=== PATIENT | female | born 1995 | race Caucasian/White ===

== ENCOUNTER → 2019-07-17 12:55 | Outpatient (CLI) | payer SELFPAY ==
[2019-07-17 13:54] LABS: HCG,Quantitative 9951 mIU/mL
== END ==
PROVIDERS: PCP Internal Medicine; Visit Provider Emergency Medicine
DX: O20.0 Threatened abortion (principal)
CPT/HCPCS: 36415; 84702

== ENCOUNTER 2019-11-22 17:49 | Outpatient (CLI) | payer OTHER, SELFPAY ==
[2019-11-22 18:10] VITALS: BMI 38.5
[2019-11-22 18:15] VITALS: BP 147/98; PULSE 115; RESP 20; TEMP 36.8; O2SAT 98; BMI 38.5
[2019-11-22 18:26] LABS: Microscopic, Urine URINE MICROSCOPIC (MICROSCOPIC)
[2019-11-22 18:31] LABS: Appearance,Urine CLEAR (Clear); Bilirubin,Urine Negative (Negative); Blood, Urine Negative (Negative); Color,Urine YELLOW (Yellow); Glucose,Urine (UA) Negative (Negative); Ketones,Urine Negative (Negative); Leukocyte Esterase,Urine Negative (Negative); Nitrate,Urine Negative (Negative); PH,Urine 6.5 (5.0-8.5); Protein,Urine Negative (Negative); Specific Gravity, Urine 1.025 (1.005-1.030); Urobilinogen,Urine 0.2 EU/dl (0.2)
[2019-11-22 19:02] LABS: Bacteria,Urine Trace /lpf
[2019-11-22 19:10] LABS: Amphetamine/Metha Screen,Urine Negative ng/mL (<1000); Barbiturates Screen,Urine Negative ng/mL (<200); Benzodiazepines Screen,Urine Negative ng/mL (<200); Cannabinoid Screen,Urine Negative ng/mL (<50); Cocaine Screen,Urine Negative ng/mL (<300); Methadone Screen,Urine Negative ng/mL (<300); Opiate Screen,Urine Negative ng/mL (<300); Phencyclidine Screen,Urine Negative ng/mL (<25)
== END 2019-11-22 18:54 | disposition home or self-care (01) ==
LOC: OBOUT 17:54 → OB 17:56
PROVIDERS: PCP Obstetrics & Gynecology; Visit Provider Obstetrics & Gynecology
DX: O13.2 Gestational [pregnancy-induced] hypertension without significant proteinuria, second trimester (principal); O12.00 Gestational edema, unspecified trimester; Z3A.23 23 weeks gestation of pregnancy
CPT/HCPCS: 59025; 80305; 81001

== ENCOUNTER 2019-12-11 09:48 | Outpatient (CLI) | payer OTHER, SELFPAY ==
[2019-12-11 10:05] VITALS: BP 119/66; PULSE 87; RESP 18; TEMP 36.9
[2019-12-11 10:19] VITALS: BMI 38.0
[2019-12-11 10:32] LABS: Microscopic, Urine URINE MICROSCOPIC (MICROSCOPIC)
[2019-12-11 10:34] LABS: Appearance,Urine SL CLOUDY (Clear); Bilirubin,Urine Negative (Negative); Blood, Urine Negative (Negative); Color,Urine YELLOW (Yellow); Glucose,Urine (UA) Negative (Negative); Ketones,Urine Negative (Negative); Leukocyte Esterase,Urine Negative (Negative); Nitrate,Urine Negative (Negative); Protein,Urine Negative (Negative); Specific Gravity, Urine 1.025 (1.005-1.030); Urobilinogen,Urine 0.2 EU/dl (0.2)
[2019-12-11 10:49] LABS: Amphetamine/Metha Screen,Urine Negative ng/mL (<1000); Barbiturates Screen,Urine Negative ng/mL (<200); Benzodiazepines Screen,Urine Negative ng/mL (<200); Cannabinoid Screen,Urine Negative ng/mL (<50); Cocaine Screen,Urine Negative ng/mL (<300); Methadone Screen,Urine Negative ng/mL (<300); Opiate Screen,Urine Negative ng/mL (<300); Phencyclidine Screen,Urine Negative ng/mL (<25)
[2019-12-11 10:53] LABS: Bacteria,Urine Trace /lpf
[2019-12-11 11:01] VITALS: BMI 38.0
== END 2019-12-11 11:40 | disposition home or self-care (01) ==
LOC: OBOUT 09:50 → OB 09:51
PROVIDERS: PCP Internal Medicine; Visit Provider Nurse Practitioner Obstetrics & Gynecology
DX: O26.92 Pregnancy related conditions, unspecified, second trimester (principal); Z3A.26 26 weeks gestation of pregnancy; R11.2 Nausea with vomiting, unspecified
CPT/HCPCS: 59025; 80305; 81001; 96365; G0463

== ENCOUNTER 2019-12-29 21:28 | Outpatient (CLI) | payer OTHER, SELFPAY ==
[2019-12-29 21:46] VITALS: BMI 40.0
[2019-12-29 21:47] VITALS: BP 163/93; PULSE 115; RESP 20; TEMP 36.7; O2SAT 98; BMI 40.0
[2019-12-29 21:50] LABS: Microscopic, Urine URINE MICROSCOPIC (MICROSCOPIC)
[2019-12-29 21:52] LABS: Appearance,Urine CLOUDY (Clear); Bilirubin,Urine Negative (Negative); Blood, Urine Negative (Negative); Color,Urine YELLOW (Yellow); Glucose,Urine (UA) Negative (Negative); Ketones,Urine Negative (Negative); Leukocyte Esterase,Urine Negative (Negative); Nitrate,Urine Negative (Negative); PH,Urine 7.5 (5.0-8.5); Protein,Urine Negative (Negative); Urobilinogen,Urine 0.2 EU/dl (0.2)
[2019-12-29 21:54] LABS: Amorphous Sediment,Urine 4+ /lpf
[2019-12-29 21:58] LABS: Amphetamine/Metha Screen,Urine Negative ng/mL (<1000); Barbiturates Screen,Urine Negative ng/mL (<200); Benzodiazepines Screen,Urine Negative ng/mL (<200); Cannabinoid Screen,Urine Negative ng/mL (<50); Cocaine Screen,Urine Negative ng/mL (<300); Methadone Screen,Urine Negative ng/mL (<300); Opiate Screen,Urine Negative ng/mL (<300); Phencyclidine Screen,Urine Negative ng/mL (<25)
== END 2019-12-29 22:35 | disposition home or self-care (01) ==
LOC: OBOUT 21:30 → OB 21:31
PROVIDERS: PCP Obstetrics & Gynecology; Visit Provider Nurse Practitioner Obstetrics & Gynecology
DX: O13.2 Gestational [pregnancy-induced] hypertension without significant proteinuria, second trimester (principal); Z3A.28 28 weeks gestation of pregnancy
CPT/HCPCS: 59025; 80305; 81001; G0463

== ENCOUNTER 2020-05-08 15:15 | Emergency (ER) | payer OTHER, SELFPAY ==
[2020-05-08 15:15] VITALS: BP 124/76; PULSE 76; RESP 20; TEMP 36.8; O2SAT 98; BMI 34.0
--- NOTE | 2020-05-08 15:38 | HMH.EDUTC ---
[facility] [place] Disposition Clinical Impression: Gastroenteritis Disposition: Home, Self-Care Condition on Discharge: Good Instructions: Viral Gastroenteritis, DI for Viral Gastroenteritis -- Adult Additional Instructions: Drink plenty of fluids. Take tylenol or ibuprofen for pain or fever. Take the medications as directed. Follow up with your regular doctor. GO TO THE ER FOR ANY WORSENING SYMPTOMS Prescriptions: Ondansetron [Zofran 4mg ODT] 4 mg PO Q8HP PRN #20 tab.rapdis PRN Reason: Nausea Transmission Status[facility] Referrals: Holland Schmitt [Primary Care Provider] - Forms: Work/School Release Time of Disposition: 15:49 Medical Decision Making - Medical Records Medical records reviewed: No: I reviewed the patient's medical records. - Catracho Inquiry Pt receiving controlled substance: No Vital Signs: 05/08/20 15:15 05/08/20 15:55 Temperature 98.2 F 98.2 F Temperature Source Oral Pulse Rate 76 Pulse Rate [Left Radial] 76 Respiratory Rate 20 20 Blood Pressure 124/76 Blood Pressure [Left Arm] 124/76 Blood Pressure Mean [Left Arm] 92 Blood Pressure Source [Left Arm] Automatic Cuff Blood Pressure Position [Left Arm] Sitting 02 Sat by Pulse Oximetry 98 Oxygen Delivery Method Room Air [facility] [place] HPI - General Stated complaint: nausea, diarrhea Time Seen by Provider: 05/08/20 15:39 - History of Present Illness Provider Complaint: She states that since early this morning she has had nausea and vomiting and diarrhea. She has vomited X2. She denies abdominal pain. She denies any urinary complaints. She denies any fever or chills. - Related Data Home Medications Medication Instructions Recorded Confirmed Pnv No.95/Ferrous Fum/Folic AC 1 each PO DAILY 07/15/19 01/10/20 [ Caplet] Labetalol HCl 200 mg PO QID 01/10/20 01/10/20 ondansetron HCL [Zofran 8mg Tab*] 8 mg PO TID PRN 01/10/20 01/10/20 Previous Rx's Medication Instructions Recorded Ondansetron [Zofran 4mg ODT] 4 mg PO Q8HP PRN #20 tab.rapdis 05/08/20 Allergies Allergy/AdvReac Type Severity Reaction Status Date / Time No Known Allergies Allergy Verified 12/11/19 11:26 [facility] History - Hepatitis A Screen Attestation statement:: This patient has been screened for Hepatitis A risk factors. I have reviewed the patient's past medical history: Yes Medical History: Denies:: Anxiety, Depression, Diabetes Mellitus Type 1, Diabetes Mellitus Type 2 Other Surgeries: Yes: Amputation: No Fractures: No Comment: wisdom teeth - Social History Smoking Status: Current every day smoker Tobacco Type: cigarettes # Packs/Day (cigarettes): 1 Alcohol Intake: never Alcohol Intake Frequency:: holidays/special occasions only Substance Use Type: denies use Occupational Status: other - Psychiatric History Pschychiatric History:: Denies:: Anxiety, Depression Family Hx:: Cancer, Diabetes, Heart Attack, Hyperlipidemia, Hypertension, Coronary Artery Disease, Stroke, Kidney Disease, Asthma ROS Obtained: Yes All systems reviewed & no additional complaints - Constitutional Constitutional: Denies chills, Denies fever(s) - ENT Ears, Nose, Mouth, and Throat: Denies dizziness, Denies otalgia, Denies sore throat - Cardiovascular Cardiovascular: Denies chest pain - Respiratory Respiratory: No chest congestion, No cough, No dyspnea, No coughing up blood, No stridor, No wheezing - Gastrointestinal Gastrointestingal: Reports: as per HPI Physical Exam - General General appearance: alert, in no apparent distress - Head Head exam: atraumatic, normocephalic, normal inspection - Eye Eye exam: Present: normal appearance, PERRL, EOMI - ENT ENT exam: Present: normal exam, normal oropharynx, mucous membranes moist, TM's normal bilaterally, normal external ear exam - Neck Neck exam: Present: normal inspection, full ROM, trachea midline. Absent: meningismus, lymphadeno
[2020-05-08 15:55] VITALS: BP 124/76; PULSE 76; RESP 20; TEMP 36.8; O2SAT 98
== END 2020-05-08 15:55 | disposition home or self-care (01) ==
PROVIDERS: Emergency Provider Nurse Practitioner Family; PCP Internal Medicine
DX: K52.9 Noninfective gastroenteritis and colitis, unspecified (principal); F17.210 Nicotine dependence, cigarettes, uncomplicated
CPT/HCPCS: 99201

== ENCOUNTER 2020-05-09 13:00 | Emergency (ER) | payer OTHER, SELFPAY ==
--- NOTE | 2020-05-09 13:23 | HMH.EDUTC ---
[facility] [place] Disposition Clinical Impression: Gastroenteritis Fever Qualifiers: Fever type: unspecified Qualified Code(s): R50.9 - Fever, unspecified Disposition: Home, Self-Care Condition on Discharge: Good Instructions: Preventing the Spread of Coronavirus Discharge Instructions Additional Instructions: Drink plenty of fluids. Take tylenol or ibuprofen for pain or fever. Take the zofran for nausea. If your abdominal pain worsens, you have to go to the er for further evaluation for appendicitis. Follow up with your regular doctor. GO TO THE ER FOR ANY WORSENING SYMPTOMS Referrals: Holland Schmitt [Primary Care Provider] - Forms: Work/School Release Time of Disposition: 14:03 Medical Decision Making - Medical Records Medical records reviewed: No: I reviewed the patient's medical records. - Catracho Inquiry Pt receiving controlled substance: No Vital Signs: 05/09/20 13:32 05/09/20 14:05 Temperature 99.6 F 99.6 F Temperature Source Oral Pulse Rate 90 Pulse Rate [Right Brachial] 90 Respiratory Rate 20 20 Blood Pressure 119/83 Blood Pressure [Right Arm] 119/83 Blood Pressure Mean [Right Arm] 95 Blood Pressure Source [Right Arm] Automatic Cuff Blood Pressure Position [Right Arm] Sitting 02 Sat by Pulse Oximetry 97 Oxygen Delivery Method Room Air Orders (Tests/Meds): ORDERS Category Date Time Status SARS-CoV-2, LIBBY Stat Lab 05/09/20 13:47 Received [facility] [place] HPI - General Stated complaint: need covid test for work Time Seen by Provider: 05/09/20 13:23 - History of Present Illness Provider Complaint: She was here in the [facility] yesterday with c/o n/v/d. She states that her work is going to require her to have a test for COVID-19 before she is allowed to return to work. - Related Data Home Medications Medication Instructions Recorded Confirmed Pnv No.95/Ferrous Fum/Folic AC 1 each PO DAILY 07/15/19 01/10/20 [ Caplet] Labetalol HCl 200 mg PO QID 01/10/20 01/10/20 ondansetron HCL [Zofran 8mg Tab*] 8 mg PO TID PRN 01/10/20 01/10/20 Previous Rx's Medication Instructions Recorded Ondansetron [Zofran 4mg ODT] 4 mg PO Q8HP PRN #20 tab.rapdis 05/08/20 Allergies Allergy/AdvReac Type Severity Reaction Status Date / Time No Known Allergies Allergy Verified 12/11/19 11:26 [facility] History - Hepatitis A Screen Attestation statement:: This patient has been screened for Hepatitis A risk factors. I have reviewed the patient's past medical history: Yes Medical History: Denies:: Anxiety, Depression, Diabetes Mellitus Type 1, Diabetes Mellitus Type 2 Other Surgeries: Yes: Amputation: No Fractures: No Comment: wisdom teeth - Social History Smoking Status: Current every day smoker Tobacco Type: cigarettes # Packs/Day (cigarettes): 1 Alcohol Intake: never Alcohol Intake Frequency:: holidays/special occasions only Substance Use Type: denies use Occupational Status: employed - Psychiatric History Pschychiatric History:: Denies:: Anxiety, Depression Family Hx:: Cancer, Diabetes, Heart Attack, Hyperlipidemia, Hypertension, Coronary Artery Disease, Stroke, Kidney Disease, Asthma ROS Obtained: Yes All systems reviewed & no additional complaints - Constitutional Constitutional: Denies chills, Denies fever(s), Reports poor appetite, Reports malaise - Eyes Eyes: Denies eye discharge - ENT Ears, Nose, Mouth, and Throat: Denies dizziness, Denies otalgia, Denies sore throat - Cardiovascular Cardiovascular: Denies chest pain - Respiratory Respiratory: No chest congestion, No cough, No dyspnea, No coughing up blood, No stridor, No wheezing - Gastrointestinal Gastrointestingal: Reports: as per HPI Physical Exam - General General appearance: alert, in no apparent distress - Head Head exam: atraumatic, normocephalic, normal inspection - Eye Eye exam: Present: normal appearance, PERRL, EOMI - ENT ENT exam: Present: normal e
[2020-05-09 13:31] VITALS: BMI 35.6
[2020-05-09 13:32] VITALS: BP 119/83; PULSE 90; RESP 20; TEMP 37.6; O2SAT 97; BMI 35.6
[2020-05-09 14:05] VITALS: BP 119/83; PULSE 90; RESP 20; TEMP 37.6; O2SAT 97
[2020-05-10 15:14] LABS: Covid-19 Nasal PCR Sendout Lex NOT DETECTED
== END 2020-05-09 14:07 | disposition home or self-care (01) ==
PROVIDERS: Emergency Provider Nurse Practitioner Family; PCP Internal Medicine
DX: Z20.828 Contact with and (suspected) exposure to other viral communicable diseases (principal); K52.9 Noninfective gastroenteritis and colitis, unspecified; F41.8 Other specified anxiety disorders; F17.210 Nicotine dependence, cigarettes, uncomplicated
CPT/HCPCS: 99201; U0004

== ENCOUNTER 2020-06-03 15:26 | Emergency (ER) | payer OTHER, SELFPAY ==
[2020-06-03 16:12] LABS: Apearance,Urine Slightly Cloudy (Clear); Bilirubin,Urine Negative (Negative); Blood, Urine Negative (Negative); Color,Urine Yellow (Yellow); Glucose,Urine (UA) Negative (Negative); Ketones,Urine Negative (Negative); Protein,Urine Negative (Negative); UTC Leukocyte Esterase,Urine Negative (Negative); UTC Nitrate,Urine Negative (Negative); UTC Pregnancy Test, Urine Negative (Negative); Urobilinogen,Urine 0.2 EU/dl (0.2)
[2020-06-03 16:13] VITALS: BP 135/85; PULSE 85; RESP 20; TEMP 37.1; O2SAT 98; BMI 33.6
--- NOTE | 2020-06-03 16:48 | HMH.EDUTC ---
[facility] [place] Clinical Impression: Constipation Qualifiers: Constipation type: unspecified constipation type Qualified Code(s): K59.00 - Constipation, unspecified Disposition: Home, Self-Care Condition on Discharge: Good Instructions: Constipation, Acute Abdominal Pain, DI for Abdominal Pain-Adult, DI for Constipation, Magnesium Citrate Additional Instructions: Make sure to follow up with Family Doctor as soon as possible for further testing and evaluation *Follow up with OBGYN for further evaluation and examination Return if needed Straight to ER if any life threatening symptoms, worsening of pain etc Magnesium Citrate oral Make sure to go and pick it up now and take to help relieve constipation Prescriptions: Magnesium Citrate [Magnesium Citrate 10oz Bottle] 240 ml PO ONCE #1 bottle Transmission Status: Pending to [id number] Referrals: Holland Schmitt [Primary Care Provider] - As needed Waldo Guidry MD [Staff Physician] - Betty Freed MD [Staff Physician] - Forms: Work/School Release Time of Disposition: 17:19 Medical Decision Making - Catracho Inquiry Pt receiving controlled substance: No Catracho was queried for this patient: No Vital Signs: 06/03/20 16:13 Temperature 98.8 F Temperature Source Oral Pulse Rate [Right Brachial] 85 Respiratory Rate 20 Blood Pressure [Right Arm] 135/85 Blood Pressure Mean [Right Arm] 101 Blood Pressure Source [Right Arm] Automatic Cuff Blood Pressure Position [Right Arm] Sitting 02 Sat by Pulse Oximetry 98 Oxygen Delivery Method Room Air - Lab Data Lab results reviewed: Yes: I reviewed the patient's lab results. Lab Results 06/03/20 16:10: Urine Color Yellow, Urine Appearance Slightly cloudy, Urine pH 6.0, Ur Specific [place] 1.030, Urine Protein Negative, Urine Glucose (UA) Negative, Urine Ketones Negative, Urine Blood Negative, Urine Nitrate Negative, Urine Bilirubin Negative, Urine Urobilinogen 0.2, Ur Leukocyte Esterase Negative, Tst Clinic Negative Orders (Tests/Meds): ORDERS Category Date Time Status XR KUB Stat Exams 06/03/20 16:50 Ordered - Radiology Data #1 Image(s): KUB Image Reviewed: Yes I reviewed the patient's radiology image w/the ED provider Discussed with Dr Rowe, constipation - Reevaluation(s) Time: 16:55 Reevaluation #1: Discussed with patient and recommended transfer to ED for further workup and evaluation for abdominal pain and patient refused transfer States that pain has eased at this time and she will follow up with family doctor or OBGYN for further testing and evaluation Patient aware of risks associated with lower abdominal pain and still declined transfer [facility] [place] HPI - General Stated complaint: Lower abd pain Time Seen by Provider: 06/03/20 16:48 Mode of Arrival: Ambulatory Source of Information: Patient Limitations: No Limitations Description of Symptoms (Recalled from Triage Doc. by RN): PATIENT C/O LOWER ABDOMINAL X 3 WEEKS. SHE IS 3 MONTHS VIA . SHE C/O OF A RANDOM SHARP PAIN AND PRESSURE WHEN SHE IS URINATING OR HAVING A BOWEL MOVEMENT. ALSO C/O DIARRHEA. DENIES FEVER, NAUSEA OR VOMITING. HEENT Symptoms (Recalled from RN notes): No Resp Symptoms (Recalled from RN notes): No Skin Symptoms (Recalled from RN notes): No MS Symptoms (Recalled from RN notes): No Functional Status (Recalled from RN notes): WNL - History of Present Illness Provider Complaint: Patient states that she has been having cramping achy like pain on and off for about 3 weeks in her lower abdomen that seems worse when she urinates or has a bowel movement States that she had a baby about 3mths ago States that she called OBGYN to go see them but they couldnt get her in until Jun. States that she wanted to come and get her urine checked to see if she may have a UTI - Related Data Previous Rx's Medication Instructions Recorded Magnesium Citrate [Magnesium 240 ml PO ONCE #1 bottle 06/03/20 [place]
--- NOTE | 2020-06-03 16:50 | XR_ITS ---
PROCEDURE: XR KUB CLINICAL INDICATION: PAIN COMPARISON: No exams were available for comparison FINDINGS: No fracture or dislocation. No lytic or blastic change. There is normal mineralization. The joint spaces are well-preserved. No significant degenerative/arthritic changes. No erosive changes evident. Other findings:Small calcific density is present in the right and left paracentral aspect of the urinary bladder and could be due phleboliths. IMPRESSION: No acute findings. Dictated by: Luis Wyman MD 06/03/2020 22:23 Electronically signed by Luis Wyman MD in [place] 06/03/2020 22:23
[2020-06-03 17:20] VITALS: BP 135/85; PULSE 85; RESP 20; TEMP 37.1; O2SAT 98
== END 2020-06-03 17:25 | disposition home or self-care (01) ==
PROVIDERS: Emergency Provider Nurse Practitioner; PCP Internal Medicine
DX: K59.00 Constipation, unspecified (principal); F17.210 Nicotine dependence, cigarettes, uncomplicated
CPT/HCPCS: 74018; 81003; 81025; 99202

== ENCOUNTER → 2020-06-14 10:26 | Outpatient (CLI) | payer OTHER, SELFPAY ==
--- NOTE | 2020-06-14 10:30 | CT_ITS ---
PROCEDURE: CT ABDOMEN PELVIS WO CON CLINICAL INDICATION: ABD PAIN,DIARRHEA COMPARISON: No exams were available for comparison TECHNIQUE: Axial images obtained with sagittal and coronal reformats. All CT scans at the facility use one or more dose reduction, viz: automated exposure control, ma/kV adjustment per patient size (including targeted exams where dose is matched to indication, i.e. head), or iterative reconstruction technique. FINDINGS: LOWER THORAX: No acute finding. Included extent of the lung bases are clear. ABDOMEN & PELVIS: Hepatobiliary: The liver has a normal size with a smooth surface. Normal unenhanced liver. The gallbladder and biliary ductal system is unremarkable. Pancreas: Normal unenhanced pancreas. Spleen: The spleen is not enlarged. Adrenals: The adrenal glands are normal. Kidneys, ureters and bladder: Both kidneys have normal size and morphology. There is no demonstrated renal calculi or hydronephrosis. Both ureters have normal course and caliber. The urinary bladder is nearly empty and demonstrate normal uniform wall thickness. No ureteral or bladder calculi are identified. Gastrointestinal: The stomach and small bowel are normal with no obstruction or inflammation. The large bowel is within normal limits. Moderate amount of retained fecal debris is seen in the ascending and transverse colon. The appendix appears normal. Reproductive organs: The uterus and right adnexa is unremarkable. There is a 6.3 x 5.7 x 6.0 centimeter large left adnexal/ovarian cyst seen with mass effect superiorly on the urinary bladder. Lymphatic system: There is no significant adenopathy demonstrated within the abdomen/pelvis. Vasculature: Normal caliber abdominal aorta. Peritoneum: No free fluid, free air or inflammation. Abdominal wall and musculoskeletal: Unremarkable. IMPRESSION: 1.A 6.3 x 5.7 x 6.0 centimeter left adnexal/ovarian cyst is seen with mass effect on the urinary bladder. Pelvic ultrasound correlation is recommended. 2. Essentially otherwise unremarkable non IV contrast CT abdomen/pelvis. Dictated by: Bijal Sandhu 06/14/2020 11:56 Electronically signed by Bijal Sandhu in [place] 06/14/2020 11:56
== END ==
PROVIDERS: PCP Internal Medicine; Visit Provider Internal Medicine
DX: R10.30 Lower abdominal pain, unspecified (principal); R19.7 Diarrhea, unspecified
CPT/HCPCS: 74176

== ENCOUNTER → 2020-06-28 10:57 | Outpatient (CLI) | payer OTHER, SELFPAY ==
--- NOTE | 2020-06-28 11:00 | US_ITS ---
PROCEDURE: US TRANSVAGINAL CLINICAL INDICATION: ABD PAIN, L OVARIAN CYST COMPARISON: US US OB TRANSVAGINAL from 07/15/2019 FINDINGS: UTERUS: 9cm x 6cmx 5cm with a combined endometrial thickness of 16.9mm LEFT OVARY: [id number] with a volume of 46.7ml. RIGHT OVARY: [id number] with a volume of 8.8ml. The uterus has a somewhat bulky appearance in the fundal region. She there is a simple left ovarian cyst 4.4 x 3 cm. The endometrium is thickened at 17 mm. A small amount fluid is present in the endocervical canal. There are 2 right ovarian cyst at 1.6 and 1.7 cm. No cul-de-sac fluid evident IMPRESSION: The 1. Thickened endometrium at 17 mm. 2. 5 cm simple left ovarian cyst and 2 smaller simple right ovarian cyst. Suggest follow-up ultrasound to confirm resolution of the 5 cm cyst Dictated by: Luis Wyman MD 06/28/2020 14:06 Luis Wyman MD in [place] 06/28/2020 14:06
== END ==
PROVIDERS: PCP Internal Medicine; Visit Provider Internal Medicine
DX: R10.9 Unspecified abdominal pain (principal); N83.202 Unspecified ovarian cyst, left side
CPT/HCPCS: 76830

== ENCOUNTER → 2020-07-01 17:41 | Outpatient (CLI) | payer OTHER, SELFPAY | PROVIDERS: Visit Provider Nurse Practitioner Obstetrics & Gynecology | DX: N39.0 Urinary tract infection, site not specified (principal) | CPT/HCPCS: 87086; 87088; 87186 ==

== ENCOUNTER → 2020-07-03 15:39 | Outpatient (CLI) | payer OTHER, SELFPAY ==
[2020-07-03 16:09] LABS: Basophils # 0.1 K/mm3 (0-0.2); Basophils % 0.4 % (0.1-2.0); Eosinophils # 0.2 K/mm3 (0.0-0.4); Eosinophils % 1.9 % (0.1-12.0); Hematocrit 34.2 % (37.0-47.0); Lymphocytes # 3.4 K/mm3 (0.7-4.5); Lymphocytes % 30.1 % (10-50); Mean Corpuscular HGB Conc 32.2 g/dL (31.8-35.4); Mean Corpuscular Volume 71.3 fl (81-99); Mean Platelet Volume 7.7 fl (7.4-10.4); Monocytes # 0.5 K/mm3 (0.1-1.0); Neutrophils # 7.1 K/mm3 (1.8-7.8); Neutrophils % 63.5 % (37.0-80.0); Platelet Count 395 K/mm3 (142-424); Red Blood Count 4.79 M/mm3 (4.20-5.40); White Blood Count 11.1 K/mm3 (4.8-10.8)
[2020-07-03 16:45] LABS: HCG Qualitative, Serum Negative (Negative)
[2020-07-03 17:05] LABS: Chloride 104 mmol/L (98-107); Potassium 4.3 mmoL/L (3.5-5.1); Sodium 138 mmol/L (136-145)
[2020-07-03 17:08] LABS: Anion Gap 15.3 mEq/L (5-15); Blood Urea Nitrogen 15 mg/dl (7-17); Carbon Dioxide 23 mmol/L (22.0-30.0); Estimated Glomerular Filt Rate 123 ml/min (>60); GFR (African American) 149 ML/MIN (>60)
[2020-07-03 17:09] LABS: Glucose 96 mg/dl (74-100)
[2020-07-03 17:18] LABS: Coronavirus 19 IgG Antibody Negative (Negative); Coronavirus 19 IgM Antibody Negative (Negative)
== END ==
PROVIDERS: Visit Provider Nurse Practitioner Obstetrics & Gynecology
DX: Z01.818 Encounter for other preprocedural examination (principal); N83.202 Unspecified ovarian cyst, left side; R10.32 Left lower quadrant pain
CPT/HCPCS: 36415; 80048; 84703; 85025; 86328

== ENCOUNTER 2020-07-05 09:28 | Day surgery (SDC) | payer OTHER, SELFPAY ==
[2020-07-03 11:20] VITALS: BMI 32.5
[2020-07-05] VITALS (14 sets, daily range): BP systolic 127–152; BP diastolic 70–95; PULSE 58–91; RESP 12–20; TEMP 22.2–36.8; O2SAT 96–100
--- NOTE | 2020-07-05 11:07 | HMH.ANESCL ---
[facility] Anesthesia Checklist - Structural Data Admitted From: Home Planned Operative Procedure/s: dx lap Consent for Planned Operative Procedure(s) Verified: Yes - Additional verifications Anesthesia Reactions: No Hx Blood Transfusions: No Blood Transfusion Reaction: No - Airway Assessment C-Spine Mobility Assessed: Yes TMJ Mobility Assessed: Yes Dentition: Good Dentition - Neurological Assessment Level of Consciousness: Awake, Alert, Appropriate - Anesthesia Plan Anesthesia Risk discussed: Yes Anesthesia Plan: Verified ASA Class: I Anesthesia Type: General [facility] History I have reviewed the patient's past medical history: Yes Medical History: Denies:: Anxiety, Cancer, Depression, Diabetes Mellitus Type 1, Diabetes Mellitus Type 2, MRSA, Seizures *Have you ever received a pneumonia vaccine?: No *Have you received a flu vaccine this season?: Yes Other Medical History: Denies: Blood Transfusion Reaction Anesthesia experience/problems:: none Other Surgeries: Yes: Amputation: No Fractures: No - *Social History Last grade of school completed: 9th or 10th Smoking Status: Current every day smoker Tobacco Type: cigarettes # Packs/Day (cigarettes): 1 Alcohol Intake: current Alcohol Intake Frequency:: holidays/special occasions only Substance Use Type: denies use *Occupational Status:: employed *Travel in the last 8 weeks: None - Psychiatric History Pschychiatric History:: Denies:: Anxiety, Depression Family Hx:: Cancer, Diabetes, Heart Attack, Hyperlipidemia, Hypertension, Coronary Artery Disease, Stroke, Kidney Disease, Asthma
--- NOTE | 2020-07-05 11:39 | HMH.OPNOTE ---
Date of procedure: 07/05/20 Pre-op Diagnosis:: Left lower quadrant pain, left ovarian cyst Post-op Diagnosis:: Left lower quadrant pain, left ovarian cyst, omental adhesions Procedure performed:: Laparoscopic left ovarian cystectomy, lysis of adhesions Surgeon:: Waldo Guidry MD SOA ARCHITECT:: Kota Carlson Anesthesia: GETA Estimated blood loss (mL): 50 Clinical Note:: She is a 25-year-old 2 para 2 lady who complains of left lower quadrant pain. She had an ultrasound that showed a 5 cm left ovarian cyst. She had 2 previous sections. After having discussed the risks and benefits we elected perform a laparoscopic left ovarian cystectomy Operative findings:: She had a 5 cm left ovarian cyst that was filled with clear straw-colored fluid. There were adhesions of omentum to the anterior abdominal wall just below the umbilicus and these adhesions were also adherent into the left lower quadrant overlying the uterus and left side of the bladder. The right ovary had a couple of small follicles tubes appeared normal. Upper abdomen appeared normal. Operative note:: She was taken the operating room where general anesthesia was found be adequate. She was prepped and draped in normal sterile fashion in the semilithotomy position. A weighted speculum is placed in the vagina and the anterior lip of the cervix was grasped with a tenaculum. The cervix was dilated to approximately 4 mm. I then inserted a Hiral uterine manipulator into the uterine cavity. The balloon was insufflated. I then changed gloves and injected 10 cc of 0.25% ropivacaine around the umbilicus. I made a small incision within the umbilicus and inserted a Veress needle into the abdominal cavity. The abdominal cavity was then insufflated with carbon oxide gas to pressure of 20 mmHg. I then inserted a 5 mm trocar under direct vision. I then injected through and through the pubic hairline, made a small incision here and inserted an 8 mm trocar under direct vision. Identified the inferior epigastric arteries on the left side, went lateral to these and injected through and through. I made a small incision and inserted a 5 mm trocar here under direct vision. Upon entering the abdominal cavity was noted that there was omentum hanging all the way down the anterior abdominal wall. There was an approximately 1 cm area of omentum adherent to the anterior abdominal wall and there were filmy adhesions of omentum into the left lower quadrant above the uterus along the vesicouterine peritoneum on the left side. I placed the camera in the left lower quadrant port and using harmonic scalpel through the umbilical port I was able to take down the omental adhesion just below the umbilicus. I then placed the camera in the umbilical port and using harmonic scalpel and graspers with traction countertraction I was able to free up the omental adhesion on the left side and into the left lower quadrant. After freeing up the adhesion I then turned my attention to the left ovary. The left ovary was grasped and using harmonic scalpel I drilled the blade into the uterine cyst. I then opened up the cyst wall with harmonic scalpel. I then peeled out a portion of the ovarian cyst wall that was unable to completely remove the entire cyst wall. It was quite adherent and I did not want to cause any tearing or bleeding in the ovary. I unroofed a section of the cyst wall and then rinsed the cyst interior with saline. I then placed pieces of Gelfoam into the ovarian cyst cavity to obtain excellent hemostasis. The ovary was then wrapped in Interceed. The pelvis was then rinsed well with saline. After once again assuring hemostasis I then injected 20 cc of 0.25% ropivacaine into the pelvis. The gas was let out the abdomen once again hemostasis was assured then. We then removed the left lower quadrant trocar under direct vision. The gas was let out of the abdomen once again and the 8 mm trocar was removed. T
--- NOTE | 2020-07-05 11:46 | HMH.ANESI ---
[facility] Anesthesia Record Part I Intake, IV Amount: 1,500 Estimated blood loss (mL): 25 Urine output (mL): 0 Blood Pressure: 140/85 SaO2: 97 Pulse Rate: 91 Respiratory Rate: 12 Temperature: 97.7 F Patient is:: Awake, Stable Stable to PACU at:: 11:45
--- NOTE | 2020-07-05 13:26 | P.PN_ITS ---
[facility] Anesthesia Record Part II Discharge Time: 12:15 Destination: [facility] PACU nurse assessment reviewed?: Yes Patient Condition:: Good Anesthesia Complications:: None Swallowing reflex intact?: Yes Cyanosis?: No Blood Pressure: 127/80 Pulse Rate: 76 Temperature: 98.0 F Mental Status: Alert & Oriented Pain level:: 0 Nausea and/or vomitting:: None Intake, IV Amount: 1,500
== END 2020-07-05 13:20 | disposition home or self-care (01) ==
LOC: OR 09:29
PROVIDERS: PCP Internal Medicine; Visit Provider Nurse Practitioner Obstetrics & Gynecology
PROC: (CPT 58925; principal; 2020-07-05 11:00)
DX: N83.202 Unspecified ovarian cyst, left side (principal); N73.6 Female pelvic peritoneal adhesions (postinfective); Z72.0 Tobacco use; Z80.9 Family history of malignant neoplasm, unspecified; Z83.3 Family history of diabetes mellitus; Z82.49 Family history of ischemic heart disease and other diseases of the circulatory system; Z83.438 Family history of other disorder of lipoprotein metabolism and other lipidemia; Z84.89 Family history of other specified conditions; Z84.1 Family history of disorders of kidney and ureter; Z82.5 Family history of asthma and other chronic lower respiratory diseases
CPT/HCPCS: 58662; 49329; 96374; J2405; J2710

== ENCOUNTER 2020-09-30 14:56 | Emergency (ER) | payer OTHER, SELFPAY ==
[2020-09-30 15:40] VITALS: BP 139/86; PULSE 65; RESP 20; TEMP 37; O2SAT 100; BMI 30.2
--- NOTE | 2020-09-30 15:54 | HMH.EDUTC ---
[facility] [place] Disposition Clinical Impression: Gastroenteritis Disposition: Home, Self-Care Condition on Discharge: Good Instructions: Viral Gastroenteritis, DI for Viral Gastroenteritis -- Adult Additional Instructions: Drink plenty of fluids. Take tylenol for pain or fever. Take the medications as directed. Follow up with your regular doctor. GO TO THE ER FOR ANY WORSENING SYMPTOMS Prescriptions: Ondansetron [Zofran 4mg ODT] 4 mg PO Q8HP PRN #12 tab.rapdis PRN Reason: Nausea Transmission Status: Received by [id number] Referrals: Holland Schmitt [Primary Care Provider] - Forms: Work/School Release Time of Disposition: 15:58 Medical Decision Making - Medical Records Medical records reviewed: No: I reviewed the patient's medical records. - Catracho Inquiry Pt receiving controlled substance: No Vital Signs: 09/30/20 15:40 09/30/20 16:08 Temperature 98.6 F 98.6 F Temperature Source Oral Pulse Rate 65 Pulse Rate [Right Brachial] 65 Respiratory Rate 20 20 Blood Pressure 139/86 Blood Pressure [Right Arm] 139/86 Blood Pressure Mean [Right Arm] 103 Blood Pressure Source [Right Arm] Automatic Cuff Blood Pressure Position [Right Arm] Sitting 02 Sat by Pulse Oximetry 100 Oxygen Delivery Method Room Air - Lab Data Lab Results 09/30/20 15:45: Chlamy pneumoniae PCR Not detected, Adenovirus (PCR) Not detected, B. pertussis DNA (PCR) Not detected, Coronavirus OC43 (PCR) Not detected, Coronavirus HKU1 (PCR) Not detected, Coronavirus 229E (PCR) Not detected, SARS-CoV-2 (PCR) Not detected, Coronavirus NL63 (PCR) Not detected, Human Metapneumovir PCR Not detected, Influenza A (H1) PCR Not detected, Influ A (H1N1/09) PCR Not detected, Influenza A (H3) PCR Not detected, Influenza Type A (PCR) Not detected, Influenza Type B (PCR) Not detected, M. pneumoniae (PCR) Not detected, Parainfluenza 1 (PCR) Not detected, Parainfluenza 2 (PCR) Not detected, Parainfluenza 3 (PCR) Not detected, Parainfluenza 4 (PCR) Not detected, RSV (PCR) Not detected, Entero/Rhino (PCR) Detected A [facility] [place] HPI - General Stated complaint: fever,nausea,wants covid test Time Seen by Provider: 09/30/20 15:54 Mode of Arrival: Ambulatory Source of Information: Patient Limitations: No Limitations Description of Symptoms (Recalled from Triage Doc. by RN): PATIENT C/O FEVER AND NAUSEA THAT STARTED TODAY. STATES HER WORK IS REQUESTING A NEGATIVE COVID TEST FOR HER TO RETURN TO WORK HEENT Symptoms (Recalled from RN notes): No Resp Symptoms (Recalled from RN notes): No Skin Symptoms (Recalled from RN notes): No MS Symptoms (Recalled from RN notes): No Functional Status (Recalled from RN notes): WNL - History of Present Illness Provider Complaint: She states that she had n/v yesterday. She states that today she has began to feel better. She needs a covid test to be allowed to return to work. - Related Data Previous Rx's Medication Instructions Recorded ondansetron 4 mg disintegrating 4 mg PO Q6H #30 tab 07/08/20 tablet oxycodone-acetaminophen 5 mg-325 1 tab PO Q4-6H PRN #30 tab 07/08/20 mg tablet fluconazole 150 mg tablet 150 mg PO Q3D 0 Days #2 tab 08/30/20 terconazole 0.8 % vaginal cream 1 appful VAGINAL HS 3 Days #20 g 08/30/20 Ondansetron [Zofran 4mg ODT] 4 mg PO Q8HP PRN #12 tab.rapdis 09/30/20 Allergies Allergy/AdvReac Type Severity Reaction Status Date / Time No Known Allergies Allergy Verified 07/16/20 09:51 - Worker's Comp Is this a Worker's Comp case?: No [facility] History - Hepatitis A Screen Drug use history?: No High risk sexual behaviors?: No History of sexually transmitted infection?: No Currently employed?: No Childcare worker?: No Do you have indoor plumbing?: Yes Do you have electricity?: Yes Attestation statement:: This patient has been screened for Hepatitis A risk factors. I have reviewed the patient's past medical history: Yes Medical History: Denies:: Anxiety, Cance
[2020-09-30 16:08] VITALS: BP 139/86; PULSE 65; RESP 20; TEMP 37; O2SAT 100
[2020-09-30 19:27] LABS: Adenovirus,PCR Not Detected (NotDetected); Bordetella Pertussis Not Detected (NotDetected); Chlamydophila Pneumoniae, PCR Not Detected (NotDetected); Coronavirus 19, PCR Not Detected (NotDetected); Coronavirus 229E Not Detected (NotDetected); Coronavirus NL63 Not Detected (NotDetected); Coronavirus OC43 Not Detected (NotDetected); Coronovirus HKU1,PCR Not Detected (NotDetected); Human Metapneumovirus Not Detected (NotDetected); Influenza A, PCR Not Detected (NotDetected); Influenza AH1, 2009 Not Detected (NotDetected); Influenza AH1, PCR Not Detected (NotDetected); Influenza AH3,PCR Not Detected (NotDetected); Influenza B, PCR Not Detected (NotDetected); Mycoplasma Pneumoniae, PCR Not Detected (NotDetected); Parainfluenza 1, PCR Not Detected (NotDetected); Parainfluenza 2, PCR Not Detected (NotDetected); Parainfluenza 3, PCR Not Detected (NotDetected); Parainfluenza 4, PCR Not Detected (NotDetected); Respiratory Syncytial Virus Not Detected (NotDetected)
[2020-09-30 20:57] LABS: Rhinovirus/Enterovirus Detected (NotDetected)
== END 2020-09-30 16:10 | disposition home or self-care (01) ==
PROVIDERS: Emergency Provider Nurse Practitioner Family; PCP Internal Medicine
DX: Z20.828 Contact with and (suspected) exposure to other viral communicable diseases (principal); K52.9 Noninfective gastroenteritis and colitis, unspecified; F17.210 Nicotine dependence, cigarettes, uncomplicated
CPT/HCPCS: 87581; 87633; 87798; 99201; U0003

== ENCOUNTER 2020-10-15 10:44 | Emergency (ER) | payer OTHER, SELFPAY ==
[2020-10-15 10:55] VITALS: BP 133/76; PULSE 69; RESP 18; TEMP 36.8; O2SAT 100; BMI 30.2
--- NOTE | 2020-10-15 11:04 | HMH.EDUTC ---
[facility] [place] Clinical Impression: Viral upper respiratory illness Disposition: Home, Self-Care Condition on Discharge: Good Instructions: Preventing the Spread of Coronavirus Discharge Instructions, Sore Throat, DI for Nasal Congestion Additional Instructions: *Monitor Temp, Over the counter Motrin or Tylenol as directed/as needed Tylenol every 4 hours and Motrin every 6 hours (as long as your family doctor has told you that you can take it) for fever or pain. and straight to ER if unable to lower temp less than 101.0 after medication given *Warm salt water gargles may help to soothe the throat *Throat Lozenges *Warm fluids like tea with honey may help to soothe the throat *Sleep elevated *Humidifier/Vaporizer *Flonase 2 sprays in each nostril daily but be aware that it may take 2-3 days before you notice improvement *Bromfed may cause drowsiness. Know how it effects you (your child) before driving, caring for small child, or sending your child to school. Not other antihistamines/allergy medications while taking bromfed Follow up IMMEDIATELY for new or worsening symptoms or no Noticeable improvement over the next 48-72 hours. 911 for difficulty breathing or swallowing You was tested for today for COVID19 your test result should be back in the next 24-48 hours, you may call to the [facility] later today or tomorrow to see if your test results are back and the result [phone] [facility] hours are 9am-9pm You was given a handout with instructions for Self Quarantine and Self isolation for while you wait on test results and what to do if they are positive If you are positive the Health Dept will be contacting you also Prescriptions: Brompheniramine/Pseudoephed/Dm [Bromfed Dm Cough Syrup] 5 - 10 ml PO Q46H PRN #150 ml PRN Reason: Cough Transmission Status: Pending to [facility] Fluticasone Propionate [Flonase 50mcg nasal spray 16gm] 1 spr NS DAILY #1 bottle Transmission Status: Pending to [facility] Referrals: Holland Schmitt [Primary Care Provider] - As needed Forms: Work/School Release Time of Disposition: 11:12 Medical Decision Making - Catracho Inquiry Pt receiving controlled substance: No Catracho was queried for this patient: No Vital Signs: 10/15/20 10:55 Temperature 98.3 F Temperature Source Oral Pulse Rate [Right Brachial] 69 Respiratory Rate 18 Blood Pressure [Right Arm] 133/76 Blood Pressure Mean [Right Arm] 95 Blood Pressure Source [Right Arm] Automatic Cuff Blood Pressure Position [Right Arm] Sitting 02 Sat by Pulse Oximetry 100 Oxygen Delivery Method Room Air Orders (Tests/Meds): ORDERS Category Date Time Status Covid-19 Nasal PCR [facility] 10/15/20 11:00 Received [facility] [place] - General Stated complaint: covid test Time Seen by Provider: 10/15/20 11:04 Mode of Arrival: Ambulatory Source of Information: Patient Limitations: No Limitations Description of Symptoms (Recalled from Triage Doc. by RN): PATIENT REQUESTING COVID TEST D/T EXPOSURE. C/O RUNNY NOSE, HEADACHE, DIARRHEA, FEVER, COUGH, AND EAR ACHE X 2 DAYS HEENT Symptoms (Recalled from RN notes): Yes Resp Symptoms (Recalled from RN notes): Yes Skin Symptoms (Recalled from RN notes): No MS Symptoms (Recalled from RN notes): No Functional Status (Recalled from RN notes): WNL - History of Present Illness Provider Complaint: Patient state that she wants to get tested for COVID States that her boyfriend that she has been around recently tested positive for COVID States that she has been having body aches, chills, headache cough and diarrhea for the last two days and she didnt want to work if she may have COVID so she came in to get tested - Related Data Previous Rx's Medication Instructions Recorded Brompheniramine/Pseudoephed/Dm 5 - 10 ml PO Q46H PRN #150 ml 10/15/20 [Bromfed Dm Cough Syrup] Fluticasone Propionate [Flonase 1 spr NS DAILY #1 bottle 10/15/20 50mcg nasal spray 16gm] Allergies
[2020-10-15 11:15] LABS: UTC Influenza A Antigen Negative (Negative); UTC Influenza B Antigen Negative (Negative)
[2020-10-15 11:16] VITALS: BP 133/76; PULSE 69; RESP 18; TEMP 36.8; O2SAT 100
[2020-10-16 15:54] LABS: Covid-19 Nasal PCR Sendout Lex Not Detected
== END 2020-10-15 11:19 | disposition home or self-care (01) ==
PROVIDERS: Emergency Provider Nurse Practitioner; PCP Internal Medicine
DX: Z20.828 Contact with and (suspected) exposure to other viral communicable diseases (principal); J06.9 Acute upper respiratory infection, unspecified; F17.210 Nicotine dependence, cigarettes, uncomplicated
CPT/HCPCS: 87804; 99201; U0004

== ENCOUNTER 2020-11-21 11:16 | Emergency (ER) | payer OTHER, SELFPAY ==
[2020-11-21 11:16] VITALS: BP 148/97; PULSE 89; RESP 16; TEMP 37.2; O2SAT 98; BMI 31.1
[2020-11-21 12:12] LABS: UTC Influenza A Antigen Negative (Negative)
[2020-11-21 12:14] LABS: UTC Influenza B Antigen Negative (Negative)
--- NOTE | 2020-11-21 12:26 | HMH.EDUTC ---
[facility] Disposition Clinical Impression: Viral syndrome Acute bronchitis Qualifiers: Bronchitis organism: unspecified organism Qualified Code(s): J20.9 - Acute bronchitis, unspecified Disposition: Home, Self-Care Condition on Discharge: Good Instructions: DI for Acute Bronchitis, DI for COVID-19 (Suspected or Confirmed ), Preventing the Spread of Coronavirus Discharge Instructions Additional Instructions: Drink plenty of fluids. Take tylenol for pain or fever. Return if you begin to have difficulty breathing. Follow up with your regular doctor. GO TO THE ER FOR ANY WORSENING SYMPTOMS *Monitor Temp, Over the counter Motrin or Tylenol as directed/as needed Tylenol every 4 hours and Motrin every 6 hours (as long as your family doctor has told you that you can take it) for fever or pain. and straight to ER if unable to lower temp less than 101.0 after medication given Follow up IMMEDIATELY for new or worsening symptoms or no Noticeable improvement over the next 48-72 hours. 911 for difficulty breathing or swallowing You were tested for today for COVID19 your test result should be back in the next 24-48 hours, you may call to the [facility] to see if your test results are back in the next 48 hours [phone] [facility] hours are 9am-9pm You was given a handout with instructions for Self Quarantine and Self isolation for while you wait on test results and what to do if they are positive If you are positive the Health Dept will be contacting you also Prescriptions: Brompheniramine/Pseudoephed/Dm [Bromfed Dm Cough Syrup] 5 ml PO Q6HP PRN #240 syrup PRN Reason: Cough Transmission Status: Received by [facility] Ondansetron [Zofran 4mg ODT] 4 mg PO Q8HP PRN #9 tab.rapdis PRN Reason: Nausea Transmission Status: Received by [facility] Azithromycin [Z-Dannie 250mg Tab*] 250 mg PO UD DOSE PK #6 tab Transmission Status: Received by [facility] Referrals: Holland Schmitt [Primary Care Provider] - Time of Disposition: 12:29 Medical Decision Making - Medical Records Medical records reviewed: No: I reviewed the patient's medical records. - Catracho Inquiry Pt receiving controlled substance: No Vital Signs: 11/21/20 11:16 11/21/20 12:38 Temperature 98.9 F 98.9 F Temperature Source Oral Oral Pulse Rate 89 Pulse Rate [Right] 89 Respiratory Rate 16 16 Blood Pressure 148/97 H Blood Pressure [Right Arm] 148/97 H Blood Pressure Mean [Right Arm] 114 02 Sat by Pulse Oximetry 98 - Lab Data Lab Results 11/21/20 11:50: Influenza Type A Ag Negative, Influenza Type B Ag Negative [facility] HPI - General Stated complaint: covid test Time Seen by Provider: 11/21/20 12:26 Mode of Arrival: Ambulatory Description of Symptoms (Recalled from Triage Doc. by RN): pt request COVID test pt c/o of cough BREWER, body aches, chills since yesterday HEENT Symptoms (Recalled from RN notes): Yes Resp Symptoms (Recalled from RN notes): Yes Skin Symptoms (Recalled from RN notes): No MS Symptoms (Recalled from RN notes): No Functional Status (Recalled from RN notes): wnl - History of Present Illness Provider Complaint: She c/o 2 days of cough, chest congestion, low grade fever and malaise. She has been coughing up greenish sputum. She denies shortness of breath and chest pain. - Related Data Previous Rx's Medication Instructions Recorded Brompheniramine/Pseudoephed/Dm 5 - 10 ml PO Q46H PRN #150 ml 10/15/20 [Bromfed Dm Cough Syrup] Fluticasone Propionate [Flonase 1 spr NS DAILY #1 bottle 10/15/20 50mcg nasal spray 16gm] Azithromycin [Z-Dannie 250mg Tab*] 250 mg PO UD DOSE PK #6 tab 11/21/20 Brompheniramine/Pseudoephed/Dm 5 ml PO Q6HP PRN #240 syrup 11/21/20 [Bromfed Dm Cough Syrup] Ondansetron [Zofran 4mg ODT] 4 mg PO Q8HP PRN #9 tab.rapdis 11/21/20 Allergies Allergy/AdvReac Type Severity Reaction Status Date / Time No Known Allergies Allergy Verified 07/16/20 09:51 - Work
[2020-11-21 12:38] VITALS: BP 148/97; PULSE 89; RESP 16; TEMP 37.2; O2SAT 98
== END 2020-11-21 12:41 | disposition home or self-care (01) ==
PROVIDERS: Emergency Provider Nurse Practitioner Family; PCP Internal Medicine
DX: Z20.822 Contact with and (suspected) exposure to COVID-19 (principal); B34.9 Viral infection, unspecified; J20.9 Acute bronchitis, unspecified; F41.8 Other specified anxiety disorders; F17.210 Nicotine dependence, cigarettes, uncomplicated
CPT/HCPCS: 87804; 99202; G0463; U0003

== ENCOUNTER 2021-02-18 02:58 | Emergency (ER) | payer OTHER, SELFPAY ==
[2021-02-18 02:59] VITALS: BP 160/87; PULSE 95; RESP 16; TEMP 36.6; O2SAT 97; BMI 28.3
--- NOTE | 2021-02-18 03:19 | CT_ITS ---
PROCEDURE: CT ABDOMEN PELVIS W CON CLINICAL INDICATION: abd pain Nausea, vomiting, diarrhea, generalized abdominal pain COMPARISON: CT CT ABDOMEN PELVIS WO CON from 06/14/2020 TECHNIQUE: IV Contrast: 75ML Isovue 370 Oral Contrast None Axial images obtained with sagittal and coronal reformats. All CT scans at the facility use one or more dose reduction, viz: automated exposure control, ma/kV adjustment per patient size (including targeted exams where dose is matched to indication, i.e. head), or iterative reconstruction technique. FINDINGS: LOWER THORAX: No acute finding ABDOMEN & PELVIS: The liver, spleen, pancreas, adrenal glands, and kidneys have an unremarkable appearance. No evidence of appendicitis. No intestinal obstruction or free air. Mild thickening of the small bowel in the left mid abdominal region nondistended haustra of versus diverticulosis of the colon in the descending and sigmoid region. Trace amount of fluid in the pelvis. No acute bony findings. No pelvic mass or localized fluid collection. IMPRESSION: Mild thickening of the small bowel which could be due to nondistention or mild enteritis. Dictated by: Luis Wmyan MD 02/18/2021 05:57 Luis Wyman MD in [place] 02/18/2021 05:57
[2021-02-18 03:35] LABS: Microscopic, Urine URINE MICROSCOPIC (MICROSCOPIC)
[2021-02-18 03:36] LABS: Basophils % 0.4 % (0.1-2.0); Eosinophils # 0.1 K/mm3 (0.0-0.4); Eosinophils % 0.9 % (0.1-12.0); Hematocrit 38.1 % (37.0-47.0); Hemoglobin 11.9 g/dL (12.2-16.2); Lymphocytes % 29.7 % (10-50); Mean Corpuscular HGB Conc 31.2 g/dL (31.8-35.4); Mean Corpuscular Hemoglobin 24.5 pg (27.0-31.2); Mean Corpuscular Volume 78.3 fl (81-99); Mean Platelet Volume 7.7 fl (7.4-10.4); Monocytes # 0.5 K/mm3 (0.1-1.0); Neutrophils # 6.4 K/mm3 (1.8-7.8); Platelet Count 384 K/mm3 (142-424); Red Blood Count 4.87 M/mm3 (4.20-5.40)
[2021-02-18 03:38] LABS: Urine Pregnancy, HCG Qual. Negative (Negative)
[2021-02-18 03:38] LABS: Appearance,Urine SL CLOUDY (Clear); Bilirubin,Urine Negative (Negative); Blood, Urine 2+ (Negative); Color,Urine YELLOW (Yellow); Glucose,Urine (UA) Negative (Negative); Ketones,Urine Negative (Negative); Leukocyte Esterase,Urine Negative (Negative); Nitrate,Urine Negative (Negative); Protein,Urine Negative (Negative); Specific Gravity, Urine >= 1.030 (1.005-1.030); Urobilinogen,Urine 0.2 EU/dl (0.2)
[2021-02-18 03:41] LABS: Alanine Aminotransferase 30 U/L (12-78); Albumin Level 4.8 g/dl (3.5-5.0); Albumin/Globulin Ratio 1.3 (1.1-1.8); Alkaline Phosphatase 85 U/L (38-126); Anion Gap 11.9 mEq/L (5-15); Aspartate Amino Transferase 42 U/L (14-36); Bilirubin,Total 0.3 mg/dl (0.2-1.3); Blood Urea Nitrogen 18 mg/dl (7-17); Calcium 9.9 mg/dl (8.4-10.2); Carbon Dioxide 27 mmol/L (22.0-30.0); Chloride 105 mmol/L (98-107); Creatinine Clearance Estimated 116 mL/min (50-200); Estimated Glomerular Filt Rate 88 ml/min (>60); GFR (African American) 107 ML/MIN (>60); Globulin 3.7 g/dL (1.3-3.2); Glucose 102 mg/dl (74-100); Potassium 3.9 mmoL/L (3.5-5.1); Sodium 140 mmol/L (136-145); Total Protein,Serum 8.5 g/dl (6.3-8.2)
[2021-02-18 03:47] LABS: C-Reactive Protein 0.4 mg/L (0-4)
[2021-02-18 04:01] LABS: Bacteria,Urine 2+ /lpf; Mucus,Urine 1+ /lpf; RBC,Urine Occasional #/hpf (0-3); Squamous Epithelial Cell,Urine TNTC #/hpf (0-5)
[2021-02-18 04:02] LABS: Procalcitonin < 0.030 ng/mL (0.0-2.0)
--- NOTE | 2021-02-18 04:06 | HMH.EDNVD ---
ED Disposition Clinical Impression: Abdominal pain Qualifiers: Abdominal location: unspecified location Qualified Code(s): R10.9 - Unspecified abdominal pain Disposition: Home, Self-Care Condition on Discharge: Good Instructions: DI for Acute Abdominal Pain Additional Instructions: see pcp for cachorro [place] Referrals: Holland Schmitt [Primary Care Provider] - - Critical Care Critical Care Time: No Attestation: On 02/18/21, the high probability of a clinically significant, sudden or life threatening deterioration of the following system(s) required my full and direct attention, intervention and personal management. The time I documented below is in addition to time spent performing reported procedures but includes the following listed in this critical care notation. Medical Decision Making - Medical Records Medical records reviewed: Yes: I reviewed the patient's medical records. - Catracho Inquiry Pt receiving controlled substance: No Vital Signs: 02/18/21 02:59 02/18/21 04:46 02/18/21 05:00 Temperature 97.8 F Temperature Source Oral Pulse Rate 79 63 Pulse Rate [Right] 95 H Respiratory Rate 16 Blood Pressure 143/90 H 129/66 Blood Pressure [Right Arm] 160/87 H Blood Pressure Mean 128 88 Blood Pressure Mean [Right Arm] 111 02 Sat by Pulse Oximetry 97 99 98 Oxygen Delivery Method Room Air 02/18/21 05:30 Temperature Temperature Source Pulse Rate 71 Pulse Rate [Right] Respiratory Rate Blood Pressure 142/75 H Blood Pressure [Right Arm] Blood Pressure Mean 92 Blood Pressure Mean [Right Arm] 02 Sat by Pulse Oximetry 98 Oxygen Delivery Method - Lab Data Lab results reviewed: Yes: I reviewed the patient's lab results. Lab Results 02/18/21 03:15: WBC 10.0, RBC 4.87, Hgb 11.9 L, Hct 38.1, MCV 78.3 L, MCH 24.5 L, MCHC 31.2 L, RDW 15.0, Plt Count 384, MPV 7.7, Neut % (Auto) 64.0, Lymph % (Auto) 29.7, Harlan % (Auto) 5.0, Eos % (Auto) 0.9, Baso % (Auto) 0.4, Neut # (Auto) 6.4, Lymph # (Auto) 3.0, Harlan # (Auto) 0.5, Eos # (Auto) 0.1, Baso # (Auto) 0.0, ESR 22 H 02/18/21 03:15: Urine HCG, Qual Negative 02/18/21 03:15: Sodium 140, Potassium 3.9, Chloride 105, Carbon Dioxide 27, Anion Gap 11.9, BUN 18 H, Creatinine 0.80, Estimated Creat Clear 116, Estimated GFR 88, Est GFR ( Amer) 107, Glucose 102 H, Calcium 9.9, Total Bilirubin 0.3, AST 42 H, ALT 30, Alkaline Phosphatase 85, C-Reactive Protein 0.4, Total Protein 8.5 H, Albumin 4.8, Globulin 3.7 H, Albumin/Globulin Ratio 1.3, Procalcitonin < 0.030 02/18/21 03:19: Urine Color Yellow, Urine Appearance Sl cloudy, Urine pH 6.0, Ur Specific [place] >= 1.030, Urine Protein Negative, Urine Glucose (UA) Negative, Urine Ketones Negative, Urine Blood 2+, Urine Nitrate Negative, Urine Bilirubin Negative, Urine Urobilinogen 0.2, Ur Leukocyte Esterase Negative, Urine RBC Occasional, Urine WBC 3-5, Ur Squamous Epith Cells Tntc, Urine Bacteria 2+, Urine Mucus 1+ Result diagrams: 02/18/21 03:15 02/18/21 03:15 Orders (Tests/Meds): ED MEDICATIONS Generic Name Dose Route Start Last Admin Trade Name Freq PRN Reason Stop Dose Admin Sodium Chloride 1,000 mls @ 999 mls/hr 02/18/21 03:30 02/18/21 03:23 Sod Chlor 0.9% 1000ml Bag IV 02/18/21 04:30 999 mls/hr .Q1H1M EVERARDO Administration Sodium Chloride 1,000 mls @ 999 mls/hr 02/18/21 04:15 02/18/21 04:16 Sod Chlor 0.9% 1000ml Bag IV 02/18/21 05:15 999 mls/hr .Q1H1M EVERARDO Administration Discontinued Medications Generic Name Dose Route Start Last Admin Trade Name Freq PRN Reason Stop Dose Admin Iopamidol 75 ml 02/18/21 04:39 02/18/21 04:40 Iopamidol-370 (76%);100ml Bottle IV 02/18/21 04:40 75 ml ONCE ONE Administration Ketorolac Tromethamine 30 mg 02/18/21 03:21 02/18/21 03:47 Ketorolac 30mg/Ml Vial IV 02/18/21 03:22 30 mg ONCE ONE Administration Metoclopramide HCl 10 mg 02/18/21 03:21 02/18/21 03:47 Metoclopramide Hcl 10mg/2ml Vial IVP 02/18/21 03:22 1
[2021-02-18 04:08] LABS: Erythrocyte Sedimentation Rate 22 mm/hr (0-20)
[2021-02-18 04:46] VITALS: BP 143/90; PULSE 79; O2SAT 99
[2021-02-18 05:00] VITALS: BP 129/66; PULSE 63; O2SAT 98
[2021-02-18 05:30] VITALS: BP 142/75; PULSE 71; O2SAT 98
[2021-02-18 05:58] VITALS: BP 134/75; PULSE 84; RESP 16; TEMP 36.6; O2SAT 97
== END 2021-02-18 05:59 | disposition home or self-care (01) ==
PROVIDERS: Emergency Provider Emergency Medicine; PCP Internal Medicine
DX: R10.30 Lower abdominal pain, unspecified (principal); R42 Dizziness and giddiness; F17.210 Nicotine dependence, cigarettes, uncomplicated
CPT/HCPCS: 74177; 80053; 81001; 81025; 84145; 85025; 85651; 86140; 87086; 96366; 96375; 99283; J2405; Q9967

== ENCOUNTER 2021-03-19 18:03 | Emergency (ER) | payer OTHER, SELFPAY ==
[2021-03-19 18:16] VITALS: BP 135/91; PULSE 81; RESP 18; TEMP 36.8; O2SAT 100; BMI 28.3
--- NOTE | 2021-03-19 18:24 | HMH.EDUTC ---
[facility] [place] Disposition Clinical Impression: Encounter for laboratory testing for COVID-19 virus Conjunctivitis Qualifiers: Conjunctivitis type: unspecified Laterality: right Qualified Code(s): H10.9 - Unspecified conjunctivitis Disposition: Home, Self-Care Condition on Discharge: Good Instructions: Conjunctivitis, DI for Conjunctivitis, DI for COVID-19 (Suspected or Confirmed ), COVID-19: Testing and Tracing, Preventing the Spread of Coronavirus Discharge Instructions Additional Instructions: Wash hands well before and after placing eye drops in right eye *Clean eye with warm water and baby shampoo Cool compresses may help with pain and swelling Return if needed Follow up with Eye Doctor if no improvement or any worsening of symptoms Follow up with your Family Doctor if needed Prescriptions: Polymyxin B Sulf/Trimethoprim [Polytrim Ophth Soln 10mL Bottle] 2 drops EYE-RIGHT Q6H 7 Days #1 bottle Transmission Status: Pending to [id number] Referrals: Holland Schmitt [Primary Care Provider] - As needed Forms: Work/School Release Time of Disposition: 18:35 Medical Decision Making - Catracho Inquiry Pt receiving controlled substance: No Catracho was queried for this patient: No Vital Signs: 03/19/21 18:16 Temperature 98.2 F Temperature Source Oral Pulse Rate [Right] 81 Respiratory Rate 18 Blood Pressure [Right Arm] 135/91 H Blood Pressure Mean [Right Arm] 105 Blood Pressure Source [Right Arm] Automatic Cuff Blood Pressure Position [Right Arm] Sitting 02 Sat by Pulse Oximetry 100 Orders (Tests/Meds): ORDERS Category Date Time Status Covid-19 Nasal PCR ([facility]) Routine Lab 03/19/21 18:10 Received [facility] [place] HPI - General Stated complaint: covid exposure, test Time Seen by Provider: 03/19/21 18:25 Mode of Arrival: Ambulatory Source of Information: Patient Limitations: No Limitations Description of Symptoms (Recalled from Triage Doc. by RN): pt was exposed to covid positive coworker around wednesday. pt is now congested and wanting a covid test. pt R eye is also red and swollen. this came on suddenly this afternoon. HEENT Symptoms (Recalled from RN notes): Yes (congestion and swollen R eye) Resp Symptoms (Recalled from RN notes): No Skin Symptoms (Recalled from RN notes): No MS Symptoms (Recalled from RN notes): No Functional Status (Recalled from RN notes): na - History of Present Illness Provider Complaint: Patient state that she was around someone last week that tested positive for COVID States that they wanted her to wait 5 days and get tested States that earlier today she noticed she was having some drainage from her right eye and it was red and looked swollen Denies FB denies known injury States that swelling just started today - Related Data Previous Rx's Medication Instructions Recorded Brompheniramine/Pseudoephed/Dm 5 - 10 ml PO Q46H PRN #150 ml 10/15/20 [Bromfed Dm Cough Syrup] Fluticasone Propionate [Flonase 1 spr NS DAILY #1 bottle 10/15/20 50mcg nasal spray 16gm] Azithromycin [Z-Dannie 250mg Tab*] 250 mg PO UD DOSE PK #6 tab 11/21/20 Brompheniramine/Pseudoephed/Dm 5 ml PO Q6HP PRN #240 syrup 11/21/20 [Bromfed Dm Cough Syrup] Ondansetron [Zofran 4mg ODT] 4 mg PO Q8HP PRN #9 tab.rapdis 11/21/20 Polymyxin B Sulf/Trimethoprim 2 drops EYE-RIGHT Q6H 7 Days #1 03/19/21 [Polytrim Ophth Soln 10mL Bottle] bottle Allergies Allergy/AdvReac Type Severity Reaction Status Date / Time No Known Allergies Allergy Verified 03/19/21 18:20 - Worker's Comp Is this a Worker's Comp case?: No H History - Hepatitis A Screen Drug use history?: No High risk sexual behaviors?: No History of sexually transmitted infection?: No Currently employed?: No Childcare worker?: No Do you have indoor plumbing?: Yes Do you have electricity?: Yes Attestation statement:: This patient has been screened for Hepatitis A risk factors. I have reviewed the patient's past medical history: Yes Medica
[2021-03-19 18:39] VITALS: BP 127/85; PULSE 83; RESP 14; TEMP 36.7
== END 2021-03-19 18:40 | disposition home or self-care (01) ==
PROVIDERS: Emergency Provider Nurse Practitioner; PCP Internal Medicine
DX: Z20.822 Contact with and (suspected) exposure to COVID-19 (principal); H10.31 Unspecified acute conjunctivitis, right eye; F17.210 Nicotine dependence, cigarettes, uncomplicated
CPT/HCPCS: 99202; G0463; U0003

== ENCOUNTER 2021-07-04 19:15 | Emergency (ER) | payer OTHER, SELFPAY ==
[2021-07-04 19:15] VITALS: BP 131/71; PULSE 71; RESP 16; TEMP 36.7; O2SAT 97; BMI 32.1
--- NOTE | 2021-07-04 19:52 | HMH.EDUTC ---
[facility] Disposition Clinical Impression: Strep throat Disposition: Home, Self-Care Condition on Discharge: Good Instructions: DI for Strep Throat, Strep Throat, Amoxicillin Additional Instructions: *Monitor Temp, Over the counter Motrin or Tylenol as directed/as needed Tylenol every 4 hours and Motrin every 6 hours (as long as your family doctor has told you that you can take it) for fever or pain. and straight to ER if unable to lower temp less than 101.0 after medication given *Warm salt water gargles may help to soothe the throat *Throat Lozenges *Warm fluids like tea with honey may help to soothe the throat *Sleep elevated *Humidifier/Vaporizer *If you did not take Penicillin shot or was unable to, start taking antibiotic immediately and make sure that you take it for the FULL length of time although you should start to feel better in 24-48 hours *change toothbrush and toothpaste 24-48 hours after starting to take antibiotics so you do not reinfect yourself Monitor Temp. Tylenol and/or Ibuprofen as needed. ER if fever is no less than 101 despite alternating Tylenol and Ibuprofen * Encourage fluids, water, Gatorade, powerade, pedialyte if /toddler/or child *Cold fluids, popsicles and ice cream may feel good on his throat Follow up IMMEDIATELY for new or worsening symptoms or no Noticeable improvement over the next 48-72 hours. 911 for difficulty breathing or swallowing You were tested for today for COVID19 your test result should be back in the next 24-48 hours, you may call to the [facility] to see if your test results are back in the next 48 hours [phone] [facility] hours are 9am-9pm You was given a handout with instructions for Self Quarantine and Self isolation for while you wait on test results and what to do if they are positive If you are positive the Health Dept will be contacting you also Make sure to take your Vitamins Vit. C Vit D and Zinc if you can take them Prescriptions: Amoxicillin [Amoxicillin 875MG Tab] 875 mg PO Q12H #20 tab Transmission Status: Pending to [facility]/pharmacy #[id number] Referrals: Holland Schmitt [Primary Care Provider] - As needed Forms: Work/School Release Time of Disposition: 20:11 Medical Decision Making - Catracho Inquiry Pt receiving controlled substance: No Catracho was queried for this patient: No Vital Signs: 07/04/21 19:15 Temperature 98.1 F Temperature Source Oral Pulse Rate [Right Brachial] 71 Respiratory Rate 16 Blood Pressure [Right Arm] 131/71 Blood Pressure Mean [Right Arm] 91 Blood Pressure Source [Right Arm] Automatic Cuff Blood Pressure Position [Right Arm] Sitting 02 Sat by Pulse Oximetry 97 Oxygen Delivery Method Room Air - Lab Data Lab results reviewed: Yes: I reviewed the patient's lab results. Lab Results 07/04/21 19:50: Strep Scn Rapid Clinic Positive A Orders (Tests/Meds): ORDERS Category Date Time Status Covid-19 Nasal PCR ([facility]) Routine Lab 07/04/21 19:31 Received [facility] HPI - General Stated complaint: Vovid test, BREWER,Vomiting,Body aches Time Seen by Provider: 07/04/21 19:52 Mode of Arrival: Ambulatory Source of Information: Patient Limitations: No Limitations Description of Symptoms (Recalled from Triage Doc. by RN): PATIENT REQUESTING COVID TEST. C/O SORE THROAT, EAR PAIN, HEADACHE, NAUSEA AND FATIGUE HEENT Symptoms (Recalled from RN notes): Yes Resp Symptoms (Recalled from RN notes): No Skin Symptoms (Recalled from RN notes): No MS Symptoms (Recalled from RN notes): No Functional Status (Recalled from RN notes): WNL - History of Present Illness Provider Complaint: Patient state that she has been having sore throat, pain and pressure in her ears, headache nausea and fatigue States that she was worried and wanted to get tested for COVID and get checked out when she was still not feeling well this evening - Related Data Home Medications Medication Instructions Recorded Confirmed Sertraline HCl [Zoloft] 50 mg PO DAILY 07/04/2106/16
[2021-07-04 19:55] LABS: UTC Strep Screen (Rapid) Positive (Negative)
[2021-07-04 20:18] VITALS: BP 131/71; PULSE 71; RESP 16; TEMP 36.7; O2SAT 97
== END 2021-07-04 20:19 | disposition home or self-care (01) ==
PROVIDERS: Emergency Provider Nurse Practitioner; PCP Internal Medicine
DX: J02.0 Streptococcal pharyngitis (principal); Z20.822 Contact with and (suspected) exposure to COVID-19; F17.210 Nicotine dependence, cigarettes, uncomplicated
CPT/HCPCS: 87880; 99203; G0463; U0003

== ENCOUNTER 2021-07-09 13:09 | Emergency (ER) | payer OTHER, SELFPAY ==
[2021-07-09 13:10] VITALS: BP 114/82; PULSE 86; RESP 18; O2SAT 98; BMI 32.1
--- NOTE | 2021-07-09 13:26 | XR_ITS ---
PROCEDURE: XR CHEST 2V CLINICAL HISTORY: soa COMPARISON: No exams were available for comparison FINDINGS: The cardiomediastinal silhouette and pulmonary vascularity are within normal limits. The lungs are clear without infiltrates, suspicious nodules, or pleural effusions. Mild thoracic curvature convex right IMPRESSION: No acute findings. Dictated by: Luis Wyman MD 07/09/2021 14:05 Luis Wyman MD in [place] 07/09/2021 14:05
--- NOTE | 2021-07-09 13:27 | CT_ITS ---
PROCEDURE INFORMATION: Exam: CT Abdomen And Pelvis With Contrast Exam date and time: 07/09/2021 1:27 PM Age: 26 years old Clinical indication: Abdominal pain; Generalized; Additional info: Abd pain TECHNIQUE: Imaging protocol: Computed tomography of the abdomen and pelvis with contrast. Radiation optimization: All CT scans at this facility use at least one of these dose optimization techniques: automated exposure control; mA and/or kV adjustment per patient size (includes targeted exams where dose is matched to clinical indication); or iterative reconstruction. Contrast material: ISOVUE; Contrast volume: 75 ml; Contrast route: IV; COMPARISON: CT ABDOMEN PELVIS W CON 02/18/2021 3:50 AM FINDINGS: Liver: Normal. No mass. Gallbladder and bile ducts: Normal. No calcified stones. No ductal dilation. Pancreas: Normal. No ductal dilation. Spleen: Normal. No splenomegaly. Adrenal glands: Normal. No mass. Kidneys and ureters: Normal. No hydronephrosis. Stomach and bowel: Large amount of stool throughout the large bowel. Appendix: Appendix normal. Intraperitoneal space: Unremarkable. No free air. No significant fluid collection. Vasculature: Flow within the superior mesenteric artery, celiac trunk and inferior mesenteric arteries. Lymph nodes: Unremarkable. No enlarged lymph nodes. Urinary bladder: Unremarkable as visualized. Reproductive: Small amount of fluid in the pelvis likely adnexal related. Consider pelvic ultrasound if indicated. Bones/joints: Unremarkable. No acute fracture. Soft tissues: Unremarkable. IMPRESSION: 1. Appendix normal. 2. Large amount of stool throughout the large bowel. 3. Small amount of fluid in the pelvis likely adnexal related. Consider pelvic ultrasound if indicated.
[2021-07-09 13:44] LABS: Microscopic, Urine URINE MICROSCOPIC (MICROSCOPIC)
[2021-07-09 13:45] LABS: Appearance,Urine CLEAR (Clear); Bilirubin,Urine Negative (Negative); Blood, Urine Negative (Negative); Color,Urine YELLOW (Yellow); Glucose,Urine (UA) Negative (Negative); Ketones,Urine Negative (Negative); Leukocyte Esterase,Urine Negative (Negative); Nitrate,Urine Negative (Negative); Protein,Urine Negative (Negative); Specific Gravity, Urine 1.025 (1.005-1.030); Urobilinogen,Urine 0.2 EU/dl (0.2)
--- NOTE | 2021-07-09 13:45 | ECG_ITS ---
APPROVED REPORT Exam: Resting ECG HR:75 bpm ECG Measurements Heart Rate 75 AXES IN 166 P 10 QRSd 84 QRS 31 QT 396 T 41 QTc 442 Conclusion Normal sinus rhythm Possible Lateral infarct, age undetermined Abnormal ECG Electronically signed by : Glenn Justin MD 07/10/2021 17:35:15
[2021-07-09 13:48] LABS: Basophils # 0.1 K/mm3 (0-0.2); Basophils % 0.7 % (0.1-2.0); Eosinophils # 0.1 K/mm3 (0.0-0.4); Eosinophils % 1.9 % (0.1-12.0); Hematocrit 37.1 % (37.0-47.0); Hemoglobin 11.9 g/dL (12.2-16.2); Lymphocytes # 2.3 K/mm3 (0.7-4.5); Lymphocytes % 31.9 % (10-50); Mean Corpuscular HGB Conc 32.2 g/dL (31.8-35.4); Mean Corpuscular Hemoglobin 26.7 pg (27.0-31.2); Mean Platelet Volume 8.1 fl (7.4-10.4); Monocytes # 0.4 K/mm3 (0.1-1.0); Monocytes % 4.9 % (1.7-9.3); Neutrophils # 4.4 K/mm3 (1.8-7.8); Neutrophils % 60.6 % (37.0-80.0); Platelet Count 326 K/mm3 (142-424); Red Blood Count 4.48 M/mm3 (4.20-5.40); Red Cell Distribution Width 14.4 % (11.5-17.5); White Blood Count 7.2 K/mm3 (4.8-10.8)
[2021-07-09 13:49] LABS: Chloride 105 mmol/L (98-107); Potassium 4.3 mmoL/L (3.5-5.1); Sodium 138 mmol/L (136-145)
[2021-07-09 13:50] LABS: Urine Pregnancy, HCG Qual. Negative (Negative)
[2021-07-09 13:52] LABS: Alanine Aminotransferase 19 U/L (12-78); Albumin/Globulin Ratio 1.2 (1.1-1.8); Alkaline Phosphatase 86 U/L (38-126); Anion Gap 13.3 mEq/L (5-15); Aspartate Amino Transferase 27 U/L (14-36); Bilirubin,Total 0.2 mg/dl (0.2-1.3); Blood Urea Nitrogen 17 mg/dl (7-17); Carbon Dioxide 24 mmol/L (22.0-30.0); Creatinine Clearance Estimated 150 mL/min (50-200); Estimated Glomerular Filt Rate 102 ml/min (>60); GFR (African American) 123 ML/MIN (>60); Globulin 3.4 g/dL (1.3-3.2); Total Protein,Serum 7.4 g/dl (6.3-8.2)
[2021-07-09 13:53] LABS: Calcium 9.1 mg/dl (8.4-10.2); Glucose 101 mg/dl (74-100)
--- NOTE | 2021-07-09 14:29 | ECG_ITS ---
APPROVED REPORT Exam: Resting ECG HR:64 bpm ECG Measurements Heart Rate 64 AXES ND 190 P 20 QRSd 78 QRS 34 QT 416 T 51 QTc 429 Conclusion Normal sinus rhythm Normal ECG Electronically signed by : Glenn Justin MD 07/10/2021 17:34:54
[2021-07-09 14:44] LABS: Coronavirus 19, PCR Not Detected (NotDetected); Influenza A, PCR Not Detected (NotDetected); Influenza B, PCR Not Detected (NotDetected)
--- NOTE | 2021-07-09 17:21 | HMH.EDGENADL ---
ED Disposition Clinical Impression: Viral illness, Lower abdominal pain Disposition: Home, Self-Care Condition on Discharge: Good Instructions: DI for Abdominal Pain-Adult, DI for Viral Upper Respiratory Infection -- Adult Additional Instructions: Additional instructions for UPPER RESPIRATORY INFECTION: See your physician if not improving in 3-4 days or if worsening. Rest and drink plenty of fluids. Return immediately if you have an uncontrollable fever greater than 104 degrees, difficulty breathing or shortness of breath, persistent vomiting, or inability to swallow. Additional instructions for ABDOMINAL PAIN: See your physician as soon as possible for further evaluation. Return immediately if worsening abdominal pain, vomiting, shortness of breath, fever, vomiting of blood or abdominal distention. Referrals: Holland Schmitt [Primary Care Provider] - - Critical Care Critical Care Time: No Attestation: On 07/09/21, the high probability of a clinically significant, sudden or life threatening deterioration of the following system(s) required my full and direct attention, intervention and personal management. The time I documented below is in addition to time spent performing reported procedures but includes the following listed in this critical care notation. Medical Decision Making - Catracho Inquiry Pt receiving controlled substance: No Vital Signs: 07/09/21 13:10 Pulse Rate [Left Radial] 86 Respiratory Rate 18 Blood Pressure [Right Arm] 114/82 Blood Pressure Mean [Right Arm] 92 02 Sat by Pulse Oximetry 98 Oxygen Delivery Method Room Air - Lab Data Lab Results 07/09/21 13:30: WBC 7.2, RBC 4.48, Hgb 11.9 L, Hct 37.1, MCV 83.0, MCH 26.7 L, MCHC 32.2, RDW 14.4, Plt Count 326, MPV 8.1, Neut % (Auto) 60.6, Lymph % (Auto) 31.9, [place] % (Auto) 4.9, Eos % (Auto) 1.9, Baso % (Auto) 0.7, Neut # (Auto) 4.4, Lymph # (Auto) 2.3, [place] # (Auto) 0.4, Eos # (Auto) 0.1, Baso # (Auto) 0.1 07/09/21 13:30: Sodium 138, Potassium 4.3, Chloride 105, Carbon Dioxide 24, Anion Gap 13.3, BUN 17, Creatinine 0.70, Estimated Creat Clear 150, Estimated GFR 102, Est GFR ( Amer) 123, Glucose 101 H, Calcium 9.1, Total Bilirubin 0.2, AST 27, ALT 19, Alkaline Phosphatase 86, Total Protein 7.4, Albumin 4.0, Globulin 3.4 H, Albumin/Globulin Ratio 1.2 07/09/21 13:36: Urine Color Yellow, Urine Appearance Clear, Urine pH 6.0, Ur Specific [place] 1.025, Urine Protein Negative, Urine Glucose (UA) Negative, Urine Ketones Negative, Urine Blood Negative, Urine Nitrate Negative, Urine Bilirubin Negative, Urine Urobilinogen 0.2, Ur Leukocyte Esterase Negative, Urine RBC None, Urine WBC 3-5, Ur Squamous Epith Cells 3-5, Urine Bacteria None 07/09/21 13:36: Urine HCG, Qual Negative 07/09/21 14:37: SARS-CoV-2 (PCR) Not detected, Influenza A Untype (PCR) Not detected, Influenza Type B (PCR) Not detected Result diagrams: 07/09/21 13:30 07/09/21 13:30 Orders (Tests/Meds): ED MEDICATIONS Discontinued Medications Generic Name Dose Route Start Last Admin Trade Name Freq PRN Reason Stop Dose Admin Iopamidol 75 ml 07/09/21 14:09 07/09/21 14:11 Iopamidol-370 (76%);100ml Bottle IV 07/09/21 14:10 75 ml ONCE ONE Administration Sodium Chloride 10 ml 07/09/21 14:09 07/09/21 14:11 Sodium Chloride 0.9% 10ml Syr (Rad Only) IV 07/09/21 14:10 10 ml ONCE ONE Administration - Radiology Data #1 Image(s): Chest Image Reviewed: Yes I have reviewed radiologist's interpretation PROCEDURE: XR CHEST 2V CLINICAL HISTORY: soa COMPARISON: No exams were available for comparison FINDINGS: The cardiomediastinal silhouette and pulmonary vascularity are within normal limits. The lungs are clear without infiltrates, suspicious nodules, or pleural effusions. Mild thoracic curvature convex right IMPRESSION: No acute findings. Dictated by: Luis Wyman MD 07/09/2021 14:05 Luis Wyman MD in [place] 07/09/2021 14:
[2021-07-09 18:13] VITALS: BP 118/69; PULSE 72; O2SAT 100
[2021-07-09 18:20] VITALS: BP 118/69; PULSE 63; RESP 18; TEMP 37; O2SAT 98
== END 2021-07-09 18:21 | disposition home or self-care (01) ==
PROVIDERS: Emergency Provider Emergency Medicine; PCP Internal Medicine
DX: B34.9 Viral infection, unspecified (principal); R10.30 Lower abdominal pain, unspecified; F41.8 Other specified anxiety disorders; Z20.822 Contact with and (suspected) exposure to COVID-19
CPT/HCPCS: 71046; 74177; 80053; 81001; 81025; 85025; 93005; 99283; Q9967; U0003

== ENCOUNTER → 2021-11-19 09:01 | Outpatient (CLI) | payer OTHER, SELFPAY | PROVIDERS: PCP Internal Medicine; Visit Provider Nurse Practitioner | DX: Z20.822 Contact with and (suspected) exposure to COVID-19 (principal) | CPT/HCPCS: C9803; U0003; U0005 ==

== ENCOUNTER 2021-12-25 09:30 | Emergency (ER) | payer BC, OTHER, SELFPAY ==
[2021-12-25 09:44] VITALS: BP 141/88; PULSE 78; RESP 18; TEMP 36.9; O2SAT 99; BMI 30.2
--- NOTE | 2021-12-25 09:49 | HMH.EDUTC ---
[facility] [place] Disposition Clinical Impression: Sinusitis Qualifiers: Sinusitis location: unspecified location Chronicity: unspecified Qualified Code(s): J32.9 - Chronic sinusitis, unspecified Disposition: Home, Self-Care Condition on Discharge: Good Instructions: Sinusitis, DI for Sinusitis, DI for Cough -- Adult Additional Instructions: *Monitor Temp, Over the counter Motrin or Tylenol as directed/as needed Tylenol every 4 hours and Motrin every 6 hours (as long as your family doctor has told you that you can take it) for fever or pain. and straight to ER if unable to lower temp less than 101.0 after medication given *Warm salt water gargles may help to soothe the throat *Throat Lozenges *Warm fluids like tea with honey may help to soothe the throat *Sleep elevated *Humidifier/Vaporizer Take medication as prescribed Return if needed Follow up IMMEDIATELY for new or worsening symptoms or no Noticeable improvement over the next 48-72 hours. 911 for difficulty breathing or swallowing You were tested for today for COVID19 your test result should be back in the next 24-72 hours, you may check your results on the [facility] [employer] [facility] portal if you have trouble logging on you may call support If you are positive someone from the hospital will be calling you Make sure to take your Vitamins Vit. C Vit D and Zinc if you can take them Prescriptions: Benzonatate [Benzonatate 100mg cap] 100 mg PO Q8HP PRN #15 cap PRN Reason: Cough Transmission Status: Pending to [facility] predniSONE [Deltasone 10mg tablet] 10 mg PO BID 5 Days #10 tab Transmission Status: Pending to [facility] Azithromycin [Z-Dannie 250mg Tab] 250 mg PO DIRECTED #6 tab Transmission Status: Pending to [facility] Referrals: Holland Schmitt [Primary Care Provider] - As needed Forms: Work/School Release Time of Disposition: 10:04 Medical Decision Making - Catracho Inquiry Pt receiving controlled substance: No Catracho was queried for this patient: No Vital Signs: 12/25/21 09:44 Temperature 98.4 F Temperature Source Oral Pulse Rate [Brachial] 78 Respiratory Rate 18 Blood Pressure [Right Arm] 141/88 H Blood Pressure Mean [Right Arm] 105 Blood Pressure Source [Right Arm] Automatic Cuff Blood Pressure Position [Right Arm] Sitting 02 Sat by Pulse Oximetry 99 Medical Decision Narrative: Patient states that she has taken both azithromycin and prednisone in the past without complications or reactions Patient denies reports LMP last week [facility] [place] HPI - General Stated complaint: congestion, bilateral ear ache, cough, h/a Time Seen by Provider: 12/25/21 09:49 Description of Symptoms (Recalled from Triage Doc. by RN): pt states that she has has chest congestion, cough, sinus pressure and pain. States her job requested that she comes in for a covid test. 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 States that she has been having sinus pain and pressure, cough, pressure like feeling in her ears and chest congestion States that she feels like she has pressure behind her eyes States that work wanted her to come get checked and tested for COVID due to her symptoms but she feels like she has a sinus infection - Related Data Previous Rx's Medication Instructions Recorded phentermine 37.5 mg tablet 18.75 mg PO DAILY #15 tab 11/03/21 Azithromycin [Z-Dannie 250mg Tab] 250 mg PO DIRECTED #6 tab 12/25/21 Benzonatate [Benzonatate 100mg 100 mg PO Q8HP PRN #15 cap 12/25/21 cap] predniSONE [Deltasone 10mg tablet] 10 mg PO BID 5 Days #10 tab 12/25/21 Allergies Allergy/AdvReac Type Severity Reaction Status Date / Time No Known Allergies Allergy Verified 11/03/21 08:
[2021-12-25 10:14] VITALS: BP 141/88; PULSE 78; RESP 18; TEMP 36.9
== END 2021-12-25 10:16 | disposition home or self-care (01) ==
PROVIDERS: Emergency Provider Nurse Practitioner; PCP Internal Medicine
DX: J32.9 Chronic sinusitis, unspecified (principal); U07.1 COVID-19
CPT/HCPCS: 99202; C9803; G0463; U0003; U0005

== ENCOUNTER → 2022-01-13 14:33 | Outpatient (CLI) | payer BC, OTHER, SELFPAY ==
--- NOTE | 2022-01-13 14:38 | US_ITS ---
PROCEDURE INFORMATION: Exam: US Left Breast, Complete Exam date and time: 01/13/2022 2:38 PM Age: 26 years old Clinical indication: Mass, lump, or swelling; Left; Additional info: Breast lump 200 outer TECHNIQUE: Imaging protocol: Complete ultrasound of all four quadrants of the Left breast and the retroareolar regions, including ultrasound of the axilla when performed. COMPARISON: No relevant recent comparison exams are available. FINDINGS: Breast: High resolution sonography of the LEFT breast is unremarkable. No discrete mass or fluid collection specifically underlying the palpable region at 2 o'clock position. Normal appearing axillary lymph nodes. IMPRESSION: No discrete cystic or solid mass in the LEFT breast at the site of palpable abnormality. ASSESSMENT: BI-RADS 1: Negative: There is nothing to comment on (likelihood of cancer essentially 0%)
--- NOTE | 2022-01-13 14:38 | MM_ITS ---
PROCEDURE INFORMATION: Exam: Bilateral Diagnostic Breast Tomosynthesis Exam date and time: 01/13/2022 2:38 PM Age: 26 years old Clinical indication: Palpable area of thickness right upper outer quadrant/axilla and focal palpable lump in the left upper outer quadrant. Baseline mammogram today.. Family history of breast carcinoma. TECHNIQUE: Imaging protocol: Bilateral Diagnostic tomosynthesis and 2D mammography including computer-aided detection (CAD) when performed. Unilateral or bilateral exam. COMPARISON: Breast ultrasound 01/13/2022 FINDINGS: MAMMOGRAPHY: Breast density: The breasts are heterogeneously dense, which may obscure small masses. Mass: No suspicious masses in either breast. No suspicious finding in the right upper outer quadrant to correlate with the patient's palpable area of thickening. No suspicious finding in the left upper outer quadrant to correlate with the patient's focal palpable lump. Both palpable areas of concern are marked with skin markers. Architectural distortion: No suspicious distortion. Calcifications: No suspicious calcifications. Asymmetric density: None. Skin thickening: None. Axillary adenopathy: None. IMPRESSION: No mammographic evidence of malignancy in the left breast. No suspicious findings in the left upper outer quadrant to correlate with the patient's clinical symptoms. Left breast ultrasound performed on same day 01/13/2022 (reported separately) was negative for suspicious mass or malignancy in the region of the palpable lump. Suggest close clinical follow-up with clinical breast exam if symptoms persist. Of note, right breast ultrasound has not been performed for evaluation of the patient's clinical symptoms in the right breast . At this time recommend targeted right breast ultrasound for complete evaluation of the patient's palpable area of thickening in the right upper outer quadrant/axilla. No definite suspicious mammographic findings are seen in the right breast today however sonographic abnormality in the right breast should be excluded for complete evaluation. Please note, biopsy of a clinically suspicious finding on physical exam should not be delayed on the basis of a negative mammogram or ultrasound report. Such findings should be managed on clinical grounds. ASSESSMENT: BI-RADS Category 0: Incomplete- Need Additional Imaging Evaluation and/or Prior Mammograms for Comparison
== END ==
PROVIDERS: PCP Internal Medicine; Visit Provider Internal Medicine
DX: N63.42 Unspecified lump in left breast, subareolar (principal)
CPT/HCPCS: 76641; 77062; 77066; G0279

== ENCOUNTER → 2022-03-03 16:58 | Outpatient (CLI) | payer BC, OTHER, SELFPAY ==
[2022-03-03 17:30] LABS: Adenovirus F 40/41, stool Not Detected (NotDetected); Astrovirus Not Detected (NotDetected); Campylobacter Not Detected (NotDetected); Clostridium Difficile A/B, PCR Not Detected (NotDetected); Cryptosporidium Not Detected (NotDetected); Cyclospora Cayetanesis Not Detected (NotDetected); Entamoeba histolytica Not Detected (NotDetected); Enteroaggregative E coli Not Detected (NotDetected); Enteropathogenic E coli Not Detected (NotDetected); Enterotoxigenic E coli Not Detected (NotDetected); Giardia lamblia Not Detected (NotDetected); Norovirus Not Detected (NotDetected); Plesimonas Shigalloides, PCR Not Detected (NotDetected); Rotavirus A Not Detected (NotDetected); Salmonella, PCR Not Detected (NotDetected); Sapovirus Not Detected (NotDetected); Shiga-like toxin E coli Not Detected (NotDetected); Shigella Enterovasive E coli Not Detected (NotDetected); Vibrio Cholerae Not Detected (NotDetected); Vibrio, PCR Not Detected (NotDetected); Yersinia Entercolitica, PCR Not Detected (NotDetected)
== END ==
PROVIDERS: PCP Internal Medicine; Visit Provider Internal Medicine
DX: K52.9 Noninfective gastroenteritis and colitis, unspecified (principal); E66.3 Overweight; Z68.31 Body mass index [BMI] 31.0-31.9, adult
CPT/HCPCS: 87507

== ENCOUNTER 2022-07-31 14:43 | Emergency (ER) | payer BC, OTHER, SELFPAY ==
[2022-07-31 15:50] VITALS: BP 141/84; PULSE 78; RESP 19; TEMP 36.9; O2SAT 98; BMI 27.4
--- NOTE | 2022-07-31 15:59 | EXP.UTC ---
Discharge Plan Disposition Patient Disposition: Home, Self-Care Condition: Good Prescriptions Prescriptions: New ondansetron 4 mg tablet,disintegrating 4 mg PO Q8H PRN (Reason: Nausea) Qty: 20 0RF Referrals Follow up/Referrals: Holland Schmitt MD [Primary Care Provider] - See instructions Activity Restrictions/Add. Instructions Additional Instructions/Restrictions: Drink extra fluids with and between meals. If you have difficulty drinking, try very small amounts of water or suck on ice chips. ? Avoid fruit juices, as these do not replace minerals and can actually increase diarrhea. ? Children and adults can use sports drinks to replenish electrolytes. Younger children and infants should use products formulated for children, like oral rehydration solutions. ? Eat food in small amounts and let your stomach recover. ? Get lots of rest. You may feel tired or weak. ? No greasy or fried foods for the next 24-48 hours BRAT diet Bananas Rice Apples and [place] ? Make sure to drink plenty of liquids ? Return if needed ? Straight to ER if any life threatening symptoms ? Zofran as prescribed ? You was given an outpatient order for diarrhea panel, please collect specimen and bring back to outpatient lab then call back to the [facility] or follow up with family doctor for results ? Follow up with family doctor in the next 48-72 hours if no improvement or any worsening of symptoms Clinical Impressions Clinical Impression: Diarrhea Stand Alone Forms Stand Alone Forms: Work/School Release Instructions Patient Instructions: Diarrhea, DI for Nausea -- Adult Discharge ED Provider: Rachel Garner [facility] [place] [place] HPI General Stated complaint: Stomach pain, nausea Mode of Arrival: Ambulatory Source of Information: Patient Limitations: No Limitations Time Seen by Provider: 07/31/22 16:00 Description of Symptoms (Recalled from Triage Doc. by RN): C/O diarrhea x2 days HEENT Symptoms (Recalled from RN notes): No Resp Symptoms (Recalled from RN notes): No Skin Symptoms (Recalled from RN notes): No MS Symptoms (Recalled from RN notes): No Functional Status (Recalled from RN notes): n/a History of Present Illness Provider Complaint: Patient states that she thinks she may have a stomach bug States that she has been having diarrhea and nausea for the last couple of days State that today she feels a little better but still having some nausea so she came in Denies fever or chills Related Data Previous Rx's Medication Instructions Recorded ondansetron 4 mg disintegrating 4 mg PO Q8H PRN Nausea #20 tabs 07/31/22 tablet Allergies Allergy/AdvReac Type Severity Reaction Status Date / Time No Known Allergies Allergy Verified 01/28/22 09:22 Worker's Comp Is this a Worker's Comp case?: No PFSH PFSH Social History Smoking Status: Current every day smoker tobacco type: cigarettes packs per day: 1 alcohol intake: current substance use type: denies use current occupational status: employed Travel in the last 8 weeks: None household members: family caffeine: Yes ROS Obtained: Yes All systems reviewed & no additional complaints except as documented and Yes Systems reviewed as appropriate & no additional complaints except as documented Constitutional Constitutional: Reports system reviewed and no additional complaints, except as documented, Reports as per HPI, Denies body ache, Denies chills and Denies fever(s) ENT Ears, Nose, Mouth, and Throat: Reports system reviewed and no additional complaints, except as documented and Reports as per HPI Cardiovascular Cardiovascular: Reports system reviewed and no additional complaints, except as documented and Reports as per HPI Respiratory Respiratory: Reports system reviewed and no additional complaints, except as documented and Reports as per HPI Gastrointestinal Gastrointestingal: Reports system reviewed and no
[2022-07-31 16:11] LABS: UTC Pregnancy Test, Urine Negative (Negative)
[2022-07-31 16:29] VITALS: BP 141/84; PULSE 78; RESP 19; TEMP 36.9; O2SAT 98
== END 2022-07-31 16:29 | disposition home or self-care (01) ==
PROVIDERS: Emergency Provider Nurse Practitioner; PCP Internal Medicine
DX: R19.7 Diarrhea, unspecified (principal); R11.0 Nausea; F17.210 Nicotine dependence, cigarettes, uncomplicated
CPT/HCPCS: 81025; 99212; G0463

== ENCOUNTER 2022-09-29 13:56 | Emergency (ER) | payer BC, OTHER, SELFPAY ==
--- NOTE | 2022-09-29 15:15 | EXP.UTC ---
Discharge Plan Disposition Patient Disposition: Home, Self-Care Condition: Good Prescriptions Prescriptions: New pizxyekpicmsqfw-cvecwvfhy-OR [Bromfed DM] 2-30-10 mg/5 mL Syrup 5 ml PO Q6H PRN (Reason: Cough) Qty: 240 0RF azithromycin [Zithromax] 250 mg tablet 250 mg PO UD DOSE PK Qty: 6 0RF Rx Instructions: Take two (2) tablets today, then one (1) tablet days #2 thru #5 No Action valacyclovir [Valtrex] 500 mg tablet 500 mg PO DAILY 30 Days Qty: 30 11RF phentermine [Adipex-P] 37.5 mg tablet 18.75 mg PO DAILY Qty: 15 0RF Rx Instructions: must administer 30 minutes before or 1-2 hours after breakfast ondansetron 4 mg tablet,disintegrating 4 mg PO Q8H PRN (Reason: Nausea) Qty: 20 0RF Referrals Follow up/Referrals: Holland Schmitt MD [Primary Care Provider] - See instructions Activity Restrictions/Add. Instructions Additional Instructions/Restrictions: Drink plenty of fluids. Take tylenol or ibuprofen for pain or fever. Take the medications as directed. Follow up with your regular doctor. GO TO THE ER FOR ANY WORSENING SYMPTOMS Clinical Impressions Clinical Impression: Viral syndrome, Pharyngitis Stand Alone Forms Stand Alone Forms: Work/School Release Instructions Patient Instructions: DI for Pharyngitis/Tonsillopharyngitis -- Adult, DI for Viral Syndrome Discharge ED Provider: Freddy Acuna [facility] General Stated complaint: Head congestion, Possible UTI Time Seen by Provider: 09/29/22 15:15 History of Present Illness Provider Complaint: She states that for the past 2 days she has had a worsening sore throat. She has had chills, but no fever or body aches. Related Data Previous Rx's Medication Instructions Recorded ondansetron 4 mg disintegrating 4 mg PO Q8H PRN Nausea #20 tabs 07/31/22 tablet valacyclovir 500 mg tablet 500 mg PO DAILY 30 days #30 tabs 08/03/22 (Valtrex) phentermine 37.5 mg tablet 18.75 mg PO DAILY #15 tabs 09/22/22 (Adipex-P) azithromycin 250 mg tablet 250 mg PO UD DOSE PK #6 tabs 09/29/22 (Zithromax) qnmzxszplwvygpe-epfevfvpnpzfgto-TK 5 ml PO Q6H PRN Cough #240 mL 09/29/22 2 mg-30 mg-10 mg/5 mL oral syrup (Bromfed DM) Allergies Allergy/AdvReac Type Severity Reaction Status Date / Time No Known Allergies Allergy Verified 09/29/22 15:34 PFSH PFSH Medical History Genital herpes simplex Surgical History History of delivery Social History Smoking Status: Former smoker alcohol intake: current substance use type: denies use current occupational status: employed Travel in the last 8 weeks: None household members: family caffeine: Yes ROS Obtained: Yes All systems reviewed & no additional complaints except as documented Constitutional Constitutional: Denies chills and Denies fever(s) Eyes Eyes: Denies eye discharge ENT Ears, Nose, Mouth, and Throat: Reports as per HPI Cardiovascular Cardiovascular: Denies chest pain Respiratory Respiratory: Denies chest congestion and Reports cough Gastrointestinal Gastrointestingal: Reports nausea; Denies abdominal pain, constipation, cramping, diarrhea or vomiting Musculoskeletal Musculoskeletal: Denies arthralgias Integumentary/Breasts Skin/Breast: Denies rash Neurologic Neurologic: Denies paresthesias Physical Exam General General appearance: alert and in no apparent distress Head Head exam: atraumatic, normocephalic and normal inspection Eye Eye exam: Present normal appearance, PERRL and EOMI ENT ENT exam: Present mucous membranes moist and normal external ear exam Expanded ENT Exam TM/Canal exam: Bilateral TM: erythema and bulging Nose exam: Absent sinus tenderness Mouth exam: Present normal external inspection; Absent drooling Teeth exam: Present normal inspection Throat exam
[2022-09-29 15:32] VITALS: BP 137/87; PULSE 70; RESP 18; TEMP 37.2; O2SAT 99; BMI 30.8
[2022-09-29 15:32] LABS: UTC Strep Screen (Rapid) Negative (Negative)
[2022-09-29 15:44] LABS: Apearance,Urine Clear (Clear); Color,Urine Yellow (Yellow); Specific Gravity, Urine >= 1.030 (1.005-1.030)
[2022-09-29 15:45] LABS: Bilirubin,Urine Negative (Negative); Blood, Urine Negative (Negative); Glucose,Urine (UA) Negative (Negative); Ketones,Urine Negative (Negative); Protein,Urine Negative (Negative); UTC Leukocyte Esterase,Urine Negative (Negative); UTC Nitrate,Urine Negative (Negative); Urobilinogen,Urine 0.2 EU/dl (0.2)
[2022-09-29 16:13] VITALS: BP 137/87; PULSE 70; RESP 18; TEMP 37.2
[2022-09-29 16:22] LABS: Adenovirus,PCR Not Detected (NotDetected); Bordetella Pertussis Not Detected (NotDetected); Chlamydophila Pneumoniae, PCR Not Detected (NotDetected); Coronavirus 19, PCR Not Detected (NotDetected); Coronavirus 229E Not Detected (NotDetected); Coronavirus NL63 Not Detected (NotDetected); Coronavirus OC43 Not Detected (NotDetected); Coronovirus HKU1,PCR Not Detected (NotDetected); Human Metapneumovirus Not Detected (NotDetected); Influenza A, PCR Not Detected (NotDetected); Influenza AH1, 2009 Not Detected (NotDetected); Influenza AH1, PCR Not Detected (NotDetected); Influenza AH3,PCR Not Detected (NotDetected); Influenza B, PCR Not Detected (NotDetected); Mycoplasma Pneumoniae, PCR Not Detected (NotDetected); Parainfluenza 1, PCR Not Detected (NotDetected); Parainfluenza 2, PCR Not Detected (NotDetected); Parainfluenza 3, PCR Not Detected (NotDetected); Parainfluenza 4, PCR Not Detected (NotDetected); Respiratory Syncytial Virus Not Detected (NotDetected); Rhinovirus/Enterovirus Not Detected (NotDetected)
== END 2022-09-29 16:14 | disposition home or self-care (01) ==
PROVIDERS: Emergency Provider Nurse Practitioner Family; PCP Internal Medicine
DX: J02.9 Acute pharyngitis, unspecified (principal)
CPT/HCPCS: 81003; 87581; 87632; 87798; 87880; 99212; C9803; G0463; U0003; U0005

== ENCOUNTER → 2023-02-05 17:00 | Outpatient (CLI) | payer OTHER, SELFPAY ==
[2023-02-05 17:53] LABS: HCG Qualitative, Serum Negative (Negative)
== END ==
PROVIDERS: PCP Internal Medicine; Visit Provider Internal Medicine
DX: N91.1 Secondary amenorrhea (principal)
CPT/HCPCS: 84703

== ENCOUNTER 2023-04-01 13:17 | Emergency (ER) | payer OTHER, SELFPAY ==
[2023-04-01 13:26] VITALS: BP 125/81; PULSE 96; RESP 16; TEMP 37.2; O2SAT 98; BMI 31.1
--- NOTE | 2023-04-01 14:16 | EXP.UTC ---
Discharge Plan Disposition Patient Disposition: Home, Self-Care Condition: Good Prescriptions Prescriptions: New ondansetron 4 mg tablet,disintegrating 4 mg PO Q8H PRN (Reason: nausea and vomiting) Qty: 10 0RF No Action Myrbetriq 25 mg tablet extended release 24 hr 25 mg PO DAILY Qty: 30 5RF phentermine [Adipex-P] 37.5 mg tablet 18.75 mg PO DAILY Qty: 15 0RF Rx Instructions: must administer 30 minutes before or 1-2 hours after breakfast fluconazole 150 mg tablet 150 mg PO Q3D Qty: 2 0RF Rx Instructions: may repeat second dose 72 hrs after first dose if symptoms persist valacyclovir [Valtrex] 500 mg tablet 500 mg PO DAILY 30 Days Qty: 30 11RF Referrals Follow up/Referrals: Holland Schmitt MD [Primary Care Provider] - See instructions Activity Restrictions/Add. Instructions Additional Instructions/Restrictions: Drink extra fluids with and between meals. If you have difficulty drinking, try very small amounts of water or suck on ice chips. ? Avoid fruit juices, as these do not replace minerals and can actually increase diarrhea. ? Children and adults can use sports drinks to replenish electrolytes. Younger children and infants should use products formulated for children, like oral rehydration solutions. ? Eat food in small amounts and let your stomach recover. ? Get lots of rest. You may feel tired or weak. ? No greasy or fried foods for the next 24-48 hours BRAT diet Bananas Rice Apples and Four Points ? Make sure to drink plenty of liquids ? Return if needed ? Straight to ER if any life threatening symptoms ? Zofran as prescribed ? Follow up with family doctor in the next 48-72 hours if no improvement or any worsening of symptoms Clinical Impressions Clinical Impression: Nausea vomiting and diarrhea Stand Alone Forms Stand Alone Forms: Work/School Release Instructions Patient Instructions: Nausea and Vomiting-Adult, Diarrhea Discharge ED Provider: Rachel Garner [facility] General Stated complaint: Vomiting, diarrhea Mode of Arrival: Ambulatory Source of Information: Patient Limitations: No Limitations Time Seen by Provider: 04/01/23 14:17 Description of Symptoms (Recalled from Triage Doc. by RN): pt c/o n/v/d, myalgia, chills and BREWER since 299 HEENT Symptoms (Recalled from RN notes): Yes Resp Symptoms (Recalled from RN notes): No Skin Symptoms (Recalled from RN notes): No MS Symptoms (Recalled from RN notes): No Functional Status (Recalled from RN notes): wnl History of Present Illness Provider Complaint: Patient states that she woke up this am around 3am with N/V/D States that she is also feeling achy all over and wasnt able to to work today States that she has been feeling tired today and just wanting to lay around Related Data Previous Rx's Medication Instructions Recorded phentermine 37.5 mg tablet 18.75 mg PO DAILY #15 tabs 09/22/22 (Adipex-P) mirabegron 25 mg tablet,extended 25 mg PO DAILY #30 tabs 10/12/22 release 24 hr (Myrbetriq) fluconazole 150 mg tablet 150 mg PO Q3D 2 doses #2 tabs 10/15/22 valacyclovir 500 mg tablet 500 mg PO DAILY 30 days #30 tabs 03/15/23 (Valtrex) ondansetron 4 mg disintegrating 4 mg PO Q8H PRN nausea and 04/01/23 tablet vomiting #10 tabs Allergies Allergy/AdvReac Type Severity Reaction Status Date / Time No Known Allergies Allergy Verified 04/01/23 13:30 Worker's Comp Is this a Worker's Comp case?: No [facility] Disclaimer: The information contained in this section may have been updated after the patient was seen, as this information can be updated by other users. Medical History Genital herpes simplex Surgical History History of delivery Social History Smoking Statu
[2023-04-01 14:42] VITALS: BP 125/81; PULSE 96; RESP 16; TEMP 37.2
== END 2023-04-01 14:58 | disposition home or self-care (01) ==
PROVIDERS: Emergency Provider Nurse Practitioner; PCP Internal Medicine
DX: R11.2 Nausea with vomiting, unspecified (principal); R19.7 Diarrhea, unspecified; Z87.891 Personal history of nicotine dependence; Z20.822 Contact with and (suspected) exposure to COVID-19
CPT/HCPCS: 87635; 99212; 99214; C9803; G0463; U0003; U0005

== ENCOUNTER → 2023-04-23 23:21 | Outpatient (CLI) | payer OTHER, SELFPAY | PROVIDERS: PCP Family Medicine; Visit Provider Family Medicine | DX: R63.5 Abnormal weight gain (principal); Z68.32 Body mass index [BMI] 32.0-32.9, adult | CPT/HCPCS: 84443 ==

== ENCOUNTER 2023-05-24 14:11 | Emergency (ER) | payer OTHER, SELFPAY ==
[2023-05-24 14:12] VITALS: BP 124/92; PULSE 92; RESP 16; TEMP 36.7; O2SAT 100; BMI 30.2
--- NOTE | 2023-05-24 14:48 | EXP.UTC ---
Discharge Plan Disposition Patient Disposition: Home, Self-Care Condition: Good Prescriptions Prescriptions: New ondansetron 4 mg Tablet,Disintegrating 4 mg PO Q8H PRN (Reason: Nausea) Qty: 12 0RF No Action metformin 500 mg tablet 500 mg PO BID Qty: 180 3RF phentermine [Adipex-P] 37.5 mg tablet 37.5 mg PO DAILY Qty: 30 0RF Rx Instructions: must administer 30 minutes before or 1-2 hours after breakfast valacyclovir [Valtrex] 500 mg tablet 500 mg PO DAILY 30 Days Qty: 30 11RF Referrals Follow up/Referrals: Holland Schmitt MD [Primary Care Provider] - See instructions Activity Restrictions/Add. Instructions Additional Instructions/Restrictions: Drink plenty of fluids. Take tylenol or ibuprofen for pain or fever. Take the medications as directed. Follow up with your regular doctor. GO TO THE ER FOR ANY WORSENING SYMPTOMS Clinical Impressions Clinical Impression: Gastroenteritis Stand Alone Forms Stand Alone Forms: Work/School Release Instructions Patient Instructions: DI for Viral Gastroenteritis -- Adult, Ondansetron Discharge ED Provider: Freddy Acuna [facility] General Stated complaint: vomiting, diarrhea, weakness Mode of Arrival: Ambulatory Source of Information: Patient Limitations: No Limitations Time Seen by Provider: 05/24/23 14:48 Description of Symptoms (Recalled from Triage Doc. by RN): Patient complaint of vomiting, diarrhea, weakness, and fatigue since 6pm last night. HEENT Symptoms (Recalled from RN notes): No Resp Symptoms (Recalled from RN notes): No Skin Symptoms (Recalled from RN notes): No MS Symptoms (Recalled from RN notes): No Functional Status (Recalled from RN notes): wnl History of Present Illness Provider Complaint: She states that she has had n/v/d since yesterday evening. She denies abdominal pain. Related Data Previous Rx's Medication Instructions Recorded valacyclovir 500 mg tablet 500 mg PO DAILY 30 days #30 tabs 03/15/23 (Valtrex) metformin 500 mg tablet 500 mg PO BID #180 tabs 04/23/23 phentermine 37.5 mg tablet 37.5 mg PO DAILY #30 tabs 04/23/23 (Adipex-P) ondansetron 4 mg disintegrating 4 mg PO Q8H PRN Nausea #12 tabs 05/24/23 tablet Allergies Allergy/AdvReac Type Severity Reaction Status Date / Time No Known Allergies Allergy Verified 04/23/23 15:02 Worker's Comp Is this a Worker's Comp case?: No [facility] Disclaimer: The information contained in this section may have been updated after the patient was seen, as this information can be updated by other users. Medical History Genital herpes simplex Surgical History History of delivery Social History Smoking Status: Former smoker alcohol intake: current substance use type: denies use current occupational status: employed Travel in the last 8 weeks: None household members: family caffeine: Yes ROS Obtained: Yes All systems reviewed & no additional complaints except as documented Constitutional Constitutional: Denies chills, Denies fever(s) and Reports poor appetite ENT Ears, Nose, Mouth, and Throat: Denies dizziness and Denies sore throat Cardiovascular Cardiovascular: Denies dyspnea Respiratory Respiratory: Denies chest congestion, Denies cough and Denies dyspnea Gastrointestinal Gastrointestingal: Reports as per HPI; Denies abdominal pain Genitourinary Female Genitourinary: Denies difficulty voiding, Denies dysuria, Denies hematuria, Denies urinary frequency, Denies urinary incontinence, Denies urinary hesitancy and Denies urinary urgency Musculoskeletal Musculoskeletal: Denies arthralgias Integumentary/Breasts Skin/Breast: Denies rash Neurologic Neurologic: Denies dizziness Physical Exam General General appearance: alert and in no apparent distres
[2023-05-24 15:00] VITALS: BP 124/92; PULSE 92; RESP 16; TEMP 36.7; O2SAT 100
== END 2023-05-24 15:02 | disposition home or self-care (01) ==
PROVIDERS: Emergency Provider Nurse Practitioner Family; PCP Internal Medicine
DX: K52.9 Noninfective gastroenteritis and colitis, unspecified (principal); R11.2 Nausea with vomiting, unspecified; R53.1 Weakness; Z87.891 Personal history of nicotine dependence
CPT/HCPCS: 99212; 99214; G0463

== ENCOUNTER → 2023-06-16 16:26 | Outpatient (CLI) | payer OTHER, SELFPAY ==
[2023-06-16 16:38] LABS: Adenovirus F 40/41, stool Not Detected (NotDetected); Astrovirus Not Detected (NotDetected); Campylobacter Not Detected (NotDetected); Clostridium Difficile A/B, PCR Not Detected (NotDetected); Cryptosporidium Not Detected (NotDetected); Cyclospora Cayetanesis Not Detected (NotDetected); Entamoeba histolytica Not Detected (NotDetected); Enteroaggregative E coli Not Detected (NotDetected); Enteropathogenic E coli Not Detected (NotDetected); Enterotoxigenic E coli Not Detected (NotDetected); Giardia lamblia Not Detected (NotDetected); Norovirus Not Detected (NotDetected); Plesimonas Shigalloides, PCR Not Detected (NotDetected); Rotavirus A Not Detected (NotDetected); Salmonella, PCR Not Detected (NotDetected); Sapovirus Not Detected (NotDetected); Shiga-like toxin E coli Not Detected (NotDetected); Shigella Enterovasive E coli Not Detected (NotDetected); Vibrio Cholerae Not Detected (NotDetected); Vibrio, PCR Not Detected (NotDetected); Yersinia Entercolitica, PCR Not Detected (NotDetected)
== END ==
PROVIDERS: PCP Internal Medicine; Visit Provider Internal Medicine
DX: K52.9 Noninfective gastroenteritis and colitis, unspecified (principal)
CPT/HCPCS: 87507

== ENCOUNTER 2023-06-18 10:42 | Emergency (ER) | payer OTHER, SELFPAY ==
[2023-06-18 10:53] VITALS: BP 175/97; PULSE 76; RESP 16; TEMP 36.8; O2SAT 100; BMI 30.2
--- NOTE | 2023-06-18 11:09 | HMH.EDGENADL ---
Discharge Plan Disposition Patient Disposition: Home, Self-Care Prescriptions Prescriptions: New ondansetron 4 mg tablet,disintegrating 4 mg PO Q6H PRN (Reason: nausea and vomiting) 5 Days Qty: 20 0RF No Action metformin 500 mg tablet 500 mg PO BID Qty: 180 3RF phentermine [Adipex-P] 37.5 mg tablet 37.5 mg PO DAILY Qty: 30 0RF Rx Instructions: must administer 30 minutes before or 1-2 hours after breakfast valacyclovir [Valtrex] 500 mg tablet 500 mg PO DAILY 30 Days Qty: 30 11RF ondansetron 4 mg Tablet,Disintegrating 4 mg PO Q8H PRN (Reason: Nausea) Qty: 12 0RF Referrals Follow up/Referrals: Holland Schmitt MD [Primary Care Provider] - See instructions Activity Restrictions/Add. Instructions Additional Instructions/Restrictions: No specific emergent medical condition was diagnosed today. Please return with any refractory symptoms high fever or other concerns. Clinical Impressions Clinical Impression: Acute epigastric pain, Nausea vomiting and diarrhea, Alcohol abuse Instructions Patient Instructions: DI for Acute Abdominal Pain Discharge ED Provider: Juan Freed General Adult HPI General Chief complaint: Abdominal Pain Stated complaint: abdominal pain, painful to touch Time Seen by Provider: 06/18/23 10:56 Mode of Arrival: Ambulatory Source of Information: Patient Limitations: No Limitations Description of Symptoms (Recalled from ER Triage Doc. by RN): 28 yo F presents to ED with c/o abdominal pain ongoing for the past 4 days. pt reports nausea, vomitting, diarrhea last week. pt reports tenderness with palpation. pts also reports to daily drinking (7+ beers, 2-3 fireball shots). History of Present Illness HPI narrative: Patient is a 28-year-old female who is dependent upon alcohol drinking 7 beers and multiple fireball's daily for what she describes as per sleep, presents today with nausea vomiting diarrhea and some epigastric discomfort radiating through to her back. She states this began 2 days ago. Nonbloody nonbilious emesis no melena or hematochezia no hematemesis. No fevers or chills subjectively. Does not localize the pain to one side or another. She has had a history of C-sections but no other surgical procedures in the past in her abdomen. Denies any urinary symptoms burning frequency urgency or dysuria. Also states she has had some chest tightness associated with this over the last few days. No exertional chest pain diaphoresis shortness of breath history of DVT or PE no hemoptysis. Related Data Previous Rx's Medication Instructions Recorded valacyclovir 500 mg tablet 500 mg PO DAILY 30 days #30 tabs 03/15/23 (Valtrex) metformin 500 mg tablet 500 mg PO BID #180 tabs 04/23/23 phentermine 37.5 mg tablet 37.5 mg PO DAILY #30 tabs 04/23/23 (Adipex-P) ondansetron 4 mg disintegrating 4 mg PO Q8H PRN Nausea #12 tabs 05/24/23 tablet ondansetron 4 mg disintegrating 4 mg PO Q6H PRN nausea and 06/18/23 tablet vomiting 5 days #20 tabs Allergies Allergy/AdvReac Type Severity Reaction Status Date / Time No Known Allergies Allergy Verified 04/23/23 15:02 [facility] Disclaimer: The information contained in this section may have been updated after the patient was seen, as this information can be updated by other users. Medical History Genital herpes simplex Surgical History History of delivery Social History Smoking Status: Current every day smoker tobacco type: cigarettes packs per day: 1 alcohol intake: current substance use type: denies use current occupational status: employed Travel in the last 8 weeks: None household members: family caffeine: Yes ROS Obtained: Yes All systems reviewed & no additional complaints except as documented Physical Exam
--- NOTE | 2023-06-18 11:17 | ECG_ITS ---
APPROVED REPORT Exam: Resting ECG HR:65 bpm ECG Measurements Heart Rate 65 AXES MI 173 P 35 QRSd 89 QRS 77 QT 399 T 52 QTc 411 Conclusion SINUS RHYTHM NORMAL ECG UNCONFIRMED REPORT Electronically signed by : Glenn Justin MD 06/18/2023 17:40:26
[2023-06-18 11:34] LABS: Microscopic, Urine URINE MICROSCOPIC (MICROSCOPIC)
[2023-06-18 11:39] LABS: Basophils % 0.5 % (0.1-2.0); Eosinophils # 0.2 K/mm3 (0.0-0.4); Eosinophils % 2.6 % (0.1-12.0); Hematocrit 37.7 % (37.0-47.0); Hemoglobin 11.9 g/dL (12.2-16.2); Lymphocytes # 2.3 K/mm3 (0.7-4.5); Lymphocytes % 33.3 % (10-50); Mean Corpuscular HGB Conc 31.6 g/dL (31.8-35.4); Mean Corpuscular Volume 82.4 fl (81-99); Mean Platelet Volume 8.1 fl (7.4-10.4); Monocytes # 0.3 K/mm3 (0.1-1.0); Monocytes % 4.7 % (1.7-9.3); Neutrophils # 4.2 K/mm3 (1.8-7.8); Neutrophils % 58.9 % (37.0-80.0); Platelet Count 309 K/mm3 (142-424); Red Blood Count 4.57 M/mm3 (4.20-5.40); Red Cell Distribution Width 15.2 % (11.5-17.5); White Blood Count 7.1 K/mm3 (4.8-10.8)
[2023-06-18 11:40] LABS: Chloride 103 mmol/L (98-107); Potassium 3.9 mmoL/L (3.5-5.1); Sodium 137 mmol/L (136-145)
[2023-06-18 11:42] LABS: Appearance,Urine CLEAR (Clear); Bilirubin,Urine Negative (Negative); Blood Urea Nitrogen 14 mg/dl (7-17); Blood, Urine Negative (Negative); Color,Urine YELLOW (Yellow); Creatinine Clearance Estimated 138 mL/min (50-200); Estimated Glomerular Filt Rate 100 ml/min (>60); GFR (African American) 121 ML/MIN (>60); Glucose,Urine (UA) Negative (Negative); Ketones,Urine Negative (Negative); Leukocyte Esterase,Urine Negative (Negative); Nitrate,Urine Negative (Negative); Protein,Urine Negative (Negative); Specific Gravity, Urine >= 1.030 (1.005-1.030); Urobilinogen,Urine 0.2 EU/dl (0.2)
[2023-06-18 11:43] LABS: Alanine Aminotransferase 28 U/L (12-78); Albumin Level 4.4 g/dl (3.5-5.0); Albumin/Globulin Ratio 1.3 (1.1-1.8); Alkaline Phosphatase 92 U/L (38-126); Anion Gap 11.9 mEq/L (5-15); Aspartate Amino Transferase 42 U/L (14-36); Bilirubin,Total 0.3 mg/dl (0.2-1.3); Calcium 9.5 mg/dl (8.4-10.2); Carbon Dioxide 26 mmol/L (22.0-30.0); Globulin 3.4 g/dL (1.3-3.2); Glucose 106 mg/dl (74-100); Lipase 113 U/L (23-300); Total Protein,Serum 7.8 g/dl (6.3-8.2)
[2023-06-18 11:45] LABS: INR 0.93 (0.9-1.1); Prothrombin Time 10.1 seconds (10.1-12.5)
[2023-06-18 12:02] LABS: Troponin I < 0.01 ng/ml (0.00-0.034)
[2023-06-18 12:13] LABS: Amorphous Sediment,Urine 4+ /lpf; Bacteria,Urine Trace /lpf; Squamous Epithelial Cell,Urine Occasional #/hpf (0-5); WBC,Urine Occasional #/hpf (0-3)
[2023-06-18 12:40] VITALS: BP 175/97; PULSE 76; RESP 16; TEMP 36.8
== END 2023-06-18 12:41 | disposition home or self-care (01) ==
PROVIDERS: Emergency Provider Student in an Organized Health Care Education/Training Program; PCP Internal Medicine
DX: R10.13 Epigastric pain (principal); R11.2 Nausea with vomiting, unspecified; R19.7 Diarrhea, unspecified; F10.10 Alcohol abuse, uncomplicated; F17.210 Nicotine dependence, cigarettes, uncomplicated
CPT/HCPCS: 80053; 81001; 83690; 84484; 85025; 85610; 93005; 96361; 96374; 96375; 99285; J2405

== ENCOUNTER 2023-07-09 16:16 | Emergency (ER) | payer OTHER, SELFPAY ==
[2023-07-09 16:17] VITALS: BP 140/88; PULSE 73; RESP 18; TEMP 36.8; O2SAT 98; BMI 30.8
--- NOTE | 2023-07-09 16:44 | EXP.UTC ---
Discharge Plan Disposition Patient Disposition: Home, Self-Care Condition: Good Prescriptions Prescriptions: New amoxicillin [amoxicillin] 875 mg tablet 875 mg PO Q12H Qty: 20 0RF rvfjvqunflkrgbu-avliolyuv-TJ [Bromfed DM] 2-30-10 mg/5 mL Syrup 5 ml PO Q6H PRN (Reason: Cough) Qty: 240 0RF methylprednisolone 4 mg Tablets,Dose Pack 4 mg PO DIRECTED Qty: 21 0RF No Action metformin 500 mg tablet 500 mg PO BID Qty: 180 3RF phentermine [Adipex-P] 37.5 mg tablet 37.5 mg PO DAILY Qty: 30 0RF Rx Instructions: must administer 30 minutes before or 1-2 hours after breakfast valacyclovir [Valtrex] 500 mg tablet 500 mg PO DAILY 30 Days Qty: 30 11RF ondansetron 4 mg Tablet,Disintegrating 4 mg PO Q8H PRN (Reason: Nausea) Qty: 12 0RF ondansetron 4 mg tablet,disintegrating 4 mg PO Q6H PRN (Reason: nausea and vomiting) 5 Days Qty: 20 0RF Referrals Follow up/Referrals: Holland Schmitt MD [Primary Care Provider] - See instructions Activity Restrictions/Add. Instructions Additional Instructions/Restrictions: Drink plenty of fluids. Take tylenol or ibuprofen for pain or fever. Take the medications as directed. Follow up with your regular doctor. GO TO THE ER FOR ANY WORSENING SYMPTOMS Clinical Impressions Clinical Impression: Sinusitis Stand Alone Forms Stand Alone Forms: Work/School Release Instructions Patient Instructions: Sinusitis, DI for Sinusitis Discharge ED Provider: Freddy Acuna [facility] General Stated complaint: covid exposure Time Seen by Provider: 07/09/23 16:44 History of Present Illness Provider Complaint: She states that for the past 2 days she has had worsening sinus congestion and bilateral ear pain. Related Data Previous Rx's Medication Instructions Recorded valacyclovir 500 mg tablet 500 mg PO DAILY 30 days #30 tabs 03/15/23 (Valtrex) metformin 500 mg tablet 500 mg PO BID #180 tabs 04/23/23 phentermine 37.5 mg tablet 37.5 mg PO DAILY #30 tabs 04/23/23 (Adipex-P) ondansetron 4 mg disintegrating 4 mg PO Q8H PRN Nausea #12 tabs 05/24/23 tablet ondansetron 4 mg disintegrating 4 mg PO Q6H PRN nausea and 06/18/23 tablet vomiting 5 days #20 tabs amoxicillin 875 mg tablet 875 mg PO Q12H #20 tabs 07/09/23 zlamatrrcduoety-slavbjwvyoicfqt-IQ 5 ml PO Q6H PRN Cough #240 mL 07/09/23 2 mg-30 mg-10 mg/5 mL oral syrup (Bromfed DM) methylprednisolone 4 mg tablets in 4 mg PO DIRECTED #21 tabs 07/09/23 a dose pack Allergies Allergy/AdvReac Type Severity Reaction Status Date / Time No Known Allergies Allergy Verified 04/23/23 15:02 [facility] Disclaimer: The information contained in this section may have been updated after the patient was seen, as this information can be updated by other users. Medical History Genital herpes simplex Surgical History History of delivery Social History Smoking Status: Current every day smoker tobacco type: cigarettes packs per day: 1 alcohol intake: current substance use type: denies use current occupational status: employed Travel in the last 8 weeks: None household members: family caffeine: Yes ROS Obtained: Yes All systems reviewed & no additional complaints except as documented Constitutional Constitutional: Reports poor appetite Eyes Eyes: Reports system reviewed and no additional complaints, except as documented ENT Ears, Nose, Mouth, and Throat: Reports as per HPI Cardiovascular Cardiovascular: Reports system reviewed and no additional complaints, except as documented and Denies chest pain Respiratory Respiratory: Denies shortness of breath, Denies chest congestion, Reports cough, Denies stridor and Denies wheezing Gastrointestinal Gastrointestingal: Reports system reviewed and no ad
[2023-07-09 17:02] VITALS: BP 140/88; PULSE 73; RESP 18; TEMP 36.8; O2SAT 98
== END 2023-07-09 17:04 | disposition home or self-care (01) ==
PROVIDERS: Emergency Provider Nurse Practitioner Family; PCP Internal Medicine
DX: J01.90 Acute sinusitis, unspecified (principal); F17.210 Nicotine dependence, cigarettes, uncomplicated
CPT/HCPCS: 99212; 99214; G0463

== ENCOUNTER 2023-10-25 16:04 | Emergency (ER) | payer OTHER, SELFPAY ==
[2023-10-25 16:20] VITALS: BP 151/90; PULSE 62; RESP 18; TEMP 36.8; O2SAT 100; BMI 30.2
--- NOTE | 2023-10-25 16:30 | XR_ITS ---
PROCEDURE INFORMATION: Exam: XR Left Ankle Exam date and time: 10/25/2023 4:46 PM Age: 28 years old Clinical indication: Injury or trauma; Other: Injured while intoxicated and wrestling. Blunt trauma; Patient HX: Patient was intoxicated and wrestling a friend when she injured her left ankle and left foot. ; Additional info: Pain TECHNIQUE: Imaging protocol: Radiologic exam of the left ankle. Views: 3 or more views. COMPARISON: CR XR FOOT LT MIN 3V 10/25/2023 4:46 PM FINDINGS: Bones/joints: Normal. Soft tissues: Mild lateral soft tissue swelling. IMPRESSION: Mild lateral soft tissue swelling. No fracture.
--- NOTE | 2023-10-25 16:30 | XR_ITS ---
PROCEDURE INFORMATION: Exam: XR Left Foot Exam date and time: 10/25/2023 4:46 PM Age: 28 years old Clinical indication: Injury or trauma; Other: Wrestling while intoxicated per patient. Blunt trauma; Patient HX: Patient was intoxicated and wrestling when she injured her left foot and left ankle. ; Additional info: Pain TECHNIQUE: Imaging protocol: Radiologic exam of the left foot. Views: 3 or more views. COMPARISON: CR XR ANKLE LT MIN 3V 10/25/2023 4:46 PM FINDINGS: Bones/joints: Normal. Soft tissues: Normal. IMPRESSION: No acute findings.
--- NOTE | 2023-10-25 16:36 | EXP.UTC ---
Discharge Plan Disposition Patient Disposition: Home, Self-Care Condition: Good Prescriptions Prescriptions: New ibuprofen [IBU] 800 mg tablet 800 mg PO Q8HP PRN (Reason: Moderate Pain) Qty: 30 0RF No Action metformin 500 mg tablet 500 mg PO BID Qty: 180 3RF phentermine [Adipex-P] 37.5 mg tablet 37.5 mg PO DAILY Qty: 30 0RF Rx Instructions: must administer 30 minutes before or 1-2 hours after breakfast valacyclovir [Valtrex] 500 mg tablet 500 mg PO DAILY 30 Days Qty: 30 11RF bisoprolol-hydrochlorothiazide 5-6.25 mg tablet 1 tab PO DAILY Patient Comments: TAKE ONE TABLET BY MOUTH EVERY DAY FOR BLOOD PRESSURE famotidine 20 mg tablet 20 mg PO BID Patient Comments: TAKE ONE TABLET BY MOUTH TWICE DAILY hydroxyzine HCl 25 mg tablet See Rx Instructions .ROUTE .COMPLEX Patient Comments: TAKE 1 OR 2 TABLETS BY MOUTH AT BEDTIME NEEDED FOR ANXIETY OR SLEEP Rx Instructions: TAKE 1 OR 2 TABLETS BY MOUTH AT BEDTIME NEEDED FOR ANXIETY OR SLEEP Referrals Follow up/Referrals: Holland Schmitt MD [Primary Care Provider] - See instructions Gail Salguero DPM [Staff Physician] - See instructions Activity Restrictions/Add. Instructions Additional Instructions/Restrictions: Rest the extremity, apply ice for 15 minutes as tolerated three or four times per day, Wear the anne wrap for compression, Elevate the extremity as tolerated while you are resting. Take ibuprofen for pain. I sent in a prescription to your pharmacy. Follow up with Dr. Salguero (podiatry) if you continue to have symptoms. I put in a referral but you need to call her office and schedule an appointment. Follow up with your regular doctor. GO TO THE ER FOR ANY WORSENING SYMPTOMS Clinical Impressions Clinical Impression: Left ankle sprain Stand Alone Forms Stand Alone Forms: Work/School Release Instructions Patient Instructions: Ankle Sprain, DI for Ankle Sprain Discharge ED Provider: Freddy Acuna [facility] General Stated complaint: AO 10/23 possible left ankle sprain Mode of Arrival: Ambulatory Source of Information: Patient Limitations: No Limitations Time Seen by Provider: 10/25/23 16:36 Description of Symptoms (Recalled from Triage Doc. by RN): Pt stated that she hurt it wednesday. She feels like the left ankle/foot is sprained. It has limited ROM and swollen. HEENT Symptoms (Recalled from RN notes): No Resp Symptoms (Recalled from RN notes): No Skin Symptoms (Recalled from RN notes): No MS Symptoms (Recalled from RN notes): Yes Functional Status (Recalled from RN notes): n/a History of Present Illness Provider Complaint: She states that 2 days ago she twisted her left ankle. Since then she has had left ankle pain and swelling. She denies any other injury. She states that bearing weight and walking on the foot makes her pain worse. Related Data Home Medications Medication Instructions Recorded Confirmed bisoprolol 5 1 tab PO DAILY 10/25/23 10/25/23 mg-hydrochlorothiazide 6.25 mg tablet famotidine 20 mg tablet 20 mg PO BID 10/25/23 10/25/23 hydroxyzine HCl 25 mg tablet See Rx Instructions .Route .COMPLEX 10/25/23 10/25/23 Previous Rx's Medication Instructions Recorded valacyclovir 500 mg tablet 500 mg PO DAILY 30 days #30 tabs 03/15/23 (Valtrex) metformin 500 mg tablet 500 mg PO BID #180 tabs 04/23/23 phentermine 37.5 mg tablet 37.5 mg PO DAILY #30 tabs 04/23/23 (Adipex-P) ibuprofen 800 mg tablet (IBU) 800 mg PO Q8HP PRN Moderate Pain 10/25/23 #30 tabs Allergies Allergy/AdvReac Type Severity Reaction Status Date / Time No Known Allergies Allergy Verified 10/25/23 16:35 Worker's Comp Is this a Worker's Comp case?: No [facility] Disclaimer: The information contained in this section may have been updated after the patient was seen, as this information can be updated by other users. Medical History (Reviewed 04/23/23 @ 15:10 by Marilu
[2023-10-25 16:42] LABS: UTC Pregnancy Test, Urine Negative (Negative)
[2023-10-25 17:35] VITALS: BP 151/90; PULSE 62; RESP 18; TEMP 36.8; O2SAT 100
== END 2023-10-25 17:35 | disposition home or self-care (01) ==
PROVIDERS: Emergency Provider Nurse Practitioner Family; PCP Internal Medicine
DX: M25.572 Pain in left ankle and joints of left foot (principal); S93.402A Sprain of unspecified ligament of left ankle, initial encounter; F17.210 Nicotine dependence, cigarettes, uncomplicated; X50.1XXA Overexertion from prolonged static or awkward postures, initial encounter
CPT/HCPCS: 73610; 73630; 81025; 99212; 99214; G0463

== ENCOUNTER 2023-11-17 12:36 | Outpatient (CLI) | payer MEDICARE, SELFPAY ==
[2023-11-17 14:11] LABS: HCG Qualitative, Serum Negative (Negative)
== END 2023-11-17 23:59 ==
LOC: LAB 12:38
PROVIDERS: PCP Internal Medicine; Visit Provider Internal Medicine
DX: Z32.00 Encounter for pregnancy test, result unknown (principal)
CPT/HCPCS: 36415; 84703

== ENCOUNTER 2024-05-03 13:07 | Emergency (ER) | payer OTHER, SELFPAY ==
[2024-05-03 13:10] VITALS: BP 182/124; PULSE 96; RESP 18; TEMP 37.2; O2SAT 100; BMI 31.2
--- NOTE | 2024-05-03 13:23 | ECG_ITS ---
APPROVED REPORT Exam: Resting ECG HR:80 bpm ECG Measurements Heart Rate 80 AXES IL 159 P 15 QRSd 101 QRS 74 QT 364 T 50 QTc 399 Conclusion SINUS RHYTHM NORMAL ECG Electronically signed by : RAMIREZ SINGLETON, 05/03/2024 15:16:22
[2024-05-03 13:24] VITALS: BMI 31.2
[2024-05-03 13:33] LABS: Basophils # 0.1 K/mm3 (0-0.2); Basophils % 0.9 % (0.1-2.0); Eosinophils # 0.1 K/mm3 (0.0-0.4); Eosinophils % 1.2 % (0.1-12.0); Hematocrit 38.8 % (37.0-47.0); Hemoglobin 12.6 g/dL (12.2-16.2); Lymphocytes # 2.5 K/mm3 (0.7-4.5); Lymphocytes % 33.3 % (10-50); Mean Corpuscular HGB Conc 32.5 g/dL (31.8-35.4); Mean Corpuscular Hemoglobin 28.9 pg (27.0-31.2); Mean Corpuscular Volume 88.9 fl (81-99); Monocytes # 0.3 K/mm3 (0.1-1.0); Monocytes % 4.2 % (1.7-9.3); Neutrophils # 4.6 K/mm3 (1.8-7.8); Neutrophils % 60.4 % (37.0-80.0); Platelet Count 318 K/mm3 (142-424); Red Blood Count 4.37 M/mm3 (4.20-5.40); Red Cell Distribution Width 14.6 % (11.5-17.5); White Blood Count 7.6 K/mm3 (4.8-10.8)
[2024-05-03 13:42] LABS: Alanine Aminotransferase 31 U/L (12-78); Albumin Level 4.8 g/dl (3.5-5.0); Albumin/Globulin Ratio 1.3 (1.1-1.8); Alkaline Phosphatase 87 U/L (38-126); Anion Gap 14.9 mEq/L (5-15); Aspartate Amino Transferase 44 U/L (14-36); Bilirubin,Total 0.5 mg/dl (0.2-1.3); Blood Urea Nitrogen 16 mg/dl (7-17); Calcium 9.8 mg/dl (8.4-10.2); Carbon Dioxide 26 mmol/L (22.0-30.0); Chloride 104 mmol/L (98-107); Creatinine Clearance Estimated 121 mL/min (50-200); Estimated Glomerular Filt Rate 86 ml/min (>60); GFR (African American) 104 ML/MIN (>60); Globulin 3.6 g/dL (1.3-3.2); Glucose 99 mg/dl (74-100); Potassium 3.9 mmoL/L (3.5-5.1); Sodium 141 mmol/L (136-145); Total Protein,Serum 8.4 g/dl (6.3-8.2)
[2024-05-03 13:58] LABS: Troponin I < 0.01 ng/ml (0.00-0.034)
--- NOTE | 2024-05-03 13:58 | XR_ITS ---
FINAL REPORT CLINICAL HISTORY: intermittent cp, right side pain patient uses a vape COMPARISON: None FINDINGS: No acute pulmonary opacity is present. There is no evidence of effusion or pneumothorax. Mediastinum is unremarkable. Heart size is normal. IMPRESSION: No acute abnormality. Reviewed, Interpreted and Dictated by Wesly Wray MD Transcribed by Gris Goncalves Authenticated and [facility]
--- NOTE | 2024-05-03 13:58 | US_ITS ---
FINAL REPORT TECHNIQUE: Multiple transverse and longitudinal images CLINICAL HISTORY: RUQ pain FINDINGS: The gallbladder shows no wall thickening, distention or stone disease. No biliary ductal dilatation is appreciated. No fluid collections are seen. Limited portions of the right liver are unremarkable. Limited portions of the right kidney are unremarkable. IMPRESSION: 1. No evidence of cholelithiasis 2. No evidence of biliary obstruction Reviewed, Interpreted and Dictated by Wesly Wray MD Transcribed by Sania Reyna Authenticated and [facility]
[2024-05-03 14:00] VITALS: BP 156/105; PULSE 79; O2SAT 99
--- NOTE | 2024-05-03 14:00 | HMH.EDCP ---
Discharge Plan Disposition Patient Disposition: Home, Self-Care Chief Complaint: PAIN Prescriptions Prescriptions: No Action metformin 500 mg tablet 500 mg PO BID Qty: 180 3RF phentermine [Adipex-P] 37.5 mg tablet 37.5 mg PO DAILY Qty: 30 0RF Rx Instructions: must administer 30 minutes before or 1-2 hours after breakfast valacyclovir [Valtrex] 500 mg tablet 500 mg PO DAILY 30 Days Qty: 30 11RF bisoprolol-hydrochlorothiazide 5-6.25 mg tablet 1 tab PO DAILY Patient Comments: TAKE ONE TABLET BY MOUTH EVERY DAY FOR BLOOD PRESSURE famotidine 20 mg tablet 20 mg PO BID Patient Comments: TAKE ONE TABLET BY MOUTH TWICE DAILY hydroxyzine HCl 25 mg tablet See Rx Instructions .ROUTE .COMPLEX Patient Comments: TAKE 1 OR 2 TABLETS BY MOUTH AT BEDTIME NEEDED FOR ANXIETY OR SLEEP Rx Instructions: TAKE 1 OR 2 TABLETS BY MOUTH AT BEDTIME NEEDED FOR ANXIETY OR SLEEP ibuprofen [IBU] 800 mg tablet 800 mg PO Q8HP PRN (Reason: Moderate Pain) Qty: 30 0RF Referrals Follow up/Referrals: Holland Schmitt MD [Primary Care Provider] - See instructions Activity Restrictions/Add. Instructions Additional Instructions/Restrictions: At this time it was felt you are safe to be discharged home. If new or worsening symptoms please do not hesitate to return the emergency department. Clinical Impressions Clinical Impression: Abdominal pain, RUQ, Chest pain Discharge ED Provider: Jonas Macedo General Chief Complaint: PAIN Stated Complaint: pain in right side, chest pain Time Seen by Provider: 05/03/24 13:40 History of Present Illness HPI narrative: Patient is a 28-year-old female with past medical history of alcohol abuse who presents emergency department for evaluation of right upper quadrant abdominal pain and chest pain. Patient has chronic left lower quadrant abdominal pain and changes in her stool habits which is pending outpatient colonoscopy. That is at baseline. With respect right upper quadrant abdominal pain it is onset was 5 days ago, worse with p.o. intake, moderate to severe in intensity, worse with standing up straight. She has right inferior thoracic chest pain, no midline chest pain. Last menstrual cycle approximately a week ago. No ongoing vaginal bleeding, no vaginal discharge. No other acute complaints at this time. Related Data Home Medications Medication Instructions Recorded Confirmed bisoprolol 5 1 tab PO DAILY 10/25/23 10/25/23 mg-hydrochlorothiazide 6.25 mg tablet famotidine 20 mg tablet 20 mg PO BID 10/25/23 10/25/23 hydroxyzine HCl 25 mg tablet See Rx Instructions .Route .COMPLEX 10/25/23 10/25/23 Previous Rx's Medication Instructions Recorded valacyclovir 500 mg tablet 500 mg PO DAILY 30 days #30 tabs 03/15/23 (Valtrex) metformin 500 mg tablet 500 mg PO BID #180 tabs 04/23/23 phentermine 37.5 mg tablet 37.5 mg PO DAILY #30 tabs 04/23/23 (Adipex-P) ibuprofen 800 mg tablet (IBU) 800 mg PO Q8HP PRN Moderate Pain 10/25/23 #30 tabs Allergies Allergy/AdvReac Type Severity Reaction Status Date / Time No Known Allergies Allergy Verified 10/25/23 16:35 [facility] Disclaimer: The information contained in this section may have been updated after the patient was seen, as this information can be updated by other users. Medical History Genital herpes simplex Surgical History History of delivery Social History Smoking Status: Never smoker alcohol intake: current alcohol intake frequency: a few times a month substance use type: denies use current occupational status: employed Travel in the last 8 weeks: None household members: family caffeine: Yes ROS Obtained: Yes Systems reviewed as appropriate & no additional complaints except as documented Physical Exam General General appearance: alert and in no apparent distress Head Head exam: atraumatic and normocephalic Eye Eye exam: Present PERRL and EOMI ENT ENT exam: Present mucous membranes moist Neck Neck exam: Present normal inspection Chest Chest inspection: Present normal inspection and symmetric chest wall rise Respiratory Respiratory exam: Present normal lung sounds bilaterally; Absent respiratory distress Cardiovascular Cardiovascular exam: Present regular rate and normal rhythm Abdominal Exam Abdominal exam: Present soft and tenderness (Right upper quadrant); Absent guarding or rebound Extremities Exam Extremities exam: Present normal inspection Neurological Exam Neurological exam: Present alert and CN II-XII intact; Absent motor sensory deficit Psychiatric Psychiatric exam: Present normal affect Skin Skin exam: Present warm and dry HEART Score HEART Score HEART Score assessment performed?: Yes History (anamnesis): Slightly suspicious ECG: Normal Age: <45 years Risk factors: No known risk factors Troponin: </= normal limit HEART Score: 0 Critical Care Critical Care Time Critical Care Time: No Medical Decision Making [place] Inquiry Pt receiving controlled substance: No Vital Signs Vital Signs: 05/03/24 13:10 05/03/24 14:00 05/03/24 15:00 Temperature 98.9 F Temperature Source Oral Pulse Rate 79 76 Pulse Rate [Left Radial] 96 H Respiratory Rate 18 Blood Pressure 156/105 H 146/86 H Blood Pressure [Right Arm] 182/124 H Blood Pressure Mean 131 106 Blood Pressure Mean [Right Arm] 143 02 Sat by Pulse Oximetry 100 99 100 Oxygen Delivery Method Room Air Lab Data Labs: Lab Results 05/03/24 13:21: WBC 7.6, RBC 4.37, Hgb 12.6, Hct 38.8, MCV 88.9, MCH 28.9, MCHC 32.5, RDW 14.6, Plt Count 318, MPV 8.0, Neut % (Auto) 60.4, Lymph % (Auto) 33.3, [place] % (Auto) 4.2, Eos % (Auto) 1.2, Baso % (Auto) 0.9, Neut # (Auto) 4.6, Lymph # (Auto) 2.5, [place] # (Auto) 0.3, Eos # (Auto) 0.1, Baso # (Auto) 0.1, Sodium 141, Potassium 3.9, Chloride 104, Carbon Dioxide 26, Anion Gap 14.9, BUN 16, Creatinine 0.80, Estimated Creat Clear 121, Estimated GFR 86, Est GFR ( Amer) 104, Glucose 99, Calcium 9.8, Total Bilirubin 0.5, AST 44 H, ALT 31, Alkaline Phosphatase 87, Troponin I < 0.01, Total Protein 8.4 H, Albumin 4.8, Globulin 3.6 H, Albumin/Globulin Ratio 1.3, Lipase 123, Serum HCG, Qual Negative 05/03/24 14:00: Urine Color Yellow, Urine Appearance Clear, Urine pH 6.0, Ur Specific [place] >= 1.030, Urine Protein Negative, Urine Glucose (UA) Negative, Urine Ketones Negative, Urine Blood Negative, Urine Nitrate Negative, Urine Bilirubin Negative, Urine Urobilinogen 0.2, Ur Leukocyte Esterase Negative, Urine RBC None, Urine WBC None, Ur Squamous Epith Cells Occasional, Urine Bacteria None 05/03/24 13:21 05/03/24 13:21 Response Orders (Tests/Meds): ED MEDICATIONS Generic Name Dose Route Start Last Admin Trade Name Chente PRN Reason Stop Dose Admin Sodium Chloride 10 ml 05/03/24 13:24 Sodium Chloride 0.9% 10ml Flush Syringe IV 06/02/24 13:23 NEEDED PRN Maintain IV Site Discontinued Medications Generic Name Dose Route Start Last Admin Trade Name Freq PRN Reason Stop Dose Admin Acetaminophen 1,000 mg 05/03/24 13:59 05/03/24 14:05 Acetaminophen 1,000mg/100ml Vial IV 05/03/24 14:00 1,000 mg ONCE ONE Administration Lactated Ringer's 1,000 mls @ 999 mls/hr 05/03/24 13:59 05/03/24 14:04 Lactated Ringer's 1000 Ml Bag IV 05/03/24 14:59 999 mls/hr .Q1H1M ONE Administration Ketorolac Tromethamine 30 mg 05/03/24 13:59 05/03/24 14:05 Ketorolac 30mg/Ml Vial IV 05/03/24 14:00 30 mg ONCE ONE Administration Ondansetron HCl 4 mg 05/03/24 13:59 05/03/24 14:05 Ondansetron 4mg/2ml Vial IV 05/03/24 14:00 4 mg ONCE ONE Administration ORDERS Category Date Time Status CXR --portable [XR chest portable] Stat Exams 05/03/24 13:58 Completed US RUQ [US abdomen limited] Stat Exams 05/03/24 13:58 Completed Complete Blood Count Auto Diff Stat Lab 05/03/24 13:21 Completed Comprehensive Metabolic Panel Stat Lab 05/03/24 13:21 Completed HCG Qualitative, Serum Stat Lab 05/03/24 13:21 Completed Lipase Stat Lab 05/03/24 13:21 Completed Troponin I Q3H Lab 05/03/24 16:30 Ordered Troponin I Q3H Lab 05/03/24 19:30 Ordered Troponin I Stat Lab 05/03/24 13:21 Completed UA [Urinalysis and Microscopic] Stat Lab 05/03/24 14:00 Completed ECG Data Tracing #1: ECG Narrative: Independently interpreted by me rate is 80, rhythm is regular, axis is normal, no ST elevation in anatomical contiguous leads, QTc 399. MDM Narrative Medical Decision Narrative: In summary patient is a 28-year-old female with past medical history described above presents emergency department for evaluation of abdominal pain, right inferior thoracic chest pain. Patient is hemodynamically stable nontoxic-appearing upon arrival, afebrile. Differential diagnosis includes cholecystitis, symptomatic cholelithiasis, atypical ACS, among others. No current concern for pulmonary embolism as patient is not shortness of breath and is tender at the site of her pain, no tachycardia. PERC negative. Workup will be conducted with hematologic labs, chest x-ray, EKG, troponin, urinalysis, right upper quadrant ultrasound. Initial inventions include multimodal pain control, crystalloid bolus, Zofran. Initial workup reviewed by me, hematologic labs are nonactionable, no leukocytosis or critical electrolyte abnormality, no NICKIE. Initial troponin undetectably low. Urinalysis interpreted by me and not consistent with infection, hCG negative lipase normal. Ultrasound shows no evidence of cholelithiasis or biliary obstruction. Chest x-ray shows no acute abnormality. Upon repeat evaluation patient was well-appearing. She may benefit from a HIDA scan on outpatient basis and she will follow-up with her family doctor for continued evaluation.
[2024-05-03] MEDS: LACTATED RINGERS 1000ML 1,000 ML 999 ML IV (14:04)
[2024-05-03] MEDS: ACETAMINOPHEN 1,000MG/100ML VIAL 1000 MG IV (14:05)
[2024-05-03] MEDS: KETOROLAC 30MG/ML VIAL 30 MG IV (14:05)
[2024-05-03] MEDS: ONDANSETRON 4MG/2ML VIAL 4 MG IV (14:05)
[2024-05-03 14:09] LABS: HCG Qualitative, Serum Negative (Negative)
[2024-05-03 14:10] LABS: Lipase 123 U/L (23-300)
[2024-05-03 14:19] LABS: Microscopic, Urine URINE MICROSCOPIC (MICROSCOPIC)
--- NOTE | 2024-05-03 14:26 | PC.NURSE ---
pt gone to US
[2024-05-03 14:27] LABS: Appearance,Urine CLEAR (Clear); Bilirubin,Urine Negative (Negative); Blood, Urine Negative (Negative); Color,Urine YELLOW (Yellow); Glucose,Urine (UA) Negative (Negative); Ketones,Urine Negative (Negative); Leukocyte Esterase,Urine Negative (Negative); Nitrate,Urine Negative (Negative); Protein,Urine Negative (Negative); Specific Gravity, Urine >= 1.030 (1.005-1.030); Urobilinogen,Urine 0.2 EU/dl (0.2)
[2024-05-03 14:41] LABS: Squamous Epithelial Cell,Urine Occasional #/hpf (0-5)
--- NOTE | 2024-05-03 14:43 | PC.NURSE ---
pt back in room from
[2024-05-03 15:00] VITALS: BP 146/86; PULSE 76; O2SAT 100
[2024-05-03 16:54] VITALS: BP 150/78; PULSE 90; RESP 20; TEMP 36.7; O2SAT 99
== END 2024-05-03 16:55 | disposition home or self-care (01) ==
PROVIDERS: Emergency Provider Emergency Medicine; PCP Internal Medicine
DX: R10.11 Right upper quadrant pain (principal); R07.9 Chest pain, unspecified
CPT/HCPCS: 71045; 76705; 80053; 81001; 83690; 84484; 84703; 85025; 93005; 96361; 96374; 96375; 99285; J0131; J1885; J2405; J7120

== ENCOUNTER 2024-05-12 08:29 | Day surgery (SDC) | payer OTHER, SELFPAY ==
[2024-05-11 11:17] VITALS: BMI 31.2
[2024-05-12 08:54] VITALS: BP 152/93; PULSE 85; RESP 18; TEMP 36.7; O2SAT 96
[2024-05-12 09:10] LABS: Urine Pregnancy, HCG Qual. Negative (Negative)
--- NOTE | 2024-05-12 09:22 | P.PCN_ITS ---
Procedure: Date: 05/12/24 Patient Date of :: 1995 Procedure Performed:: Colonoscopy to terminal ileum with biopsies Indications:: Patient is a 29-year-old female scheduled for colonoscopy referred by Dr. Schmitt. Patient had undergone EGD and colonoscopy by Dr. Gamino in 2012 at which time she was 18 years old. That was for history of loose stool and rectal bleeding. Colonoscopy was normal. She was scheduled for a colonoscopy. She describes stomach issues for about 5 months. She describes symptoms of intermittent constipation and diarrhea alternating. She states that she often gets sick afte r eating which is characterized by nausea or vomiting or postprandial diarrhea. No definite known family history of colon cancer or inflammatory bowel disease although she does state that she believes her grandmother had a colon resection. Exact details are unknown. . Performing Provider:: Pankaj Fernández MD Referring Provider:: Holland Schmitt MD Sedation:: MAC sedation Procedure:: Patient history was obtained and appropriate physical examination was performed. Patient's medications and allergies were reviewed. Informed consent was obtained after explaining the benefits, alternatives, and risks of the procedure including, but not limited to, bleeding, perforation, missed lesions, and adverse reaction to anesthesia medications. Patient was transported to endoscopy procedure room. Patient was connected to monitoring devices. Throughout the procedure the patient's blood pressure, pulse, and oxygen saturations were monitored continuously. Patient identification and planned procedure were verified by the staff. Patient was positioned in lateral decubitus position. Digital anorectal exam was performed. Variable stiffness Olympus colonoscope was inserted and advanced under direct visualization to the cecum. Adequacy of the colonic preparation was noted. The colonoscope was advanced a short distance into the terminal ileum. The colonoscope was then slowly withdrawn while carefully examining the color, texture, anatomy, and integrity of the mucosoa circumferentially. Within the rectum retroflexion was performed. Colonoscope was then withdrawn. . Impression: Colonic preparation was excellent. A couple biopsies were obtained of the ileocecal valve although appearing normal. As the colonoscope was withdrawn several biopsies were obtained differentiating random right and random left colon. Disease appears to normal. Within the rectum there was a possible tiny diminutive, 1 mm, hyperplastic appearing polyp removed with biopsy forceps. . Findings:: Relatively essentially normal-appearing colonoscopy other than possible diminutive hyperplastic rectal polyp Recommendations:: Follow-up colonoscopy pending pathology Would benefit from gastroenterology consultation for her symptoms as this is likely medical/functional Complications:: None immediately apparent Estimated blood obtained (mL): 1 Colonoscopy Component Colonoscopy Component Was a colonoscopy performed during today's procedure?: Yes Recommended follow up colonoscopy of at least 10 years?: No If no, follow up colonoscopy recommended in ___ years?: See above Reason for not recommending >/= 10 yr follow-up interval?: See above
[2024-05-12 09:25] VITALS: O2SAT 100
--- NOTE | 2024-05-12 09:25 | EXP.ANES.CKL ---
[facility] Disclaimer: The information contained in this section may have been updated after the patient was seen, as this information can be updated by other users. Medical History Genital herpes simplex Surgical History History of delivery Family History (Updated 05/12/24 @ 08:53 by Zulma Farris RN) Other No significant family history Social History Smoking Status: Current every day smoker tobacco type: cigarettes packs per day: 1 alcohol intake: current alcohol intake frequency: a few times a month substance use type: denies use current occupational status: employed Travel in the last 8 weeks: None household members: family caffeine: Yes [facility] Anesthesia Checklist Patient Identification Patient Identification: Verbal (Name & ) Structural Data Admitted From: Home Planned Operative Procedure/s: colonoscopy Consent for Planned Operative Procedure(s) Verified: Yes Additional verifications Anesthesia Reactions: No Hx Blood Transfusions: No Blood Transfusion Reaction: No Airway Assessment Mallampati Score:: Class II C-Spine Mobility Assessed: Yes TMJ Mobility Assessed: Yes Dentition: Good Dentition Neurological Assessment Level of Consciousness: Awake, Alert and Appropriate Anesthesia Plan Anesthesia Risk discussed: Yes Anesthesia Plan: Verified ASA Class: II Anesthesia Type: MAC
[2024-05-12 09:48] VITALS: BP 109/73; PULSE 84; RESP 16; TEMP 36.6; O2SAT 96
[2024-05-12 09:58] VITALS: BP 118/75; PULSE 88; RESP 16; O2SAT 99
[2024-05-12 10:08] VITALS: BP 116/87; PULSE 81; RESP 18; O2SAT 99
[2024-05-12 10:18] VITALS: BP 123/72; PULSE 73; RESP 18; TEMP 36.6; O2SAT 100
== END 2024-05-12 10:18 | disposition home or self-care (01) ==
PROVIDERS: PCP Internal Medicine; Visit Provider Surgery
PROC: 0DJD8ZZ Inspection of Lower Intestinal Tract, Via Natural or Artificial Opening Endoscopic (ICD-10-PCS; CPT 45380; principal; 2024-05-12 09:30)
DX: R19.7 Diarrhea, unspecified (principal); K62.1 Rectal polyp
CPT/HCPCS: 45380; 81025

== ENCOUNTER 2024-07-14 11:23 | Emergency (ER) | payer OTHER, SELFPAY ==
[2024-07-14 11:30] VITALS: BP 131/91; PULSE 63; RESP 19; TEMP 36.9; O2SAT 99; BMI 32.2
--- NOTE | 2024-07-14 11:49 | EXP.UTC ---
Discharge Plan Disposition Patient Disposition: Home, Self-Care Condition: Good Prescriptions Prescriptions: No Action No Known Home Medications Referrals Follow up/Referrals: Holland Schmitt MD [Primary Care Provider] - See instructions Activity Restrictions/Add. Instructions Additional Instructions/Restrictions: *Monitor Temp, Over the counter Motrin or Tylenol as directed/as needed Tylenol every 4 hours and Motrin every 6 hours (as long as your family doctor has told you that you can take it) for fever or pain. and straight to ER if unable to lower temp less than 101.0 after medication given *Warm salt water gargles may help to soothe the throat *Throat Lozenges? *Warm fluids like tea with honey may help to soothe the throat? *Sleep elevated *Humidifier/Vaporizer Follow up IMMEDIATELY for new or worsening symptoms or no Noticeable improvement over the next 48-72 hours. 911 for difficulty breathing or swallowing You were tested for today for COVID19 your test result should be back in the next 24 hours, you may check your [facility] [employer] Portal for your results they will post there for you to review your results Clinical Impressions Clinical Impression: Viral upper respiratory illness Instructions Patient Instructions: DI for Viral Upper Respiratory Infection -- Adult, DI for COVID-19 (Suspected or Confirmed ) Print Language Print Language: [place]i Discharge ED Provider: Rachel Garner [facility] HPI General Stated complaint: cough, weakness, headache, congestion, runny nose Mode of Arrival: Ambulatory Source of Information: Patient Limitations: No Limitations Time Seen by Provider: 07/14/24 11:49 Description of Symptoms (Recalled from Triage Doc. by RN): PATIENT C/O RUNNY NOSE, BODY ACHES, WEAKNESS, HEADACHE, AND FEELING LIGHT-HEADED X 2 DAYS. PATIENT REPORTS RECENT EXPOSURE TO COVID HEENT Symptoms (Recalled from RN notes): Yes Resp Symptoms (Recalled from RN notes): No Skin Symptoms (Recalled from RN notes): No MS Symptoms (Recalled from RN notes): No Functional Status (Recalled from RN notes): WNL History of Present Illness Provider Complaint: Patient states that she is wanting to get tested for COVID States that her family had COVID last week and now she is having symptoms States for the last couple of days she has been having sneezing, nasal congestion and cough feeling tired and achy so she came in to get tested Related Data Home Medications ?Medication ?Instructions ?Recorded ?Confirmed No Known Home Medications 05/12/24 05/12/24 Allergies Allergy/AdvReac Type Severity Reaction Status Date / Time No Known Allergies Allergy Verified 05/12/24 08:53 Worker's Comp Is this a Worker's Comp case?: No [facility] Disclaimer: The information contained in this section may have been updated after the patient was seen, as this information can be updated by other users. Medical History Genital herpes simplex Surgical History History of delivery Family History (Updated 05/12/24 @ 08:53 by Zulma Farris RN) Other No significant family history Social History Smoking Status: Current every day smoker tobacco type: cigarettes packs per day: 1 alcohol intake: current alcohol intake frequency: a few times a month substance use type: denies use current occupational status: employed Travel in the last 8 weeks: None household members: family caffeine: Yes ROS Obtained: Yes All systems reviewed & no additional complaints except as documented and Yes Systems reviewed as appropriate & no additional complaints except as documented Constitutional Constitutional: Reports system reviewed and no additional complaints, except as documented and Reports as per HPI ENT Ears, Nose
[2024-07-14 12:00] VITALS: BP 131/91; PULSE 63; RESP 19; TEMP 36.9; O2SAT 99
== END 2024-07-14 12:03 | disposition home or self-care (01) ==
PROVIDERS: Emergency Provider Nurse Practitioner; PCP Internal Medicine
DX: R05.9 Cough, unspecified (principal); J06.9 Acute upper respiratory infection, unspecified; B34.9 Viral infection, unspecified; Z20.822 Contact with and (suspected) exposure to COVID-19
CPT/HCPCS: 87635; 99212; 99213; G0463

== ENCOUNTER 2025-03-23 10:59 | Emergency (ER) | payer OTHER, SELFPAY ==
[2025-03-23 11:00] VITALS: BP 171/98; PULSE 98; RESP 17; TEMP 36.8; O2SAT 98; BMI 33.2
--- NOTE | 2025-03-23 11:28 | XR_ITS ---
FINAL REPORT CLINICAL HISTORY: Smashed hand, left thumb FINDINGS: AP, oblique, and lateral views of the left hand were obtained. There is no prior exam for comparison. There is a comminuted fracture of the distal phalanx of the left thumb, which is not significantly displaced. The fracture likely extends to the IP joint. There is soft tissue edema. There is no radiographic evidence of foreign body. IMPRESSION: Comminuted nondisplaced fracture distal phalanx left thumb that likely extends to the IP joint. Reviewed, Interpreted and Dictated by Victoria Chacon MD Transcribed by Torri Gibson Authenticated and [facility]
[2025-03-23] MEDS: IBUPROFEN 400 MG TABLET 800 MG PO (11:37)
[2025-03-23] MEDS: ACETAMINOPHEN 500MG TAB 1000 MG PO (11:37)
--- NOTE | 2025-03-23 12:09 | ED_ITS ---
Discharge Plan Disposition Patient Disposition: Home, Self-Care Condition: Good Prescriptions Prescriptions: No Action bisoprolol-hydrochlorothiazide 5-6.25 mg tablet 1 tab PO DAILY Patient Comments: TAKE ONE TABLET BY MOUTH EVERY DAY FOR BLOOD PRESSURE paroxetine HCl 12.5 mg tablet extended release 24 hr 12.5 mg PO DAILY Qty: 30 2RF lorazepam 0.5 mg tablet See Rx Instructions PO HS PRN (Reason: sleep) Qty: 14 0RF Rx Instructions: 1 or 2 orally at bedtime as needed for sleep; Referrals Follow up/Referrals: Holland Schmitt MD [Primary Care Provider] - See instructions Dylan Garnica DO [Staff Physician] - See instructions Activity Restrictions/Add. Instructions Additional Instructions/Restrictions: You were evaluated in the emergency department today and diagnosed with a fracture of the distal phalanx of your left thumb. Please keep the splint on. You may take it off to shower but then reapply quickly afterward. Keep it clean and dry. Follow-up closely with orthopedics. He will need to contact his office to schedule an appointment. Take Tylenol and ibuprofen every 4-6 hours as needed for pain. Return to the emergency department for new or worsening symptoms. Clinical Impressions Clinical Impression: Fracture of thumb, left, closed Qualifiers: Encounter type: initial encounter Phalanx: distal Fracture alignment: nondisplaced Qualified Code(s): S62.525A - Nondisplaced fracture of distal phalanx of left thumb, initial encounter for closed fracture Stand Alone Forms Stand Alone Forms: Work/School Release Instructions Patient Instructions: DI for a Hand Fracture Print Language Print Language: Bruneian Discharge ED Provider: Ruma Simmons General Adult HPI General Chief complaint: Extremity Injury, Upper Stated complaint: AO 03/23/25 10:30, inj left thumb Time Seen by Provider: 03/23/25 11:27 Mode of Arrival: Ambulatory Source of Information: Patient Description of Symptoms (Recalled from ER Triage Doc. by RN): pt to the ED with left thumb pain after smashing it between two railcars at work. no open wounds present on assessment History of Present Illness HPI narrative: This patient is a 29-year-old ejqcy-fxbv-ohonlqia female presented to the emergency department for evaluation with concern for left hand injury. She has pain in her left thumb after smashing it between a tool and a rail car at work when trying to pry the door open. No open wounds. No numbness, tingling, or other concerns. She was well prior to this. Related Data Home Medications ?Medication ?Instructions ?Recorded ?Confirmed bisoprolol 5 1 tab PO DAILY 07/20/24 07/20/24 mg-hydrochlorothiazide 6.25 mg tablet Previous Rx's ?Medication ?Instructions ?Recorded lorazepam 0.5 mg tablet See Rx Instructions PO HS PRN 07/20/24 sleep #14 tabs paroxetine HCl 12.5 mg 12.5 mg PO DAILY #30 tabs 07/20/24 tablet,extended release 24 hr Allergies Allergy/AdvReac Type Severity Reaction Status Date / Time No Known Allergies Allergy Verified 07/20/24 11:56 [facility] Disclaimer: The information contained in this section may have been updated after the patient was seen, as this information can be updated by other users. Medical History Genital herpes simplex Surgical History History of delivery Family History Other No significant family history Social History Smoking Status: Unknown if ever smoked alcohol intake: current alcohol intake frequency: a few times a month substance use type: denies use current occupational status: employed Travel in the last 8 weeks?: None household members: family caffeine: Yes Other Medical History Have you received the Flu Vaccine for this season: No Have you received the Pneumonia Vaccine: No ROS Obtained: Yes All systems reviewed & no additional complaints except as documented Physical Exam General General appearance: alert and in no apparent distress Head Head exam: atraumatic and normocephalic Eye Eye exam: Present normal appearance, PERRL and EOMI ENT ENT exam: Present normal exam, normal oropharynx, mucous membranes moist and normal external ear exam Neck Neck exam: Present normal inspection, full ROM and trachea midline; Absent tenderness Chest Chest inspection: Present normal inspection and symmetric chest wall rise; Absent tenderness Respiratory Respiratory exam: Present normal lung sounds bilaterally; Absent respiratory distress, wheezes, stridor or accessory muscle use Cardiovascular Cardiovascular exam: Present regular rate and normal rhythm Abdominal Exam Abdominal exam: Present soft; Absent distention, tenderness or guarding Extremities Exam Extremities exam: Present tenderness (Left thumb, no scaphoid tenderness) and normal capillary refill; Absent full ROM (Limited range of motion of the left thumb secondary to pain but no obvious tendon deficit, neurovascularly intact) or edema Back Exam Back exam: Present normal inspection and full ROM; Absent tenderness Neurological Exam Neurological exam: Present alert, oriented X3, CN II-XII intact and normal gait; Absent motor sensory deficit Psychiatric Psychiatric exam: Present normal affect and normal mood Skin Skin exam: Present warm and dry Medical Decision Making Medical Records Medical records reviewed: Yes I reviewed the patient's medical records. Screening: Per USPSTF and CDC recommendations, given the prevalence of disease in our region, it is our hospital?s policy to screen for HIV and viral Hepatitis for all patients aged 18 and over and those with ongoing risk factors. Catracho Inquiry Pt receiving controlled substance: No Vital Signs: 03/23/25 11:00 03/23/25 13:23 Temperature 98.2 F 98 F Temperature Source Oral Pulse Rate 82 Pulse Rate [Left Radial] 98 H Respiratory Rate 17 16 Blood Pressure 156/100 H Blood Pressure [Right Arm] 171/98 H Blood Pressure Mean [Right Arm] 122 Blood Pressure Source [Right Arm] Automatic Cuff Blood Pressure Position [Right Arm] Sitting 02 Sat by Pulse Oximetry 98 Oxygen Delivery Method Room Air Room Air Lab Data Lab results reviewed: Yes I reviewed the patient's lab results. Orders (Tests/Meds): ED MEDICATIONS Discontinued Medications Generic Name Dose Route Start Last Admin Trade Name Freq PRN Reason Stop Dose Admin Acetaminophen 1,000 mg 03/23/25 11:32 03/23/25 11:37 Acetaminophen 500mg Tab PO 03/23/25 11:33 1,000 mg ONCE ONE Administration Ibuprofen 800 mg 03/23/25 11:32 03/23/25 11:37 Ibuprofen 400 Mg Tablet PO 03/23/25 11:33 800 mg ONCE ONE Administration ORDERS Category Date Time Status Hand XR left minimum 3 views [XR hand LT min 3V] Stat Exams 03/23/25 11:28 Completed Medical Decision Narrative: In summary, this patient is a 29-year-old female presenting to the Emergency Department for evaluation of left hand injury. Differential diagnoses considered include but are not limited to fracture, contusion, crush injury, neurovascular injury. Ruling out the most morbid conditions drove assessment. On exam, the patient is neurovascularly intact with no open wounds. No significant scaphoid tenderness. She has tenderness palpation of the proximal phalanx of the left thumb. She is given oral Tylenol and ibuprofen for pain. workup included x-rays of the left thumb. I independently interpreted x-ray prior to the radiologist read and noted comminuted fracture of the distal phalanx of the left thumb. Please see their read for final interpretation. I had interactive discussion with Dr. Garnica with orthopedics who recommended thumb spica splint and discharged with outpatient follow-up. Patient was placed in thumb spica splint this prefabricated which she tolerated well and remained neurovascularly intact after splinting. She was discharged with instructions for close follow-up and supportive management. Strict return precautions given Procedures Risk/Benefits of Procedure(s) Were Explained: Yes Orthopedic Splinting/Casting Injury #1: Side: left Upper Extremity Injury Location: hand Upper Extremity Immobilizer: thumb spica Post Cast/Splinting Neuro Status: intact and no change Post Cast/Splinting Vasc Status: intact and no change Critical Care Critical Care Time Critical Care Time: No
[2025-03-23 13:23] VITALS: BP 156/100; PULSE 82; RESP 16; TEMP 36.6; O2SAT 99
== END 2025-03-23 13:26 | disposition home or self-care (01) ==
PROVIDERS: Emergency Provider Emergency Medicine; PCP Internal Medicine
DX: S62.525A Nondisplaced fracture of distal phalanx of left thumb, initial encounter for closed fracture (principal); W23.0XXA Caught, crushed, jammed, or pinched between moving objects, initial encounter
CPT/HCPCS: 73130; 99283

== ENCOUNTER 2025-03-27 11:27 | Outpatient (CLI) | payer OTHER, SELFPAY ==
--- NOTE | 2025-03-27 11:30 | XR_ITS ---
FINAL REPORT CLINICAL HISTORY: lt hand pain COMPARISON: 03/23/2025 FINDINGS: LEFT HAND Three views were obtained. The comminuted fracture of the first distal phalange is essentially stable. There is no definite intra-articular extension. IMPRESSION: Stable fracture as above. Reviewed, Interpreted and Dictated by Cameron Yu MD Transcribed by Sania Reyna Authenticated and . [facility]
== END 2025-03-27 23:59 | disposition home or self-care (01) ==
LOC: RAD 11:28
PROVIDERS: PCP Internal Medicine; Visit Provider Physician Assistant Surgical
DX: S62.522A Displaced fracture of distal phalanx of left thumb, initial encounter for closed fracture
CPT/HCPCS: 73130

== ENCOUNTER 2025-04-03 13:20 | Outpatient (CLI) | payer OTHER, SELFPAY ==
--- NOTE | 2025-04-03 13:23 | XR_ITS ---
FINAL REPORT CLINICAL HISTORY: left thumb fx COMPARISON: 03/27/2025 FINDINGS: LEFT HAND Three views were obtained. There is a severely comminuted fracture of the first distal phalanx. There is mild displacement which is minimally worse. No new fracture is identified. The visualized joint spaces are normally aligned. The soft tissues are unremarkable. IMPRESSION: Minimally worsening displacement of comminuted fracture of the first distal phalanx. Reviewed, Interpreted and Dictated by Wesly Wray MD Transcribed by Yolanda Orosco Authenticated and [facility]
== END 2025-04-03 23:59 | disposition home or self-care (01) ==
LOC: RAD 13:21
PROVIDERS: PCP Internal Medicine; Visit Provider Physician Assistant Surgical
DX: S62.522A Displaced fracture of distal phalanx of left thumb, initial encounter for closed fracture (principal)
CPT/HCPCS: 73130

== ENCOUNTER 2025-04-11 13:41 | Outpatient (CLI) | payer OTHER, SELFPAY ==
--- NOTE | 2025-04-11 13:44 | XR_ITS ---
FINAL REPORT CLINICAL HISTORY: lt thumb fracture COMPARISON: 04/03/2025 FINDINGS: LEFT HAND Three views demonstrate a comminuted mildly displaced fracture of the first distal phalanx, without intra-articular extension. There has been no significant change in appearance since the prior exam of 04/03/2025. The visualized joint spaces are normally aligned. The soft tissues are unremarkable. IMPRESSION: Comminuted mildly displaced fracture of the first distal phalanx, without intra-articular extension, stable since the prior exam of 04/03/2025. Reviewed, Interpreted and Dictated by Cameron Yu MD Transcribed by Gris Goncalves Authenticated and [facility]
[2025-04-11 18:51] LABS: Alanine Aminotransferase 30 U/L (12-78); Albumin Level 4.5 g/dl (3.5-5.0); Albumin/Globulin Ratio 1.5 (1.1-1.8); Alkaline Phosphatase 82 U/L (38-126); Anion Gap 15.2 mEq/L (5-15); Aspartate Amino Transferase 33 U/L (14-36); Bilirubin,Total 0.3 mg/dl (0.2-1.3); Blood Urea Nitrogen 18 mg/dl (7-17); Calcium 9.2 mg/dl (8.4-10.2); Carbon Dioxide 27 mmol/L (22.0-30.0); Chloride 102 mmol/L (98-107); Estimated Glomerular Filt Rate 100 ml/min (>60); GFR (African American) 121 ML/MIN (>60); Globulin 3.1 g/dL (1.3-3.2); Glucose 81 mg/dl (74-100); Potassium 4.2 mmoL/L (3.5-5.1); Sodium 140 mmol/L (136-145); Total Protein,Serum 7.6 g/dl (6.3-8.2)
[2025-04-11 19:16] LABS: Basophils # 0.1 K/mm3 (0-0.2); Basophils % 0.7 % (0.1-2.0); Eosinophils # 0.1 Kmm3 (0.0-0.4); Hematocrit 36.5 % (37.0-47.0); Hemoglobin 11.5 g/dL (12.2-16.2); Immature Granulocytes # 0.04 10^3uL; Immature Granulocytes % 0.4 %; Lymphocytes # 2.9 K/mm3 (0.7-4.5); Lymphocytes % 32.2 % (10-50); Mean Corpuscular HGB Conc 31.5 g/dL (31.8-35.4); Mean Corpuscular Hemoglobin 25.7 pg (27.0-31.2); Mean Corpuscular Volume 81.7 fl (81-99); Mean Platelet Volume 10.3 fl (7.4-10.4); Monocytes # 0.6 K/mm3 (0.1-1.0); Monocytes % 6.4 % (1.7-9.3); Neutrophils # 5.3 K/mm3 (1.8-7.8); Neutrophils % 59.3 % (37.0-80.0); Nucleated Red Blood Cells # 0 10^3/uL; Nucleated Red Blood Cells % 0 %; Platelet Count 381 K/mm3 (142-424); Red Blood Count 4.47 M/mm3 (4.20-5.40); Red Cell Distribution Width 15.3 % (11.5-17.5); Red Cell Distribution Width-SD 45.2 fL; White Blood Count 8.9 K/mm3 (4.8-10.8)
== END 2025-04-11 23:59 | disposition home or self-care (01) ==
LOC: RAD 13:42
PROVIDERS: PCP Internal Medicine; Visit Provider Physician Assistant
DX: S62.522A Displaced fracture of distal phalanx of left thumb, initial encounter for closed fracture (principal); B35.1 Tinea unguium; I10 Essential (primary) hypertension
CPT/HCPCS: 36415; 73130; 80053; 85025

== ENCOUNTER 2025-05-29 15:55 | Outpatient (CLI) | payer OTHER, SELFPAY ==
[2025-05-29 17:51] LABS: Hematocrit 37.1 % (37.0-47.0); Hemoglobin 11.6 g/dL (12.2-16.2); Immature Granulocytes % 0.3 %; Mean Corpuscular HGB Conc 31.3 g/dL (31.8-35.4); Mean Corpuscular Hemoglobin 25.7 pg (27.0-31.2); Mean Corpuscular Volume 82.1 fl (81-99); Nucleated Red Blood Cells % 0 %; Platelet Count 316 K/mm3 (142-424); Red Blood Count 4.52 M/mm3 (4.20-5.40); Red Cell Distribution Width-SD 41.8 fL; White Blood Count 7.1 K/mm3 (4.8-10.8)
[2025-05-29 19:11] LABS: Albumin Level 4.2 g/dl (3.5-5.0); Chloride 98 mmol/L (98-107); Potassium 4.3 mmoL/L (3.5-5.1); Sodium 135 mmol/L (136-145)
[2025-05-29 19:14] LABS: Alanine Aminotransferase 37 U/L (12-78); Albumin/Globulin Ratio 1.3 (1.1-1.8); Alkaline Phosphatase 79 U/L (38-126); Anion Gap 15.3 mEq/L (5-15); Aspartate Amino Transferase 44 U/L (14-36); Blood Urea Nitrogen 12 mg/dl (7-17); Carbon Dioxide 26 mmol/L (22.0-30.0); Creatinine,Serum 0.60 mg/dl (0.52-1.04); Estimated Glomerular Filt Rate 118 ml/min (>60); GFR (African American) 143 ML/MIN (>60); Globulin 3.3 g/dL (1.3-3.2); Total Protein,Serum 7.5 g/dl (6.3-8.2)
[2025-05-29 19:15] LABS: Calcium 8.9 mg/dl (8.4-10.2); Glucose 114 mg/dl (74-100)
[2025-05-29 19:50] LABS: Bilirubin,Total < 0.1 mg/dl (0.2-1.3)
--- OUTSIDE RECORDS SUMMARY | 2025-05-30 08:57 | XMS_ITS | Clinical Summary ---
Author Organization Healthcare Address [address] [place] [address] Care Team Providers Care Assistant Corporate Controller Name Role Phone Holland Schmitt MD Primary Care Provider [phone] Allergies No known active allergies Medications valACYclovir (Valtrex) 1 g tablet Take 1 tablet (1,000 mg total) by mouth 1 (one) time each day. 90 tablet 07/30/2022 Active Active Problems Problem Noted Date Diagnosed Date Ovarian cyst 05/20/2021 HSV infection 02/16/2020 Depression 08/28/2019 History of severe pre-eclampsia 07/24/2019 Acute vaginitis 08/13/2015 Immunizations Immunization Administration Dates Next Due HPV, Quadrivalent 08/31/2012,07/19/2012 Influenza, injectable, quadrivalent 08/28/2019 Family History Medical History Relation Name Comments Diabetes Father Hypertension Father Relation Name Status Comments Father Social History Tobacco Use Types Packs/Day Years Used Date Smoking Tobacco: Every Day Cigarettes Smokeless Tobacco: Never Comments:Vapes more then smo kes Alcohol Use Standard Drinks/Week Comments Never 0 (1 standard drink = 0.6 oz pur e alcohol) Comments Unknown Sex and Gender Information Value Date Recorded Sex Assigned at Not on file Legal Sex Female 6:42 PM EDT Gender Identity Not on file Sexual Orientation Not on file Last Filed Vital Signs Vital Sign Reading Time Taken Comments Blood Pressure 118/72 05/14/2021 3:15 PM EDT Pulse 92 05/14/2021 3:15 PM EDT Temperature 37.3 C (99.1 F) 05/14/2021 3:15 PM EDT Respiratory Rate 16 02/12/2020 12:58 PM EDT Oxygen Saturation - - Inhaled Oxygen Concentration - - Weight 72 kg (158 lb 11.7 oz) 05/14/2021 3:15 PM EDT Height 154.9 cm (5' 1 ) 05/14/2021 3:15 PM EDT Body Mass Index 29.99 05/14/2021 3:15 PM EDT Plan of Treatment Health Maintenance Due Date Last Done Comments [facility]-Depression Screening 1996 [facility]-Infant/Child/Adol SDOH Screenings 1996 [facility]-Hepatitis B Vaccines (3 of 3 - 3-dose series) 03/28/1998 01/31/1998, 1996 [facility]-Varicella Vaccines (1 of 2 - 13+ 2-dose series) 2009 HPV Vaccines (3 - 3-dose series) 01/16/2013 08/31/2012, 07/19/2012 [facility]- SDOH Screenings 2014 [facility]-Adult SDOH Screenings 2014 [facility]-DTaP,Tdap,and Td Vaccines (7 - Td or Tdap) 06/14/2018 06/14/2008, 05/28/2000, 01/31/1998, Additional history exists [facility]-Pap Smear 04/03/2024 04/03/2021 [id number] Vaccine ( - season) 2024 [facility]-Influenza Vaccine (#1) 2025 08/28/2019 [facility]-Zoster Vaccines (1 of 2) 2046 [facility]-HIB Vaccines Completed 01/31/1998, , 1996, Additional history exists [facility]-IPV Vaccines Completed 05/28/2000, , 1996, Additional history exists [facility]-Hepatitis A Vaccines Aged Out No longer eligible based on patient's age to complete this topic [facility]-Pneumococcal Vaccine: Pediatrics (0 to 5 Years) and At-Risk Patients (6 to 49 Years) Aged Out No longer eligible based on patient's age to complete this topic [facility]-Rotavirus Vaccines Aged Out No lo nger eligible based on patient's age to complete this topic Procedures Procedure Name Priority Date/Time Associated Diagnosis Comments CYTO DATA CONVERSION Routine 04/03/2021 12:00 AM EDT from Last 3 Months or Most Recently Relevant to Health Maintenance Results * Cytology (04/03/2021 12:00 AM EDT) 04/03/2021 04/09/2021 11: 56 AM EDT Narrative COPATH - 04/17/2021 2:50 PM EDT [facility] MR #: [id number] [facility] [address] [place], [place] [address] 1995 (Age: 25) FW Collect Date: 04/03/2021 00:00 Receipt Date: 04/09/2021 11:56 Page 1 DEPARTMENT OF PATHOLOGY AND LABORATORY MEDICINE CYTOPATHOLOGY REPORT Email: [email or web address] [phone] ATTENDING MD/Practitioner: Nila Baires Service: ZOB Location: GTOB Reported: 04/17/2021 14:50 Collected: 04/03/2021 00:00 INTERPRETATION A. THIN PREP (CERVICAL/VAGINAL): NEGATIVE FOR INTRAEPITHELIAL LESION OR MALIGNANCY. FUNGAL ORGANISMS CONSISTENT WITH KURTIS SPECIES. SATISFACTORY FOR EVALUATION; ENDOCERVICAL/ TRANSFORMATION ZONE COMPONENT PRESENT. Slide scanned and imaged by [employer] ThinPrep Imaging System with manual review of all selected lawson. Electronically Signed Out By MOOKIE Jung(ASCP) MOOKIE Martinez (ASCP) MOOKIE Jung(ASCP) Cervical cytology is a screening test primarily for squamous cancers and precursors and has associated false negative and positive results. New technologies such as liquid based sampling may decrease but will not eliminate all false negative results. Regular screening and follow-up of unexplained clinical signs and symptoms are recommended to minimize false negative results. Please see the ASCCP website (www.asccp.org) for followup recommendations. If HPV testing was requested, correlation with the results is suggested (please call Microbiology at [phone] for results). CLINICAL INFORMATION: Menstrual History: Cyclic Date of Last Menstrual Period: 24Mar2021 Other Clinical Conditions: If ASCUS and > 24 years of age, HPV/DNA testing requested. SPECIMEN DESCRIPTION: A: THIN PREP (CERVICAL/VAGINAL) THIN PREP PROCESS CELLULAR ENHANCEMENT ICD: F: A; RT IMAGE [id number] SNOMED CODES: A; P6P569 [id number] [id number] [id number] In cases where a pathologist has signed out the report, the service has been rendered in part by a resident. The signing pathologist has performed and is responsible for the reported pathologic evaluation. Rula Zurita APRN, CNM LAB PATHOLOGY ORDER CHLOE Final Result COPATH from Last 3 Months or Most Recently Relevant to Health Maintenance Insurance [place] [id number] [employer] Care Teams Assistant Corporate Controller Relationship Specialty Start Date End Date Holland Schmitt MD [address] [facility] [address] [place] [address] PCP - General 03/28/21
== END 2025-05-29 23:59 | disposition home or self-care (01) ==
LOC: LAB.DROPOF 05-30 08:54
PROVIDERS: PCP Internal Medicine; Visit Provider Internal Medicine
DX: B35.1 Tinea unguium (principal); I10 Essential (primary) hypertension
CPT/HCPCS: 80053; 85025

== ENCOUNTER 2025-06-01 16:13 | Emergency (ER) | payer OTHER, SELFPAY ==
[2025-06-01] VITALS (7 sets, daily range): BP systolic 111–142; BP diastolic 66–108; PULSE 69–92; RESP 16–19; TEMP 36.8–37.1; O2SAT 96–100; BMI 32.1
--- NOTE | 2025-06-01 16:40 | CT_ITS ---
PROCEDURE INFORMATION: Exam: CT Abdomen And Pelvis With Contrast Exam date and time: 06/01/2025 6:09 PM Age: 30 years old Clinical indication: Abdominal pain; Additional info: Right flank pain TECHNIQUE: Imaging protocol: Computed tomography of the abdomen and pelvis with contrast. Radiation optimization: All CT scans at this facility use at least one of these dose optimization techniques: automated exposure control; mA and/or kV adjustment per patient size (includes targeted exams where dose is matched to clinical indication); or iterative reconstruction. Contrast material: ISOVUE; Contrast volume: 75 ml; Contrast route: IV; COMPARISON: CT ABDOMEN PELVIS W CON 07/09/2021 2:04 PM FINDINGS: Liver: There is diffuse hypoattenuation of the liver compatible with mild hepatic steatosis. Gallbladder and biliary ducts: Normal. No calcified stones. No ductal dilation. Pancreas: Normal. No ductal dilation. Spleen: Normal. No splenomegaly. Adrenal glands: Normal. No mass. Kidneys and ureters: Normal. No hydronephrosis. Stomach and bowel: Unremarkable. No obstruction. No mucosal thickening. Appendix: The appendix is normal in caliber without wall thickening. Intraperitoneal space: Unremarkable. No free air. No significant fluid collection. Vasculature: Unremarkable. No abdominal aortic aneurysm. Lymph nodes: Unremarkable. No enlarged lymph nodes. Urinary bladder: Unremarkable as visualized. Reproductive: Unremarkable as visualized. Bones/joints: Unremarkable. No acute fracture. Soft tissues: Normal. IMPRESSION: No acute findings.
--- OUTSIDE RECORDS SUMMARY | 2025-06-01 16:41 | XMS_ITS | Clinical Summary ---
Author Organization Healthcare Address [address] [place] [address] Care Team Providers Care Pole Incisor Operator Name Role Phone Holland Schmitt MD Primary Care Provider [phone] Allergies No known active allergies Medications valACYclovir [...] Additional history exists [facility]-Pap Smear 04/03/2024 04/03/2021 [id number] Vaccine ( - season) 2024 [facility]-Influenza Vaccine [...] Narrative COPATH - 04/17/2021 2:50 PM EDT [facility] MR #: [id number] [facility] [address] [place], [place] [address] 1995 (Age: 25) FW Collect Date: 04/03/2021 00:00 Receipt Date: 04/09/2021 11:56 Page 1 DEPARTMENT OF PATHOLOGY AND LABORATORY MEDICINE CYTOPATHOLOGY REPORT Email: [email or web address] [phone] ATTENDING MD/Practitioner: Nila Baires Service: ZOB Location: GTOB Reported: 04/17/2021 14:50 Collected: 04/03/2021 00:00 INTERPRETATION A. THIN PREP (CERVICAL/VAGINAL): NEGATIVE FOR INTRAEPITHELIAL LESION OR MALIGNANCY. FUNGAL ORGANISMS CONSISTENT WITH KURTIS SPECIES. SATISFACTORY FOR EVALUATION; ENDOCERVICAL/ TRANSFORMATION ZONE COMPONENT PRESENT. Slide scanned and imaged by [employer]inPrep Imaging System with manual review of [...] results is suggested (please call Microbiology at [phone] for results). CLINICAL INFORMATION: Menstrual History: Cyclic Date of Last Menstrual Period: 24Mar2021 Other Clinical Conditions: If ASCUS and > 24 years of age, HPV/DNA testing requested. SPECIMEN DESCRIPTION: A: THIN PREP (CERVICAL/VAGINAL) THIN PREP PROCESS CELLULAR ENHANCEMENT ICD: F: A; RT IMAGE [id number] SNOMED CODES: A; [id number] [id number] [id number] [id number] In cases where a pathologist has signed out the report, the service has been rendered in part by a resident. The signing pathologist has performed and is responsible for the reported pathologic evaluation. Rula Zurita APRN, CNM LAB PATHOLOGY ORDER CHLOE Final Result COPATH from Last 3 Months or Most Recently Relevant to Health Maintenance Insurance [place] [id number] [employer] MED[employer] Care Teams Pole Incisor Operator Relationship Specialty Start Date End Date Holland Schmitt MD [address] [facility] [address] [place] [address] PCP - General 03/28/21
--- NOTE | 2025-06-01 16:44 | ED_ITS ---
<Statement entered by Dorie Leary DO - 06/02/25 01:53> I was consulted by the BERT, and we discussed the complexity of problems being addressed. I approve the treatment and management plan for this patient's care in the emergency department, thus performing a substantial portion of the medical decision making. Dorie Leary DO Discharge Plan Disposition Patient Disposition: Home, Self-Care Prescriptions Prescriptions: No Action bisoprolol-hydrochlorothiazide 5-6.25 mg tablet 1 tab PO DAILY Qty: 90 1RF trazodone 100 mg tablet 100 mg PO HS Qty: 90 0RF hydroxyzine HCl 25 mg tablet 25 mg PO QID PRN (Reason: anxiety) Qty: 100 0RF terbinafine HCl 250 mg tablet See Rx Instructions .ROUTE .COMPLEX Qty: 90 1RF Dose Instruction: TAKE ONE TABLET BY MOUTH EVERY DAY Rx Instructions: TAKE ONE TABLET BY MOUTH EVERY DAY Referrals Follow up/Referrals: Johana Lloyd DO [Staff Physician, COOPERATIVE MANAGER] - See instructions Holland Schmitt MD [Primary Care Provider, Medical] - See instructions Activity Restrictions/Add. Instructions Additional Instructions/Restrictions: Follow-up with PCP or [facility] for repeat blood work. Clinical Impressions Clinical Impression: Vaginal bleeding Stand Alone Forms Stand Alone Forms: Work/School Release Instructions Patient Instructions: DI for Vaginal Bleeding, DI for Abnormal Uterine Bleeding Print Language Print Language: Maori Discharge ED Provider: Dorie Leary General Adult HPI General Chief complaint: Vaginal Bleeding Stated complaint: Heavy bleeding with clots Time Seen by Provider: 06/01/25 16:34 Mode of Arrival: Ambulatory Source of Information: Patient Description of Symptoms (Recalled from ER Triage Doc. by RN): Patient presents to ED from home with c/o heavy vaginal bleeding, lower abdominal cramping and nausea/vomiting. Notes hx of Ovarian Cyst. History of Present Illness HPI narrative: 30-year-old female presents to the ED today for complaint of heavy vaginal bleeding. She states that she has started her. In the first 3 days she just spotted then she started bleeding through super plus tampons in 30 minutes. She says that she has been having abdominal cramping, pain, weakness, nausea. She has a history of ovarian cysts. She had 1 rupture in 2020. She had to have a softball sized cyst removed in 2020 as well. She denies . No recent fevers or chills. Related Data Previous Rx's ?Medication ?Instructions ?Recorded bisoprolol 5 1 tab PO DAILY #90 tabs 03/16 9/25 mg-hydrochlorothiazide 6.25 mg tablet hydroxyzine HCl 25 mg tablet 25 mg PO QID PRN anxiety #100 tabs 04/12/25 trazodone 100 mg tablet 100 mg PO HS #90 tabs terbinafine HCl 250 mg tablet See Rx Instructions .Rou te 05/30/25 .COMPLEX #90 tabs Allergies Allergy/AdvReac Type Severity Reaction Status Date / Time No Known Allergies Allergy Verified 05/29/25 15:[address] [facility] Disclaimer: The information contained in this section may have been updated after the patient was seen, as this information can be updated by other users. Medical History Genital herpes simplex Surgical History History of delivery Family History Other No significant family history Social History Smoking Status: Current every day smoker tobacco type: cigarettes packs per day: 1 alcohol intake: current alcohol intake frequency: a few times a month substance use type: denies use current occupational status: employed Travel in the last 8 weeks?: None household members: family caffeine: Yes Have you lived/traveled outside [place] in past 30 days?: No Contact w/someone who lives/traveled outside [place] past 30 days?: No Exposure to someone with infectious disease in past 14 days?: No Do you have a fever (greater than 100.4 F or 38 C)?: No Have you tested positive for COVID-19?: No Exposed to someone with COVID-19 in past 14 days?: No Do you have a sore throat?: No Do you have a cough?: No Do you have any weakness?: No Do you have any diarrhea?: No Are you experiencing any unusual bleeding?: No Do you have any muscle aches/pain?: No Do you have any abdominal pain?: No Are you experiencing loss of taste or smell?: No Other Medical History Have you received the Flu Vaccine for this season: No Have you received the Pneumonia Vaccine: No ROS Obtained: Yes Systems reviewed as appropriate & no additional complaints except as documented Constitutional Constitutional: Reports as per HPI Physical Exam General General appearance: alert and in no apparent distress Head Head exam: normocephalic Eye Eye exam: Present PERRL and EOMI ENT ENT exam: Present normal oropharynx and mucous membranes moist Neck Neck exam: Present full ROM and trachea midline Respiratory Respiratory exam: Present normal lung sounds bilaterally Cardiovascular Cardiovascular exam: Present regular rate, normal rhythm, normal heart sounds, +S1 and +S2 Abdominal Exam Abdominal exam: Present soft and normal bowel sounds Abdominal tenderness: Present suprapubic and moderate Extremities Exam Extremities exam: Present normal inspection, full ROM and normal capillary refill Neurological Exam Neurological exam: Present alert and oriented X3 Skin Skin exam: Present warm, dry and intact Medical Decision Making Medical Records Screening: Per USPSTF and CDC recommendations, given the prevalence of disease in our region, it is our hospital?s policy to screen for HIV and viral Hepatitis for all patients aged 18 and over and those with ongoing risk factors. Catracho Inquiry Pt receiving controlled substance: No Catr[place] was queried for this patient: No Vital Signs: 06/01/25 16:37 06/01/25 17:03 06/01/25 17:45 Temperature 98.8 F Temperature Source Oral Pulse Rate 80 73 Pulse Rate [Left] 92 H Respiratory Rate 19 18 16 Blood Pressure 121/71 111/66 Blood Pressure [Left Arm] 142/108 H Blood Pressure Mean 87 77 Blood Pressure Mean [Left Arm] 119 Blood Pressure Source [Left Arm] Automatic Cuff Blood Pressure Position [Left Arm] Sitting 02 Sat by Pulse Oximetry 96 97 98 Oxygen Delivery Method Room Air 06/01/25 18:00 06/01/25 18:30 06/01/25 19:00 Temperature Temperature Source Pulse Rate 75 69 72 Pulse Rate [Left] Respiratory Rate Blood Pressure 117/72 126/74 127/83 Blood Pressure [Left Arm] Blood Pressure Mean 87 89 97 Blood Pressure Mean [Left Arm] Blood Pressure Source [Left Arm] Blood Pressure Position [Left Arm] 02 Sat by Pulse Oximetry 100 100 100 Oxygen Delivery Method Room Air 06/01/25 19:52 Temperature 98.3 F Temperature Source Oral Pulse Rate 75 Pulse Rate [Left] Respiratory Rate 16 Blood Pressure 127/81 Blood Pressure [Left Arm] Blood Pressure Mean Blood Pressure Mean [Left Arm] Blood Pressure Source [Left Arm] Blood Pressure Position [Left Arm] 02 Sat by Pulse Oximetry Oxygen Delivery Method Room Air Lab Data Lab Results 06/01/25 16:35: Urine Color Yellow, Urine Appearance Clear, Urine pH 6.0, Ur Specific Shel[place] 1.025, Urine Protein Negative, Urine Glucose (UA) Negative, Urine Ketones Negative, Urine Blood 3+ A, Urine Nitrate Negative, Urine Bilirubin Negative, Urine Urobilinogen 0.2, Ur Leukocyte Esterase Negative, Urine RBC 20-50, Urine WBC 3-5, Ur Squamous Epith Cells 10-20, Urine Bacteria 3+, Urine Mucus 4+, Urine HCG, Qual Negative 06/01/25 16:52: WBC 6.9, RBC 4.44, Hgb 11.4 L, Hct 36.1 L, MCV 81.3, MCH 25.7 L, MCHC 31.6 L, RDW 14.4, Plt Count 357, MPV 9.7, Neut % (Auto) 46.1, Lymph % (Auto) 41.6, Miller % (Auto) 9.9 H, Eos % (Auto) 1.6, Baso % (Auto) 0.7, Neut # (Auto) 3.2, Lymph # (Auto) 2.9, Miller # (Auto) 0.7, Eos # (Auto) 0.1, Baso # (Auto) 0.1, PT 10.4, INR 0.93, APTT 25.5, Sodium 137, Potassium 4.1, Chloride 103, Carbon Dioxide 26, Anion Gap 12.1, BUN 16, Creatinine 0.80, Estimated Creat Clear 126, Estimated GFR 85, Est GFR ( Amer) 103, Glucose 98, Calcium 9.4, Magnesium 1.8, Total Bilirubin 0.3, AST 35, ALT 34, Alkaline Phosphatase 72, Total Protein 7.7, Albumin 4.5, Globulin 3.2, Albumin/Globulin Ratio 1.4, Lipase 76 06/01/25 16:52 06/01/25 16:52 Orders (Tests/Meds): ED MEDICATIONS Discontinued Medications Generic Name Dose Route Start Last Admin Trade Name Freq PRN Reason Stop Dose Admin Acetaminophen 1,000 mg 06/01/25 16:40 06/01/25 16:55 Acetaminophen 1,000mg/100ml Vial IV 06/01/25 16:41 1,000 mg ONCE ONE Administration Sodium Chloride 1,000 mls @ 999 mls/hr 06/01/25 16:40 06/01/25 16:55 Sod Chlor 0.9% 1000ml Bag IV 06/01/25 17:40 999 mls/hr .Q1H1M ONE Administration Morphine Sulfate 2 mg 06/01/25 16:40 06/01/25 16:56 Morphine 2mg/Ml Syringe IV 06/01/25 16:41 2 mg ONCE ONE Administration Ondansetron HCl 4 mg 06/01/25 16:43 06/01/25 16:56 Ondansetron 4mg/2ml Vial IV 06/01/25 16:44 4 mg ONCE ONE Administration ORDERS Category Date Time Status CT abdomen pelvis w con Stat Cat Scan 06/01/25 16:40 Completed US transvaginal Stat Exams 06/01/25 16:44 Completed CBC [Complete Blood Count Auto Diff] Stat Lab 06/01/25 16:52 Completed Comprehensive Metabolic Panel Stat Lab 06/01/25 16:52 Completed Lipase Stat Lab 06/01/25 16:52 Completed Magnesium Stat Lab 06/01/25 16:52 Completed PT INR [Prothrombin Time INR] Stat Lab 06/01/25 16:52 Completed PTT [Activated Partial Thrombo Time] Stat Lab 06/01/25 16:52 Completed Urinalysis and Microscopic Stat Lab 06/01/25 16:35 Completed Urine , HCG Qual. Stat Lab 06/01/25 16:35 Completed Urine Culture Stat Micro 06/01/25 16:35 Received Medical Decision Narrative: patient is a 30-year-old female presenting to the emergency department for evaluation of heavy menstrual bleeding. Patient is hemodynamically stable and nontoxic-appearing upon arrival, afebrile. Differential diagnosis includes ovarian cyst, ectopic , dysfunctional bleeding, among others. Workup will be conducted with hematologic labs, specific imaging, provocative tests. Initial inventions include crystalloid bolus, analgesics, antibiotics. Initial workup reviewed by me hematologic labs are remarkable for H&H is stable, labs otherwise look okay. Please see radiology report for formal imaging reads. Patient is stable and feeling much better after pain meds and IV fluids. I explained return precautions and to follow-up with [facility] and PCP for repeat blood work. Patient safe for discharge home. Critical Care Critical Care Time Critical Care Time: No
--- NOTE | 2025-06-01 16:44 | US_ITS ---
PROCEDURE INFORMATION: Exam: US Duplex Artery or Vein of the Abdominal and/or Reproductive Organs, Limited Ovaries Exam date and time: 06/01/2025 5:05 PM Age: 30 years old Clinical indication: Pelvic pain; Additional info: Torsion rule out TECHNIQUE: Imaging protocol: Real-time duplex ultrasound scan of the arterial or venous flow with cano scale, color Doppler flow and spectral waveform analysis with image documentation. Limited duplex exam focused on the ovaries. Duplex exam was performed to evaluate for torsion and other vascular conditions. COMPARISON: CT ABDOMEN PELVIS W CON 07/09/2021 2:04 PM FINDINGS: Right ovary/adnexa: The right ovary has normal color Doppler echoes. The right ovary has normal arterial spectral waveforms. Left ovary/adnexa: The left ovary has normal color Doppler echoes. The left ovary has normal arterial and venous spectral waveforms. IMPRESSION: Normal duplex of the ovaries. No evidence of ovarian torsion. PROCEDURE INFORMATION: Exam: US Pelvis, Transvaginal, Non-Obstetric Exam date and time: 06/01/2025 5:05 PM Age: 30 years old Clinical indication: Pelvic pain; Additional info: Torsion rule out TECHNIQUE: Imaging protocol: Real-time transvaginal pelvic (non-obstetric) ultrasound with image documentation. Transvaginal imaging was used for better evaluation of the endometrium, adnexa, and/or cervix. COMPARISON: US TRANSVAGINAL 06/28/2020 11:10 AM FINDINGS: Uterus: Uterus is normal. Endometrial stripe is normal. Right ovary/adnexa: Normal. No mass. Normal ovarian blood flow on color Doppler. Left ovary/adnexa: Normal. No mass. Normal ovarian blood flow on color Doppler. Urinary bladder: Urinary bladder is limited. Intraperitoneal space: No free fluid. IMPRESSION: No acute findings.
[2025-06-01] MEDS: ACETAMINOPHEN 1,000MG/100ML VIAL 1000 MG IV (16:55)
[2025-06-01] MEDS: 0.9 % SODIUM CHLORIDE 1000ML 1,000 ML 999 ML IV (16:55)
[2025-06-01] MEDS: MORPHINE 2MG/ML SYRINGE 2 MG IV (16:56)
[2025-06-01] MEDS: ONDANSETRON 4MG/2ML VIAL 4 MG IV (16:56)
[2025-06-01 17:01] LABS: Hematocrit 36.1 % (37.0-47.0); Hemoglobin 11.4 g/dL (12.2-16.2); Immature Granulocytes % 0.1 %; Mean Corpuscular HGB Conc 31.6 g/dL (31.8-35.4); Mean Corpuscular Hemoglobin 25.7 pg (27.0-31.2); Mean Corpuscular Volume 81.3 fl (81-99); Nucleated Red Blood Cells % 0 %; Platelet Count 357 K/mm3 (142-424); Red Blood Count 4.44 M/mm3 (4.20-5.40); Red Cell Distribution Width-SD 42.3 fL; White Blood Count 6.9 K/mm3 (4.8-10.8)
[2025-06-01 17:20] LABS: Microscopic, Urine URINE MICROSCOPIC (MICROSCOPIC)
[2025-06-01 17:22] LABS: Bilirubin,Urine Negative (Negative); Color,Urine YELLOW (Yellow); Glucose,Urine (UA) Negative (Negative); Ketones,Urine Negative (Negative); Leukocyte Esterase,Urine Negative (Negative); PH,Urine 6.0 (5.0-8.5); Protein,Urine Negative (Negative); Specific Gravity, Urine 1.025 (1.005-1.030); Urobilinogen,Urine 0.2 EU/dl (0.2)
[2025-06-01 17:23] LABS: Alanine Aminotransferase 34 U/L (12-78); Albumin Level 4.5 g/dl (3.5-5.0); Albumin/Globulin Ratio 1.4 (1.1-1.8); Alkaline Phosphatase 72 U/L (38-126); Anion Gap 12.1 mEq/L (5-15); Aspartate Amino Transferase 35 U/L (14-36); Bilirubin,Total 0.3 mg/dl (0.2-1.3); Blood Urea Nitrogen 16 mg/dl (7-17); Calcium 9.4 mg/dl (8.4-10.2); Carbon Dioxide 26 mmol/L (22.0-30.0); Chloride 103 mmol/L (98-107); Creatinine Clearance Estimated 126 mL/min (50-200); Creatinine,Serum 0.80 mg/dl (0.52-1.04); Estimated Glomerular Filt Rate 85 ml/min (>60); GFR (African American) 103 ML/MIN (>60); Globulin 3.2 g/dL (1.3-3.2); Glucose 98 mg/dl (74-100); Lipase 76 U/L (23-300); Magnesium 1.8 mg/dl (1.6-2.3); Potassium 4.1 mmoL/L (3.5-5.1); Sodium 137 mmol/L (136-145); Total Protein,Serum 7.7 g/dl (6.3-8.2)
[2025-06-01 17:33] LABS: Activated Partial Thrombo Time 25.5 seconds (22.8-30.6); INR 0.93 (0.9-1.1); Prothrombin Time 10.4 seconds (10.1-12.5)
[2025-06-01 18:02] LABS: Urine Pregnancy, HCG Qual. Negative (Negative)
[2025-06-01 18:16] LABS: RBC,Urine 20-50 #/hpf (0-3)
[2025-06-01 18:17] LABS: Bacteria,Urine 3+ /lpf; Mucus,Urine 4+ /lpf
== END 2025-06-01 19:54 | disposition home or self-care (01) ==
PROVIDERS: Nurse Practitioner; Emergency Provider Student in an Organized Health Care Education/Training Program; PCP Internal Medicine
DX: N93.9 Abnormal uterine and vaginal bleeding, unspecified (principal); F17.210 Nicotine dependence, cigarettes, uncomplicated
CPT/HCPCS: 74177; 76830; 80053; 81001; 81025; 83690; 83735; 85025; 85610; 85730; 87086; 96361; 96374; 96375; 99285; J0131; J2270; J2405; J7030

== ENCOUNTER 2025-10-16 12:49 | Emergency (ER) | payer OTHER, SELFPAY ==
[2025-10-16] VITALS (7 sets, daily range): BP systolic 108–145; BP diastolic 60–99; PULSE 62–88; RESP 14–18; TEMP 36.8–37.2; O2SAT 97–99; BMI 34.4
--- NOTE | 2025-10-16 12:54 | ED_ITS ---
Discharge Plan Disposition Patient Disposition: Home, Self-Care Condition: Good Prescriptions Prescriptions: New ondansetron 4 mg tablet,disintegrating 4 mg PO Q6H PRN (Reason: nausea and vomiting) Qty: 12 0RF dicyclomine 20 mg tablet 20 mg PO QID PRN (Reason: abdominal pain) Qty: 30 0RF No Action triamcinolone acetonide 0.1 % cream 1 applic topical TID PRN (Reason: Rash on legs) Qty: 80 1RF fluticasone propionate 50 mcg/actuation spray,suspension 1 spray intranasal DAILY Qty: 16 3RF Rx Instructions: administer into each nostril bisoprolol-hydrochlorothiazide 5-6.25 mg tablet 1 tab PO DAILY Qty: 90 1RF hydroxyzine HCl 25 mg tablet See Rx Instructions .ROUTE .COMPLEX Qty: 100 1RF Dose Instruction: TAKE ONE TABLET BY MOUTH FOUR TIMES DAILY NEEDED FOR ANXIETY MAY CAUSE DROWSINESS Rx Instructions: TAKE ONE TABLET BY MOUTH FOUR TIMES DAILY NEEDED FOR ANXIETY MAY CAUSE DROWSINESS trazodone 100 mg tablet See Rx Instructions .ROUTE .COMPLEX Qty: 90 1RF Dose Instruction: TAKE ONE TABLET BY MOUTH EVERY DAY AT BEDTIME Rx Instructions: TAKE ONE TABLET BY MOUTH EVERY DAY AT BEDTIME Referrals Follow up/Referrals: Holland Schmitt MD [Primary Care Provider, Medical] - See instructions Activity Restrictions/Add. Instructions Additional Instructions/Restrictions: You may take 1000 mg of Tylenol alternating with 600 mg of ibuprofen every 3 hours as needed for pain. Make sure that the medicines and cells are sped 6 hours apart respectively and ensure you take each medicine with a food. Stop if you are experiencing stomach upset. Take 1 capful of Miralax mixed into 4-8 oz of juice or water every 30-60 minutes for a total of 8-10 doses. This will likely cause lots of loose and watery stools. Do this for 1 day only. Please also note that if you do this with a red juice, the stool will also be red and may be confused with blood. The following day, start 1 capful of miralax mixed into 4-8 oz of juice or water and take daily. This amount may exchange engineer time. If stools are too loose, you may decrease the amount of Miralax. Likewise, if you are still not having 1-2 soft bowel movements daily then you may increase it. You may go as little as 1 teaspoon daily or as much as 2 capfuls daily. The goal is to have 1-2 soft bowel movements daily. You will need to be on Miralax for at least 6 months to avoid further constipation. Please follow up with your primary care provider in 2-3 days. Talk to them about an outpatient right upper quadrant ultrasound or a HIDA scan if your right upper quadrant pain persists. Also talk to them about your mildly elevated liver enzyme and alcohol use. Return to the ED if you develop fevers, worsening pain despite medications at home. Please return to ED if your symptoms worsen, change in location, change in severity, new symptoms develop or if you become concerned for your health. Clinical Impressions Clinical Impression: Constipation, Abdominal pain, RUQ, Abdominal pain, LLQ, Transaminitis Chest pain Qualifiers: Chest pain type: unspecified Qualified Code(s): R07.9 - Chest pain, unspecified Print Language Print Language: [place] Discharge ED Provider: Narciso Marsh Adult HPI General Chief complaint: PAIN Stated complaint: pain right side, vomiting, night sweats Time Seen by Provider: 10/16/25 12:54 History of Present Illness HPI narrative: Patient is a 30-year-old female with history of anxiety, hypertension. She presents today due to multiple complaints. She reports that for the last week, she has had some substernal occasional sharp and stabbing chest pains radiating to the right side of her chest. She reports that this happens at rest, and occasionally happens with exertion as well. She denies it being postprandial. She reports that she set up an appointment with her PCP to discuss these issues that is until yesterday when she began to have subjective fevers and chills, but no objective fever. She reports nausea without vomiting. She denies any diarrhea, in fact she reports that she has not had a bowel movement in 4 days. She does struggle with constipation. She is still passing gas. She denies any dysuria or hematuria. Reports chronic flank pain that she believes is somewhat worse. She has not tried anything at home for the pain. Notably, she has not had a menstrual cycle in 7 weeks. She denies any vaginal bleeding vaginal discharge or concern for sexually transmitted disease. She does vape, she drinks alcohol daily, upwards of 10 fireball's a day, and is recently trying to cut back, but she denies any withdrawal symptoms such as seizures, tremors, anxiety right now. Denies any drug use. Abdominal surgical history consisting of 2 sections. She denies any lower extremity edema or estrogen supplementation or OCPs denies any recent travel or surgeries. Related Data Previous Rx's ?Medication ?Instructions ?Recorded bisoprolol 5 1 tab PO DAILY #90 tabs /08/09 mg-hydrochlorothiazide 6.25 mg tablet hydroxyzine HCl 25 mg tablet See Rx Instructions .Rout e 07/12/25 .COMPLEX #100 tabs trazodone 100 mg tablet See Rx Instructions .Route 0 08/08/25 .COMPLEX #90 tabs fluticasone propionate 50 1 spray intranasal DAILY #16 grams 10/01/25 mcg/actuation nasal spray,suspension triamcinolone acetonide 0.1 % 1 applic topical TID PRN Rash on 10/01/25 topical cream legs #80 grams dicyclomine 20 mg tablet 20 mg PO QID PRN abdominal p ain 10/16/25 #30 tabs ondansetron 4 mg disintegrating 4 mg PO Q6H PRN nausea and 10/16/25 tablet vomiting #12 tabs Allergies Allergy/AdvReac Type Severity Reaction Status Date / Time No Known Allergies Allergy Verified 10/01/25 15:44 [facility] Disclaimer: The information contained in this section may have been updated after the patient was seen, as this information can be updated by other users. Medical History Genital herpes simplex Surgical History History of delivery Family History Other No significant family history Social History Smoking Status: Current every day smoker tobacco type: cigarettes packs per day: 1 alcohol intake: current alcohol intake frequency: a few times a month substance use type: denies use current occupational status: employed Travel in the last 8 weeks?: None household members: family caffeine: Yes Have you lived/traveled outside US in past 30 days?: No Contact w/someone who lives/traveled outside US past 30 days?: No Exposure to someone with infectious disease in past 14 days?: No Do you have a fever (greater than 100.4 F or 38 C)?: No Have you tested positive for COVID-19?: No Exposed to someone with COVID-19 in past 14 days?: No Do you have a sore throat?: No Do you have a cough?: No Do you have any weakness?: No Do you have any diarrhea?: No Are you experiencing any unusual bleeding?: No Do you have any muscle aches/pain?: No Do you have any abdominal pain?: No Are you experiencing loss of taste or smell?: No Other Medical History Have you received the Flu Vaccine for this season: No Have you received the Pneumonia Vaccine: No ROS Obtained: Yes All systems reviewed & no additional complaints except as documented Physical Exam General General appearance: alert, in no apparent distress and obese Head Head exam: atraumatic and normocephalic Eye Eye exam: Present PERRL and EOMI ENT ENT exam: Present normal oropharynx Neck Neck exam: Present full ROM and trachea midline Chest Chest inspection: Present symmetric chest wall rise Respiratory Respiratory exam: Present normal lung sounds bilaterally; Absent stridor Cardiovascular Cardiovascular exam: Present regular rate and normal rhythm Abdominal Exam Abdominal exam: Present soft and tenderness (Right upper quadrant and left lower quadrant); Absent distention or Burleson's sign Extremities Exam Extremities exam: Present full ROM Back Exam Back exam: Present CVA tenderness (R) and CVA tenderness (L) Neurological Exam Neurological exam: Present alert and oriented X3 Psychiatric Psychiatric exam: Present normal mood Skin Skin exam: Present warm and dry Medical Decision Making Medical Records Screening: Per USPSTF and CDC recommendations, given the prevalence of disease in our region, it is our hospital?s policy to screen for HIV and viral Hepatitis for all patients aged 18 and over and those with ongoing risk factors. [place] Inquiry Pt receiving controlled substance: No Vital Signs: 10/16/25 13:08 10/16/25 13:16 10/16/25 13:30 Temperature 99.0 F Temperature Source Oral Pulse Rate 88 Pulse Rate [Right] 83 Respiratory Rate 18 18 Blood Pressure 137/85 121/85 Blood Pressure [Right Arm] 145/99 H Blood Pressure Mean [Right Arm] 114 Blood Pressure Source Automatic Cuff Blood Pressure Source [Right Arm] Automatic Cuff Blood Pressure Position Sitting Blood Pressure Position [Right Arm] Sitting 02 Sat by Pulse Oximetry 99 97 Oxygen Delivery Method Room Air Room Air 10/16/25 14:00 10/16/25 14:30 Temperature Temperature Source Pulse Rate Pulse Rate [Right] Respiratory Rate 14 14 Blood Pressure 128/74 126/77 Blood Pressure [Right Arm] Blood Pressure Mean [Right Arm] Blood Pressure Source Blood Pressure Source [Right Arm] Blood Pressure Position Blood Pressure Position [Right Arm] 02 Sat by Pulse Oximetry Oxygen Delivery Method Lab Data Lab Results 10/16/25 12:55: Urine Color Yellow, Urine Appearance Clear, Urine pH 6.0, Ur Specific [place] 1.025, Urine Protein Negative, Urine Glucose (UA) Negative, Urine Ketones Negative, Urine Blood Negative, Urine Nitrate Negative, Urine Bilirubin Negative, Urine Urobilinogen 0.2, Ur Leukocyte Esterase Negative, Urine RBC None, Urine WBC None, Ur Squamous Epith Cells 5-10, Urine Bacteria None 10/16/25 13:05: WBC 5.6, RBC 4.93, Hgb 11.9 L, Hct 38.5, MCV 78.1 L, MCH 24.1 L, MCHC 30.9 L, RDW 15.2, Plt Count 378, MPV 9.9, Neut % (Auto) 51.1, Lymph % (Auto) 39.2, [place] % (Auto) 7.2, Eos % (Auto) 1.6, Baso % (Auto) 0.5, Neut # (Auto) 2.8, Lymph # (Auto) 2.2, [place] # (Auto) 0.4, Eos # (Auto) 0.1, Baso # (Auto) 0.0, Sodium 134 L, Potassium 3.5, Chloride 100, Carbon Dioxide 25, Anion Gap 12.5, BUN 19 H, Creatinine 0.80, Estimated Creat Clear 135, Estimated GFR 85, Est GFR ( Amer) 103, Glucose 165 H, Calcium 9.5, Magnesium 1.7, Total Bilirubin 0.3, AST 49 H, ALT 37, Alkaline Phosphatase 114, Troponin I < 0.01, T otal Protein 8.5 H, Albumin 4.6, Globulin 3.9 H, Albumin/Globulin Ratio 1.2, Lipase 115, Serum HCG, Qual Negative 10/16/25 13:19: SARS-CoV-2 (PCR) Not detected, Influenza A Untype (PCR) Not detected, Influenza Type B (PCR) Not detected 10/16/25 13:05 10/16/25 13:05 Orders (Tests/Meds): ED MEDICATIONS Discontinued Medications Generic Name Dose Route Start Last Admin Trade Name Darinq PRN Reason Stop Dose Admin Acetaminophen 1,000 mg 10/16/25 13:14 10/16/25 13:28 Acetaminophen 500mg Tab PO 10/16/25 13:15 1,000 mg ONCE ONE Administration Dicyclomine HCl 20 mg 10/16/25 13:14 10/16/25 13:28 Dicyclomine 10mg Capsule PO 10/16/25 13:15 20 mg ONCE ONE Administration Sodium Chloride 1,000 mls @ 999 mls/hr 10/16/25 13:14 10/16/25 14:30 Sod Chlor 0.9% 1000ml Bag IV 10/16/25 14:14 Infused .Q1H1M ONE Infusion Iopamidol 75 ml 10/16/25 13:48 10/16/25 13:49 Iopamidol-370 (76%);100ml Bottle IV 10/16/25 13:49 75 ml ONCE ONE Administration Ketorolac Tromethamine 15 mg 10/16/25 13:43 10/16/25 14:00 Ketorolac 15mg/Ml Vial IV 10/16/25 13:44 15 mg ONCE ONE Administration Ondansetron HCl 4 mg 10/16/25 13:14 10/16/25 13:30 Ondansetron 4mg/2ml Vial IV 10/16/25 13:15 4 mg ONCE ONE Administration Sodium Chloride 10 ml 10/16/25 13:48 10/16/25 13:49 Sodium Chloride 0.9% 10ml Syr (Rad Only) IV 10/16/25 13:49 10 ml ONCE ONE Administration ORDERS Category Date Time Status CT abdomen pelvis w con Stat Cat Scan 10/16/25 13:14 Completed Consult Visitor Services Technician [CONS] Routine Cons 10/16/25 15:13 Active XR chest portable Stat Exams 10/16/25 13:15 Completed CBC w/Auto Diff [Complete Blood Count Auto Diff] Stat Lab 10/16/25 13:05 Completed CMP [Comprehensive Metabolic Panel] Stat Lab 10/16/25 13:05 Completed HCG Qualitative, Serum Stat Lab 10/16/25 13:05 Completed Lipase Stat Lab 10/16/25 13:05 Completed MAG [Magnesium] Stat Lab 10/16/25 13:05 Completed Rapid PCR Covid and Flu A/B Stat Lab 10/16/25 13:19 Completed Trop I [Troponin I] Stat Lab 10/16/25 13:05 Completed Troponin I Q3H Lab 10/16/25 16:30 Ordered Troponin I Q3H Lab 10/16/25 19:30 Ordered UA [Urinalysis and Microscopic] Stat Lab 10/16/25 12:55 Completed ECG Data Tracing #1: Independently interpreted by me to demonstrate normal sinus rhythm with no obvious acute ischemic ST change. Intervals are within normal limits. HEART Score History (anamnesis): Slightly suspicious ECG: Normal Age: <45 years Risk factors: 1-2 risk factors Troponin: </= normal limit HEART Score: 1 Medical Decision Narrative: Patient is a 30-year-old female with history of anxiety and constipation and hypertension. On arrival, she is afebrile hemodynamically stable no acute distress. On exam is warm and well-perfused with full and equal pulses bilaterally and brisk cap refill. No concern for sepsis at this time. Oropharynx is clear with moist mucous membranes, appears well-hydrated. Heart is regular rate and rhythm and lung sounds are clear bilaterally. No rashes. No tenderness along the chest wall. Her abdomen is soft, she does have moderate tenderness in the right upper quadrant as well as significant tenderness in the left lower quadrant. Constipation is high on the differential given her history of this, but given that she is having some reproducible right upper quadrant pain and reports that it can occasionally radiates down her bellybutton, will proceed with cross-sectional region of the abdomen to rule out cholecystitis and appendicitis or other intra-abdominal pathology. Hematologic labs to rule out electrolyte derangement and screen for ACS. Consider cross-sectional imaging of the chest to rule out PE, but deferred given negative PERC criteria. Hematologic labs redemonstrate no leukocytosis no significant anemia, she does have a slight elevated AST to 49, this is likely secondary to alcohol use she is made aware of this and to follow-up outpatient. No evidence of UTI on my review of the urinalysis. hCG negative. No elevation in bilirubin or alk phos, low suspicion for obstructive process. COVID flu negative. Troponin negative, low suspicion for ACS. Heart score 1. I independently interpreted the chest x-ray to demonstrate no acute cardiopulmonary abnormality. On reassessment, patient has improvement in symptoms. She is tolerating oral intake here. On repeat abdominal examination, she is completely nontender diffusely. Reporting some intermittent right upper quadrant abdominal cramping, but negative cross-sectional imaging. I have instructed her to follow-up with her PCP which she has an appointment later this week to talk about an ultrasound versus HIDA scan. Though, today, no obstructive process on hematologic labs, nor obvious ductal dilation on cross-sectional imaging. Additionally, her abdominal exam is reassuring. I have high suspicion for constipation causing her abdominal pain in conjunction with a possible viral syndrome. Will send her with a bowel cleanout. She is instructed on alcohol cessation and will be given a referral to peers support. My clinical impression was discussed with the patient and all questions were answered. Return precautions were given, with verbalization of understanding and agreement of this plan. Any pending results are to be followed up online. Critical Care Critical Care Time Critical Care Time: No
--- OUTSIDE RECORDS SUMMARY | 2025-10-16 13:01 | XMS_ITS | Clinical Summary ---
Author Organization Healthcare Address [address] [place] [address] Care Team Providers Care Director Business Management Name Role Phone Holland Schmitt MD Primary Care Provider [phone] Allergies No known active allergies Medications valACYclovir [...] Date Last Done Comments [facility]-Depression Screening 1996 [facility]-/Child/Adol SDOH Screenings 1996 [facility]-Hepatitis B Vaccines (3 of 3 - 3-dose series) 03/28/1998 01/31/1998, 1996 [facility]-Varicella Vaccines (1 of 2 - 13+ 2-dose series) 2009 HPV Vaccines (3 - 3-dose series) 01/16/2013 08/31/2012, 07/19/2012 [facility]- SDOH Screenings 2014 [facility]-Adult SDOH Screenings 2014 [facility]-DTaP,Tdap,and Td Vaccines (7 - Td or Tdap) 06/14/2018 06/14/2008, 05/28/2000, 01/31/1998, Additional history exists [facility]-Pap Smear 04/03/2024 04/03/2021 [id number]-13 Vaccine ( - season) 2025 [facility]-Influenza Vaccine (#1) 2025 08/28/2019 [facility]-Zoster Vaccines [...] Narrative COPATH - 04/17/2021 2:50 PM EDT [facility] MR #: [id number] [facility] [place] [place], [place] [address] 1995 (Age: 25) FW Collect Date: 04/03/2021 00:00 Receipt Date: 04/09/2021 11:56 Page 1 DEPARTMENT OF PATHOLOGY AND LABORATORY MEDICINE CYTOPATHOLOGY REPORT Email: [email or web address] ATTENDING MD/Practitioner: Nila Baires Service: [facility] Location: [facility] Reported: 04/17/2021 14:50 Collected: 04/03/2021 00:00 INTERPRETATION A. THIN PREP (CERVICAL/VAGINAL): NEGATIVE FOR INTRAEPITHELIAL LESION OR MALIGNANCY. FUNGAL ORGANISMS CONSISTENT WITH KURTIS SPECIES. SATISFACTORY FOR EVALUATION; ENDOCERVICAL/ TRANSFORMATION ZONE COMPONENT PRESENT. Slide scanned and imaged by [employer] ThinPrep Imaging System with manual review of [...] results is suggested (please call Microbiology at [phone] for results). CLINICAL INFORMATION: Menstrual History: Cyclic Date of Last Menstrual Period: 24Mar2021 Other Clinical Conditions: If ASCUS and > 24 years of age, HPV/DNA testing requested. SPECIMEN DESCRIPTION: A: THIN PREP (CERVICAL/VAGINAL) THIN PREP PROCESS CELLULAR ENHANCEMENT ICD: F: A; RT IMAGE [id number] SNOMED CODES: A; [id number] In cases where a pathologist has signed out the report, the service has been rendered in part by a resident. The signing pathologist has performed and is responsible for the reported pathologic evaluation. Rula Zurita APRN, CNM LAB PATHOLOGY ORDER CHLOE Final Result COPATH from Last 3 Months or Most Recently Relevant to Health Maintenance Insurance [place] [id number] [employer] Care Teams Director Business Management Relationship Specialty Start Date End Date Holland Schmitt MD [address] [place] [address] PCP - General 03/28/21
--- NOTE | 2025-10-16 13:06 | ECG_ITS ---
APPROVED REPORT Exam: Resting ECG HR:85 bpm ECG Measurements Heart Rate 85 AXES TX 178 P 21 QRSd 89 QRS 62 QT 380 T 32 QTc 422 Conclusion SINUS RHYTHM NONSPECIFIC T-WAVE ABNORMALITY BORDERLINE ECG UNCONFIRMED REPORT Electronically signed by : Narciso Marsh, 10/16/2025 14:05:10
--- NOTE | 2025-10-16 13:14 | CT_ITS ---
FINAL REPORT TECHNIQUE: Thin section axial images are obtained through the abdomen and pelvis after intravenous contrast. Reconstruction images were obtained from the axial data. Exam was performed using dose reduction techniques. CLINICAL HISTORY: ruq and llq ttp, no BM in 4 days COMPARISON: 06/01/2025 FINDINGS: LUNG BASES: Lung bases are clear. Heart size is normal. LIVER: Fatty infiltrated. No focal lesion. GALLBLADDER/BILIARY SYSTEM: Gallbladder is present. No gallstones. No biliary dilatation. SPLEEN: Unremarkable. PANCREAS: Unremarkable. ADRENALS: Unremarkable. KIDNEYS/URETERS/BLADDER: No hydronephrosis, renal mass, or renal stone. Unremarkable urinary bladder. GI TRACT: No small bowel obstruction or dilatation. Normal appendix. No acute colon abnormality. PELVIC ORGANS: Uterus unremarkable. Right adnexal cyst measuring 42 mm is likely an ovarian cyst and likely functional in a patient this age. LYMPH NODES/RETROPERITONEUM/MESENTERY: No lymphadenopathy. No abdominal aortic aneurysm. ABDOMINAL WALL: The abdominal wall is intact. FREE FLUID: No ascites. BONES: No acute osseous abnormality. IMPRESSION: No findings suggesting an etiology for right upper quadrant or left lower quadrant pain. Right ovarian cysts, likely functional cyst in a patient this age. Reviewed, Interpreted and Dictated by Victoria Chacon MD Transcribed by Zulma Moore Authenticated and [facility][1]
--- NOTE | 2025-10-16 13:15 | XR_ITS ---
FINAL REPORT CLINICAL HISTORY: cp, vapes, cough COMPARISON: 05/03/2024 FINDINGS: A portable view of the chest was obtained. Cardiac and mediastinal silhouettes are within normal limits. The lungs are clear. There is no pleural effusion or pneumothorax. IMPRESSION: No acute process on this portable exam. Reviewed, Interpreted and Dictated by Victoria Chacon MD Transcribed by Zulma Moore Authenticated and [facility]
[2025-10-16 13:24] LABS: Microscopic, Urine URINE MICROSCOPIC (MICROSCOPIC)
[2025-10-16 13:24] LABS: Coronavirus 19, PCR Not Detected (NotDetected); Influenza A, PCR Not Detected (NotDetected); Influenza B, PCR Not Detected (NotDetected)
[2025-10-16] MEDS: ACETAMINOPHEN 500MG TAB 1000 MG PO (13:28)
[2025-10-16 13:29] LABS: Hematocrit 38.5 % (37.0-47.0); Hemoglobin 11.9 g/dL (12.2-16.2); Immature Granulocytes % 0.4 %; Mean Corpuscular HGB Conc 30.9 g/dL (31.8-35.4); Mean Corpuscular Hemoglobin 24.1 pg (27.0-31.2); Mean Corpuscular Volume 78.1 fl (81-99); Nucleated Red Blood Cells % 0 %; Platelet Count 378 K/mm3 (142-424); Red Blood Count 4.93 M/mm3 (4.20-5.40); Red Cell Distribution Width-SD 42.8 fL; White Blood Count 5.6 K/mm3 (4.8-10.8)
[2025-10-16 13:30] LABS: Bilirubin,Urine Negative (Negative); Color,Urine YELLOW (Yellow); Glucose,Urine (UA) Negative (Negative); Ketones,Urine Negative (Negative); Leukocyte Esterase,Urine Negative (Negative); PH,Urine 6.0 (5.0-8.5); Protein,Urine Negative (Negative); Specific Gravity, Urine 1.025 (1.005-1.030); Urobilinogen,Urine 0.2 EU/dl (0.2)
[2025-10-16] MEDS: ONDANSETRON 4MG/2ML VIAL 4 MG IV (13:30)
[2025-10-16 13:33] LABS: Alanine Aminotransferase 37 U/L (12-78); Albumin Level 4.6 g/dl (3.5-5.0); Albumin/Globulin Ratio 1.2 (1.1-1.8); Alkaline Phosphatase 114 U/L (38-126); Anion Gap 12.5 mEq/L (5-15); Aspartate Amino Transferase 49 U/L (14-36); Bilirubin,Total 0.3 mg/dl (0.2-1.3); Blood Urea Nitrogen 19 mg/dl (7-17); Calcium 9.5 mg/dl (8.4-10.2); Carbon Dioxide 25 mmol/L (22.0-30.0); Chloride 100 mmol/L (98-107); Creatinine Clearance Estimated 135 mL/min (50-200); Creatinine,Serum 0.80 mg/dl (0.52-1.04); Estimated Glomerular Filt Rate 85 ml/min (>60); GFR (African American) 103 ML/MIN (>60); Globulin 3.9 g/dL (1.3-3.2); Glucose 165 mg/dl (74-100); Lipase 115 U/L (23-300); Magnesium 1.7 mg/dl (1.6-2.3); Potassium 3.5 mmoL/L (3.5-5.1); Sodium 134 mmol/L (136-145); Total Protein,Serum 8.5 g/dl (6.3-8.2)
[2025-10-16] MEDS: 0.9 % SODIUM CHLORIDE 1000ML 1,000 ML 999 ML IV (13:34)
[2025-10-16 13:40] LABS: HCG Qualitative, Serum Negative (Negative)
[2025-10-16 13:46] LABS: Troponin I < 0.01 ng/ml (0.00-0.034)
[2025-10-16] MEDS: SODIUM CHLORIDE 0.9% 10ML SYR (RAD ONLY) 10 ML IV (13:49)
[2025-10-16] MEDS: IOPAMIDOL-370 (76%);100ML BOTTLE 75 ML IV (13:49)
[2025-10-16] MEDS: KETOROLAC 15MG/ML VIAL 15 MG IV (14:00)
--- NOTE | 2025-10-16 15:07 | PC.NURSE ---
Provider to bedside to speak with patient.
--- NOTE | 2025-10-16 16:44 | PEERSUPPORT ---
Peer Support Note Patient Information Patient Information: DOS: 10/16/2025 Ps follow up: Phone call post dc Pts phone not accepting calls at this time. Ps will follow up on 10/17/2025
== END 2025-10-16 15:34 | disposition home or self-care (01) ==
PROVIDERS: Emergency Provider Emergency Medicine; PCP Internal Medicine
DX: R10.11 Right upper quadrant pain (principal); R10.32 Left lower quadrant pain; R74.01 Elevation of levels of liver transaminase levels; K59.00 Constipation, unspecified; F17.210 Nicotine dependence, cigarettes, uncomplicated; F10.90 Alcohol use, unspecified, uncomplicated
CPT/HCPCS: 71045; 74177; 80053; 81001; 83690; 83735; 84484; 84703; 85025; 87636; 93005; 96361; 96374; 96375; 99285; J1885; J2405; J7030; Q9967

== ENCOUNTER 2025-10-18 09:53 | Outpatient (CLI) | payer OTHER, SELFPAY ==
--- OUTSIDE RECORDS SUMMARY | 2025-10-18 10:14 | XMS_ITS | Data Portability ---
Author Organization [facility] Address [address] [place] [address] Care Team Providers Care Revenue Field Agent Name Role Phone ANA BUSTILLO Leadership Intern [phone] Assessment No assessment recorded. Plan of Treatment Reminders Order Date Submit Date Provider Last Modified By Organization Details Last Modified Time Details Appointments None recorded. Lab None recorded. Referral None recorded. Procedures None recorded. Surgeries None recorded. Imaging None recorded. Medication Orders Medrol (Dannie) 4 mg tablets in a dose pack 2017 018 INTERFACE [facility] [place], [address], 8 14:06:13 Patient TargetsNo targets recorded. Patient Instructions Encounter Date Encounter Id Patient Instructions Last Modified By Organization Details Last Modified Time 09/06/2018 [id number] right knee. Date of Injury: 12/17/17 No traumatic injury: Has one process where she has to flex knee (Due to Height) Issues with stairs. in and out of auto, pivot. Patient stated that Right Knee Gives Way Has had no Injection, 2 months Physical Therapy Off since 08/29/18 at [facility] Medial and Posterior Pain (Posterior Constant while at work) No low back or Right Hip Pain ___ Exam: Palpation: medial joint line Yes plica Yes medial hamstring Yes Right Knee ROM: 0 - 130 ___ Plan: Order MRI to evaluate possible mm tear which we discussed the options for Medrol Dose Pac script given today Work Status: Modified Duty: Sit down work Only RC: after MRI phester Not available 09/14/2018 23:56:09 09/20/2018 [id number] right knee medial pain likely plica Date Of Injury: 12/17/17 Patients MRI was denied by WC Patient has had Physical THerapy 2 times per week for 3 months without benefit Patient stated that she is still having Issues with Stairs, sit to stand, Sleeping pain Exam: Right Knee: Plica / Possible Medial meniscus Tear Palpation: medial joint line Yes pes bursa Yes plica Yes medial hamstring Yes lateral hamstring Yes Right Knee ROM: 0 - 130 Plan: Right Knee Scope: Excision of Plica Work Status: Modified Duty: Sit down work only RC: HFU after Surgery phester Not available 09/26/2018 22:12:24 10/04/2018 [id number] right knee. Date of Injury: 12/17/17 MRI / Surgery have been denied by [facility] Patient has seen [facility] physician Patient stated that her Right Knee feels the same Pain level today 12/25 Exam: Palpation: medial joint line Yes plica Yes medial hamstring Yes patella Yes Patella crepitance Yes Meniscus: Nancy's Medial Positive (Plica) Plan: likely plica by her complaints patient has asked to be released back to regular duty Work Status: Regular Duty PRN phester Not available 10/15/2018 23:40:30 Reason for Referral None Reported. Problems Name Problem SNOMED Code Status Onset Date Resolution Date Notes Provider Name and Address Organization Details Recorded Time Acute vaginitis 81020425 Active 2014 From Automated Load;Provi bertha: Raina Keller tatus: Active Not Available [facility] 6 08:12:10 Inflammati on of cervix 20314518 Active 2014 From Automated Load;Provi bertha: Raina Keller tatus: Active Not Available [facility] 6 08:12:11 Sexually transmitte d infectious disease 9227040 Active 2014 Provider: Car Garza;Stat us: Active Not Available [facility] 6 08:12:10 Herpetic vulvovagin itis 49147866 Active 2014 From Automated Load;Provi bertha: Car Garza;Stat us: Active Not Available [facility] 6 08:12:11 Notes:: Depression Screening* Date:08/13/2015 Problem Notes None recorded. Medical Equipment None Reported. Allergies No known drug allergies Medications Name Sig Start Date Stop Date Status Note LastModified by Organization Details LastModified Time Medrol (Dannie) 4 mg tablets in a dose pack as duirected 018 active Not Available Not Available Not Avai lable Valtrex 1 gram tablet 015 active Instruc tions: Take one tablet by mouth twice a day x7 days and then take one tablet by mouth daily;M morgan on Descrip tion: valacyc lovir; Route:o ral; refills :6; Quantit y:60 tablet Not Available Not Available Not Available Vitals Date Recorded Body height Body mass index (BMI) Body weight Systolic And Diastolic Provider Name and Address Organization Details Last Updated DateTime 09/06/2018 154.94 cm 29.3 kg/m2 73183.82 g 139/87 mm[Hg] Annika Nelson [facility] 09/06/2018 13:39:02 Date Recorded Body height Body mass index (BMI) Body weight Systolic And Diastolic Provider Name and Address Organization Details Last Updated DateTime 09/20/2018 154.94 cm 29.3 kg/m2 11786.82 g 133/81 mm[Hg] Annika Nelson [facility] 09/20/2018 16:27:44 Date Recorded Body height Body mass index (BMI) Body weight Systolic And Diastolic Provider Name and Address Organization Details Last Updated DateTime 10/04/2018 154.94 cm 29.3 kg/m2 97976.82 g 149/99 mm[Hg] Annika Nelson [facility] 10/04/2018 11:09:20 Social History Question Answer Notes LastModified by Organizat ion Details LastModified Time Tobacco Smoking Status Former Smoker Annika Nelson [facility] 09/06/2018 13:39:14 What Was The Date Of Your Most Recent Tobacco Screening? 10/04/2018 Information n ot available 01/02/2020 Sex: Unknown Functional Status None recorded. Mental Status None recorded. Family History Nothing Reported. Medical History No medical history recorded. Gynecological HistoryNo gynecological history recorded. Obstetrics History GPAL:G 0 P 0 0 0 0 Past Encounters Encounter ID Performer Location Encounter Start Date Encounter Closed Date Diagnosis/Indication Diagnosis SNOMED-CT Code Diagnosis ICD10 Code Diagnosis IMO Codes Diagnosis Note [id number] GORDY VILLALBA [facility] [address] [address] 09/06/2018 13:18:51 09/06/2018 14:22:58 Pain in right knee [id number] 52465 M25.621 [id number] GORDY VILLALBA [facility] [address] [address] 09/20/2018 14:47:49 09/27/2018 07:50:40 Pain in right knee [id number] 58466 M25.348 [id number] GORDY VILLALBA [facility] [address] [address] 10/04/2018 10:57:50 10/17/2018 08:37:42 Pain in right knee 1724879268 83884 M25.561 Health Concerns Section Related Observation LastModified by Organization Detai ls LastModified Time None Recorded Concern Status LastModified by Organization Details LastModified Time None Recorded Advance Directives Directive None Recorded Payers Insurance Date Sequence Insurance Name Policy Number Policy De La Cruz Covered Member ID De La Cruz Member ID Guarantor Name 08/23/2018 [facility] 01/23/2019 1 *SELF PAY* Carla Ma Notes Date Note Type Note Provider Name and Address Organization Details Recorded Time 09/06/2018 text/html PCP: Holland Schmitt MD SEEN FOR CONSULTATION AT THE REQUEST OF: Work comp WHAT: Right Knee WHERE: [facility] WHEN: 2017 HOW: No traumatic injury. After working a shift, patient has posterior pain and medial pain. Click in knee. Has one process where she has to flex knee (Due to Height) Issues with stairs. in and out of auto, pivot. Patient stated that Right Knee Gives Way Has had no Injection, no Physical Therapy due to denial Off since 08/29/18 at [facility] Medial and Posterior Pain (Posterior Constant while at work) No low back or Right Hip Pain GORDY VILLALBA MD [facility] [place], [address], [facility] 09/14/2018 23:56:21 09/20/2018 text/html [facility] Rt Knee - MRI denied Patient states right knee is about the same since last visit. 9 months r knee pain ==== PCP: Holland Schmitt MD SEEN FOR CONSULTATION AT THE REQUEST OF: Work comp WHAT: Right Knee WHERE: [facility] WHEN: 2017 HOW: No traumatic injury. After working a shift, patient has posterior pain and medial pain. Click in knee. Has one process where she has to flex knee (Due to Height) Issues with stairs. in and out of auto, pivot. Patient stated that Right Knee Gives Way Has had no Injection, no Physical Therapy due to denial Off since 08/29/18 at [facility] Medial and Posterior Pain (Posterior Constant while at work) No low back or Right Hip Pain GORDY VILLALBA MD [facility] [place], [address], [facility] 09/26/2018 22:12:53 10/04/2018 text/html Patient states right knee is about the same since last visit. right knee. Date of Injury: 12/17/17 MRI / Surgery have been denied by Patient has seen [facility] physician Patient stated that her Right Knee feels the same Pain level today 12/25 ======= [facility] Rt Knee - MRI denied Patient states right knee is about the same since last visit. 9 months r knee pain ==== PCP: Holland Schmitt MD SEEN FOR CONSULTATION AT THE REQUEST OF: Work comp WHAT: Right Knee WHERE: [facility] WHEN: 2017 HOW: No traumatic injury. After working a shift, patient has posterior pain and medial pain. Click in knee. Has one process where she has to flex knee (Due to Height) Issues with stairs. in and out of auto, pivot. Patient stated that Right Knee Gives Way Has had no Injection, no Physical Therapy due to WC denial Off since 08/29/18 at [facility] Medial and Posterior Pain (Posterior Constant while at work) No low back or Right Hip Pain GORDY VILLALBA MD [address] [place] [address], [address], [facility] 10/15/2018 23:40:49 OBGyn Episode No OBEpisode recorded.
--- OUTSIDE RECORDS SUMMARY | 2025-10-18 10:14 | XMS_ITS | Clinical Summary ---
Author Organization Healthcare Address [address] [place] [address] Care Team Providers Care Production Foreman Name Role Phone Holland Schmitt MD Primary Care Provider [phone] Allergies No known active allergies Medications valACYclovir [...] Additional history exists [facility]-Pap Smear 04/03/2024 04/03/2021 [id number] Vaccine ( - season) 2025 [facility]-Influenza Vaccine [...] Narrative COPATH - 04/17/2021 2:50 PM EDT [facility] MR #: [id number] [facility] [address] [place], [place] [address] 1995 (Age: 25) FW Collect Date: 04/03/2021 00:00 Receipt Date: 04/09/2021 11:56 Page 1 DEPARTMENT OF PATHOLOGY AND LABORATORY MEDICINE CYTOPATHOLOGY REPORT Email: [email or web address], [facility] [phone] ATTENDING MD/Practitioner: Nila Baires Service: [facility] Location: [facility] Reported: 04/17/2021 14:50 Collected: 04/03/2021 00:00 INTERPRETATION A. THIN PREP (CERVICAL/VAGINAL): NEGATIVE FOR INTRAEPITHELIAL LESION OR MALIGNANCY. FUNGAL ORGANISMS CONSISTENT WITH KURTIS SPECIES. SATISFACTORY FOR EVALUATION; ENDOCERVICAL/ TRANSFORMATION ZONE COMPONENT PRESENT. Slide scanned and imaged by [employer] ThinPrep Imaging System with manual review of [...] results is suggested (please call Microbiology at [phone] for results). CLINICAL INFORMATION: Menstrual History: Cyclic Date of Last Menstrual Period: 24Mar2021 Other Clinical Conditions: If ASCUS and > 24 years of age, HPV/DNA testing requested. SPECIMEN DESCRIPTION: A: THIN PREP (CERVICAL/VAGINAL) THIN PREP PROCESS CELLULAR ENHANCEMENT ICD: F: A; RT IMAGE 38150 SNOMED CODES: A; O3F504 [id number] [id number] E4080 M-02901 In cases where a pathologist has signed out the report, the service has been rendered in part by a resident. The signing pathologist has performed and is responsible for the reported pathologic evaluation. Rual Zurita APRN, CNM LAB PATHOLOGY ORDER CHLOE Final Result COPATH from Last 3 Months or Most Recently Relevant to Health Maintenance Insurance [place] [id number] [employer] Care Teams Production Foreman Relationship Specialty Start Date End Date Holland Schmitt MD [address] [facility] [address] [place] [address] PCP - General 03/28/21
--- NOTE | 2025-10-18 10:15 | US_ITS ---
FINAL REPORT CLINICAL HISTORY: Right upper quadrant abdominal pain with nausea/vo FINDINGS: Sonographic images of the right upper quadrant were obtained. The pancreas is partially obscured. There is mild fatty infiltration of the liver. The gallbladder may be incompletely distended. There is no evidence of gallstones.There is no evidence of biliary ductal dilatation.The common duct measures 3 mm. Limited images of the right kidney are unremarkable. IMPRESSION: Mild fatty liver. Possible incomplete distention of the gallbladder. Reviewed, Interpreted and Dictated by Cameron Yu MD Transcribed by Zulma Moore Authenticated and . [facility]
== END 2025-10-18 23:59 | disposition home or self-care (01) ==
LOC: RAD 09:53
PROVIDERS: PCP Internal Medicine; Visit Provider Internal Medicine
DX: K76.0 Fatty (change of) liver, not elsewhere classified (principal); R10.11 Right upper quadrant pain; R11.2 Nausea with vomiting, unspecified; R93.2 Abnormal findings on diagnostic imaging of liver and biliary tract
CPT/HCPCS: 76705